=== PATIENT | male | born 1940 | race Caucasian/White ===

== ENCOUNTER → 2017-05-13 | Outpatient (CLI) | payer MEDICARE ==
[2017-05-13 16:47] LABS: ALT 34 U/L (21-72); AST 21 U/L (17-59); Alkaline Phosphatase 79 U/L (38-126); Anion Gap 13 mmol/L; Blood Urea Nitrogen 11 mg/dL (9-20); Carbon Dioxide 27 mmol/L (22-30); Chloride 102 mmol/L (98-107); Cholesterol 201 mg/dL (<200); Glucose 98 mg/dL (74-99); HDL Cholesterol 81 mg/dL (40-60); Non-African American GFR(MDRD) >60 (>60 ml/min/1.73 sqM); Sodium 142 mmol/L (137-145); Total Bilirubin 0.9 mg/dL (0.2-1.3); Total Protein 7.1 g/dL (6.3-8.2)
== END | disposition home or self-care (01) ==
LOC: LABWHC1 16:03
PROVIDERS: ATTEND Internal Medicine Interventional Cardiology
DX: E78.2 Mixed hyperlipidemia (principal)
CPT/HCPCS: 36415; 80053; 80061

== ENCOUNTER → 2018-05-14 | Outpatient (CLI) | payer MEDICARE ==
[2018-05-14 13:53] LABS: ALT 28 U/L (21-72); AST 23 U/L (17-59); Cholesterol 168 mg/dL (<200); HDL Cholesterol 78 mg/dL (40-60); LDL Cholesterol,Calculated 77 mg/dL (0-99); Triglycerides 64 mg/dL (<150)
== END | disposition home or self-care (01) ==
LOC: LABWHC1 13:24
PROVIDERS: ATTEND Internal Medicine Interventional Cardiology
DX: E78.2 Mixed hyperlipidemia (principal)
CPT/HCPCS: 36415; 80061; 84450; 84460

== ENCOUNTER → 2018-12-07 | Outpatient (CLI) | payer MEDICARE ==
[2018-12-07 18:44] LABS: Albumin 4.4 g/dL (3.80-4.90); Albumin/Globulin Ratio 1.83 (1.60-3.17); Anion Gap 6.3 mmol/L (4.00-12.00); Calcium 9.4 mg/dL (8.7-10.3); Carbon Dioxide 26.7 mmol/L (21.6-31.8); Globulin 2.4 g/dL (1.6-3.3); LDL Cholesterol,Calculated 91.4 mg/dL (0.0-131.0); Potassium 4.3 mmol/L (3.5-5.5); Total Bilirubin 0.9 mg/dL (0.3-1.2); Total Protein 6.8 g/dL (6.2-8.2); VLDL Calculation 21.6 mg/dL (5.00-40.00)
== END | disposition home or self-care (01) ==
LOC: LABWHC1 13:12
PROVIDERS: ATTEND Internal Medicine Interventional Cardiology
DX: E78.2 Mixed hyperlipidemia (principal)
CPT/HCPCS: 36415; 80053; 80061

== ENCOUNTER → 2019-06-16 | Outpatient (CLI) | payer MEDICARE ==
[2019-06-16 21:46] LABS: Chol/HDL Ratio 2.62; LDL Cholesterol,Calculated 98.6 mg/dL (0.0-131.0); VLDL Calculation 19.4 mg/dL (5.00-40.00)
== END | disposition home or self-care (01) ==
LOC: LABWHC1 14:09
PROVIDERS: ATTEND Nurse Practitioner Adult Health
DX: E78.2 Mixed hyperlipidemia (principal)
CPT/HCPCS: 36415; 80061; 84450; 84460

== ENCOUNTER → 2019-08-17 | Outpatient (CLI) | payer MEDICARE ==
[2019-08-17 19:21] LABS: Chol/HDL Ratio 2.81; LDL Cholesterol,Calculated 96.8 mg/dL (0.0-131.0); VLDL Calculation 17.2 mg/dL (5.00-40.00)
== END | disposition home or self-care (01) ==
LOC: LABWHC1 12:08
PROVIDERS: ATTEND Nurse Practitioner Adult Health
DX: E78.2 Mixed hyperlipidemia (principal)
CPT/HCPCS: 36415; 80061; 84450; 84460

== ENCOUNTER → 2020-06-26 | Outpatient (CLI) | payer MEDICARE ==
[2020-06-26 21:10] LABS: African American GFR (CKD) 98.5 (60.0-200.0); Albumin 4.1 g/dL (3.80-4.90); Albumin/Globulin Ratio 1.86 (1.60-3.17); Anion Gap 9.2 mmol/L (4.00-12.00); Calcium 9.3 mg/dL (8.7-10.3); Carbon Dioxide 25.8 mmol/L (21.6-31.8); Chol/HDL Ratio 2.53; Globulin 2.2 g/dL (1.6-3.3); LDL Cholesterol,Calculated 96.6 mg/dL (0.0-131.0); Potassium 4.4 mmol/L (3.5-5.5); Total Bilirubin 0.9 mg/dL (0.3-1.2); Total Protein 6.3 g/dL (6.2-8.2); VLDL Calculation 15.4 mg/dL (5.00-40.00)
== END | disposition home or self-care (01) ==
LOC: LABWHC1 13:08
PROVIDERS: ATTEND Internal Medicine Interventional Cardiology
DX: E78.2 Mixed hyperlipidemia (principal)
CPT/HCPCS: 36415; 80053; 80061

== ENCOUNTER → 2020-12-06 | Outpatient (CLI) | payer MEDICARE ==
[2020-12-07 02:27] LABS: African American GFR (CKD) 60.1 (60.0-200.0); Albumin 4.1 g/dL (3.80-4.90); Albumin/Globulin Ratio 2.05 (1.60-3.17); Anion Gap 11.5 mmol/L (4.00-12.00); BUN/Creat Ratio 13.85 Ratio (12.00-20.00); Calcium 9.6 mg/dL (8.7-10.3); Carbon Dioxide 24.5 mmol/L (21.6-31.8); Non-African American GFR(CKD) 51.9 (60.0-200.0); Potassium 4.3 mmol/L (3.5-5.5); Total Bilirubin 1.4 mg/dL (0.3-1.2); Total Protein 6.1 g/dL (6.2-8.2)
== END | disposition home or self-care (01) ==
LOC: LABWHC1 11:04
PROVIDERS: ATTEND Nurse Practitioner Adult Health
DX: I25.5 Ischemic cardiomyopathy (principal); R60.0 Localized edema
CPT/HCPCS: 36415; 80053; 83880

== ENCOUNTER 2020-12-07 11:59 | Inpatient (IN) | payer MEDICARE ==
[2020-12-07] MEDS ORDERED: FUROSEMIDE 10 MG/ML 4 ML VIAL IV STA (13:46)
--- NOTE | 2020-12-07 13:51 | ED ---
General Adult HPI - General Chief complaint: Shortness of Breath Stated complaint: SOB Time Seen by Provider: 12/07/20 12:10 Source: patient, RN notes reviewed, old records reviewed Mode of arrival: ambulatory Limitations: no limitations - History of Present Illness Initial comments: This is a 80-year-old male who presents emergency Department complaining of difficulty breathing. Patient states been ongoing for about a month. Patient states had a 15 pound weight gain in one month. Patient denies any chest pain or palpitations. Patient denies any cough fever chills per patient denies abdominal pain patient denies nausea vomiting diarrhea per patient denies headache patient denies lightheadedness dizziness or syncopal episode. Patient states he edema to his legs is now gone up into his thighs and is getting quite significant. [facility] and they sent him over here to be evaluated. - Related Data Home Medications Medication Instructions Recorded Confirmed Aspirin EC [Ecotrin Low Dose] 81 mg PO DAILY@0400 12/07/20 12/07/20 Atenolol [Tenormin] 50 mg PO DAILY@0400 12/07/20 12/07/20 Atorvastatin [Lipitor] 80 mg PO DAILY@0400 12/07/20 12/07/20 Ezetimibe [Zetia] 10 mg PO DAILY@0400 12/07/20 12/07/20 Furosemide [Lasix] 40 mg PO DAILY 12/07/20 12/07/20 Nitroglycerin Sl Tabs [Nitrostat] 0.4 mg SUBLINGUAL Q5M PRN 12/07/20 12/07/20 lisinopriL [Zestril] 5 mg PO DAILY@0400 12/07/20 12/07/20 Allergies Allergy/AdvReac Type Severity Reaction Status Date / Time No Known Allergies Allergy Verified 12/07/20 14:11 Review of Systems ROS Statement: Those systems with pertinent positive or pertinent negative responses have been documented in the HPI. ROS Other: All systems not noted in ROS Statement are negative. Past Medical History Past Medical History: Heart Failure, Myocardial Infarction ([place]) History of Any Multi-Drug Resistant Organisms: None Reported Past Surgical History: Heart Catheterization Additional Past Surgical History / Comment(s): liver lac repair, SPLENECTOMY. Past Psychological History: No Psychological Hx Reported Smoking Status: Never smoker Past Alcohol Use History: Occasional Past Drug Use History: None Reported General Exam - General Exam Comments Initial Comments: GENERAL: Patient is well-developed and well-nourished. Patient is nontoxic and well- hydrated and is in mild distress. ENT: Neck is soft and supple. No significant lymphadenopathy is noted. Oropharynx is clear. Moist mucous membranes. Neck has full range of motion without eliciting any pain. EYES: The sclera were anicteric and conjunctiva were pink and moist. Extraocular mo vements were intact and pupils were equal round and reactive to light. Eyelids were unremarkable. PULMONARY: Unlabored respirations. Good breath sounds bilaterally. Patient has decreased breath sounds on the right. CARDIOVASCULAR: There is a regular rate and rhythm without any murmurs gallops or rubs. ABDOMEN: Soft and nontender with normal bowel sounds. SKIN: Skin is clear with no lesions or rashes and otherwise unremarkable. NEUROLOGIC: Patient is alert and oriented x3. Cranial nerves II through XII are grossly intact. Motor and sensory are also intact. Normal speech, volume and content. Symmetrical smile. MUSCULOSKELETAL: Normal extremities with adequate strength and full range of motion. 2+ edema bilaterally in the legs. LYMPHATICS: No significant lymphadenopathy is note PSYCHIATRIC: Normal psychiatric evaluation. Limitations: no limitations Course Vital Signs 12/07/20 12:13 Temperature 97.7 F Pulse Rate 59 L Respiratory 18 Rate Blood Pressure 106/66 O2 Sat by Pulse 96 Oximetry Medical Decision Making - Medical Decision Making EKG shows sinus bradycardia with multiple PVCs at 56 bpm KS interval 290 QRS 134 QT interval [address] segment elevation no ST segment elevation or depression X-ray shows large pleural effusion on the right side. [facility] admitted to the neck on the patient today and he suggested infection was 15% down from 45 which is his baseline. [facility] agreed to admit the patient admitted the patient I wrote admitting orders and I consult cardiology. - Lab Data Result diagrams: 12/07/20 13:49 12/07/20 13:49 Lab Results 12/07/20 12/07/20 12/07/20 Range/Units 13:49 13:49 13:49 WBC 5.5 (3.8-10.6) k/uL RBC 4.08 L (4.30-5.90) m/uL Hgb 13.1 (13.0-17.5) gm/dL Hct 39.1 (39.0-53.0) % MCV 95.8 (80.0-100.0) fL MCH 32.1 (25.0-35.0) pg MCHC 33.4 (31.0-37.0) g/dL RDW 14.5 (11.5-15.5) % Plt Count 144 L (150-450) k/uL MPV 8.5 Neutrophils % 62 % Lymphocytes % 24 % Monocytes % 9 % Eosinophils % 2 % Basophils % 1 % Neutrophils # 3.4 (1.3-7.7) k/uL Lymphocytes # 1.4 (1.0-4.8) k/uL Monocytes # 0.5 (0-1.0) k/uL Eosinophils # 0.1 (0-0.7) k/uL Basophils # 0.0 (0-0.2) k/uL PT 13.6 H (9.0-12.0) sec INR 1.3 H (<1.2) APTT 24.3 (22.0-30.0) sec Sodium 139 (137-145) mmol/L Potassium 4.3 (3.5-5.1) mmol/L Chloride 105 (98-107) mmol/L Carbon Dioxide 27 (22-30) mmol/L Anion Gap 7 mmol/L BUN 21 H (9-20) mg/dL Creatinine 1.22 (0.66-1.25) mg/dL Est GFR (CKD-EPI)AfAm 65 (>60 ml/min/1.73 sqM) Est GFR (CKD-EPI)NonAf 56 (>60 ml/min/1.73 sqM) Glucose 105 H (74-99) mg/dL Plasma Lactic Acid Shane (0.7-2.0) mmol/L Calcium 9.5 (8.4-10.2) mg/dL Total Bilirubin 1.3 (0.2-1.3) mg/dL AST 33 (17-59) U/L ALT 31 (4-49) U/L Alkaline Phosphatase 99 (38-126) U/L Total Protein 6.2 L (6.3-8.2) g/dL Albumin 3.6 (3.5-5.0) g/dL 12/07/20 Range/Units 13:49 WBC (3.8-10.6) k/uL RBC (4.30-5.90) m/uL Hgb (13.0-17.5) gm/dL Hct (39.0-53.0) % MCV (80.0-100.0) fL MCH (25.0-35.0) pg MCHC (31.0-37.0) g/dL RDW (11.5-15.5) % Plt Count (150-450) k/uL MPV Neutrophils % % Lymphocytes % % Monocytes % % Eosinophils % % Basophils % % Neutrophils # (1.3-7.7) k/uL Lymphocytes # (1.0-4.8) k/uL Monocytes # (0-1.0) k/uL Eosinophils # (0-0.7) k/uL Basophils # (0-0.2) k/uL PT (9.0-12.0) sec INR (<1.2) APTT (22.0-30.0) sec Sodium (137-145) mmol/L Potassium (3.5-5.1) mmol/L Chloride (98-107) mmol/L Carbon Dioxide (22-30) mmol/L Anion Gap mmol/L BUN (9-20) mg/dL Creatinine (0.66-1.25) mg/dL Est GFR (CKD-EPI)AfAm (>60 ml/min/1.73 sqM) Est GFR (CKD-EPI)NonAf (>60 ml/min/1.73 sqM) Glucose (74-99) mg/dL Plasma Lactic Acid Shane 1.1 (0.7-2.0) mmol/L Calcium (8.4-10.2) mg/dL Total Bilirubin (0.2-1.3) mg/dL AST (17-59) U/L ALT (4-49) U/L Alkaline Phosphatase (38-126) U/L Total Protein (6.3-8.2) g/dL Albumin (3.5-5.0) g/dL Disposition Clinical Impression: Pleural effusion, Dyspnea, Pedal edema, Cardiac LV ejection fraction <20% Disposition: ADMITTED IP TO THIS [facility] Referrals: None,Stated [Primary Care Provider] - 1-2 days Time of Disposition: 14:29
[2020-12-07 14:00] LABS: Basophils % (A) 1 %; Eosinophils # (A) 0.1 k/uL (0-0.7); Eosinophils % (A) 2 %; HCT 39.1 % (39.0-53.0); HGB 13.1 gm/dL (13.0-17.5); Lymphocytes # (A) 1.4 k/uL (1.0-4.8); Lymphocytes % (A) 24 %; MCH 32.1 pg (25.0-35.0); MCHC 33.4 g/dL (31.0-37.0); MCV 95.8 fL (80.0-100.0); Mean Platelet Volume 8.5; Monocytes # (A) 0.5 k/uL (0-1.0); Monocytes % (A) 9 %; Neutrophils # (A) 3.4 k/uL (1.3-7.7); Neutrophils % (A) 62 %; Platelet Count 144 k/uL (150-450); RBC 4.08 m/uL (4.30-5.90); RDW 14.5 % (11.5-15.5); WBC 5.5 k/uL (3.8-10.6)
[2020-12-07 14:12] LABS: Albumin 3.6 g/dL (3.5-5.0); Calcium 9.5 mg/dL (8.4-10.2); Potassium 4.3 mmol/L (3.5-5.1); Total Bilirubin 1.3 mg/dL (0.2-1.3); Total Protein 6.2 g/dL (6.3-8.2)
[2020-12-07 14:13] LABS: INR 1.3 (<1.2); Partial Thromboplastin Time 24.3 sec (22.0-30.0); Prothrombin Time 13.6 sec (9.0-12.0)
--- NOTE | 2020-12-07 14:28 | XR ---
EXAMINATION TYPE: XR chest 2V DATE OF EXAM: 12/07/2020 COMPARISON: None INDICATION: Difficulty breathing TECHNIQUE: Frontal and lateral views of the chest are obtained. FINDINGS: The heart size is normal. The pulmonary vasculature is normal. There is a moderate right pleural effusion. IMPRESSION: 1. Moderate right pleural effusion
[2020-12-07] MEDS ORDERED: NITROGLYCERIN SL TABS 0.4 MG TAB SUBLINGUAL PRN (14:30)
[2020-12-07] MEDS: NITROGLYCERIN OINT 1 INCH/GM PACKET TOPICAL SCH (18:08)
[2020-12-07] MEDS ORDERED: FUROSEMIDE 10 MG/ML 2 ML VIAL IV SCH (21:00)
--- NOTE | 2020-12-07 22:14 | P.HPIM ---
History of Present Illness This is a pleasant 80 years old male with past medical history of heart failure. He is [facility] today from [facility] office for bilateral leg swelling and the pleural effusion. Also he has dyspnea especially with exertion. Patient states she had dyspnea with less than 3 weeks. Also noticed increase in his weight by 15 pounds 175 up to 190 pounds in the last 3 weeks, his dyspnea started getting worse over the last 2 weeks. But no chest pain no coughing or phlegm. He had little heart burn and this middle of his chest especially on walking which feels better now He denies chest pain. No change in urine or bowel habits. No fever. No nausea vomiting. He denies smoking, alcohol or illicit drugs He went to see his rn or lpn Dr. Cary, and his nurse practitioner evaluated him, he got a shot of Lasix and send him home but he did not take his prescription of oral Lasix and came back next day to see Dr. Cary per his recommendation, echocardiogram showed ejection fraction less than 20%, so he was sent to the hospital for fluid overload Vitas looks stable Labs including CBC, INR, BMP and liver enzymes are unremarkable, troponin is less than 0.012. [place] 55586. EKG showing sinus bradycardia at [address]-T changes and a few PVC. QTC is 434. Chest x-ray: Direct right pleural effusion In the emergency room he was started on Lasix 20 mg twice daily. Review of Systems CONSTITUTIONAL: No fever, no malaise, no fatigue. HEENT: No recent visual problems or hearing problems. Denied any sore throat. CARDIOVASCULAR: no palpitations, no syncope. PULMONARY: no cough, no hemoptysis. GASTROINTESTINAL: No diarrhea, no nausea, no vomiting, no abdominal pain. Normoactive bowel sounds. NEUROLOGICAL: No headaches, no weakness, no numbness. HEMATOLOGICAL: Denies any bleeding or petechiae. GENITOURINARY: Denies any burning micturition, frequency, or urgency. MUSCULOSKELETAL/RHEUMATOLOGICAL: Denies any joint pain, swelling, or any muscle pain. ENDOCRINE: Denies any polyuria or polydipsia. Past Medical History Past Medical History: Heart Failure, Myocardial Infarction ([place]) History of Any Multi-Drug Resistant Organisms: None Reported Past Surgical History: Heart Catheterization Additional Past Surgical History / Comment(s): liver lac repair, SPLENECTOMY. Past Psychological History: No Psychological Hx Reported Smoking Status: Never smoker Past Alcohol Use History: Occasional Past Drug Use History: None Reported - Past Family History Mother Family Medical History: No Reported History Father Family Medical History: Coronary Artery Disease (CAD) Medications and Allergies Home Medications Medication Instructions Recorded Confirmed Type Aspirin EC [Ecotrin Low Dose] 81 mg PO DAILY@0400 12/07/20 12/07/20 History Atenolol [Tenormin] 50 mg PO DAILY@0400 12/07/20 12/07/20 History Atorvastatin [Lipitor] 80 mg PO DAILY@0400 12/07/20 12/07/20 History Ezetimibe [Zetia] 10 mg PO DAILY@0400 12/07/20 12/07/20 History Furosemide [Lasix] 40 mg PO DAILY 12/07/20 12/07/20 History Nitroglycerin Sl Tabs [Nitrostat] 0.4 mg SUBLINGUAL Q5M PRN 12/07/20 12/07/20 History lisinopriL [Zestril] 5 mg PO DAILY@0 12/07/20 12/07/20 History Allergies Allergy/AdvReac Type Severity Reaction Status Date / Time No Known Allergies Allergy Verified 12/07/20 14:11 Physical Exam Vitals: Vital Signs Temp Pulse Resp BP Pulse Ox 12/07/20 12:13 97.7 F 59 L 18 106/66 96 Intake and Output 12/07/20 12/07/20 12/07/20 06:59 14:59 22:59 Other: Weight 86.183 kg GENERAL: The patient is alert and oriented x3, not in any acute distress. Well developed, well nourished. HEENT: Pupils are round and equally reacting to light. EOMI. No scleral icterus. No conjunctival pallor. Normocephalic, atraumatic. No pharyngeal erythema. No thyromegaly. CARDIOVASCULAR: S1 and S2 present. No murmurs, rubs, or gallops. -PULMONARY: Chest is clear to auscultation, no wheezing or crackles. Basal crepitation. Decreased breath sounds on the right basal site ABDOMEN: Soft, nontender, nondistended, normoactive bowel sounds. No palpable organomegaly. MUSCULOSKELETAL: No joint swelling or deformity. -EXTREMITIES: No cyanosis, clubbing,2+ bilateral pitting leg edema. NEUROLOGICAL: Gross neurological examination did not reveal any focal deficits. SKIN: No rashes. No petechiae Results CBC & Chem 7: 12/07/20 13:49 12/07/20 13:49 Labs: Abnormal Lab Results - Last 24 Hours (Table) 12/07/20 12/07/20 12/07/20 Range/Units 13:49 13:49 13:49 RBC 4.08 L (4.30-5.90) m/uL Plt Count 144 L (150-450) k/uL PT 13.6 H (9.0-12.0) sec INR 1.3 H (<1.2) BUN 21 H (9-20) mg/dL Glucose 105 H (74-99) mg/dL Total Protein 6.2 L (6.3-8.2) g/dL Assessment and Plan Assessment: Acute on chronic systolic CHF exacerbation,ejection fraction less than 20% per documentation of ED notes moderate right pleural effusion Hypertension Hyperlipidemia Plan: This is a pleasant 80 years old male who presents with fluid overload and acute CHF, check troponin. Cardiology consult. Continue with Lasix while monitoring electrolytes, weight and creatinine Labs and medication were reviewed.. Continue same treatment. Continue with symptomatic treatment. Resume home medication. Monitor lytes and vitals. DVT and GI prophylaxis. Further recommendations depends on the clinical course of the patient DVT prophylaxis: Subcutaneous heparin GI Prophylaxis: Pepcid PT/OT: Pending Prognosis is guarded
[2020-12-07] MEDS: FAMOTIDINE 20 MG/2 ML VIAL IV SCH (22:35)
[2020-12-07] MEDS: HEPARIN SODIUM,PORCINE 5,000 UNIT/ML 1 ML VIAL SQ SCH (22:35)
[2020-12-08] MEDS: NITROGLYCERIN OINT 1 INCH/GM PACKET TOPICAL SCH ×2 (00:12→05:56)
[2020-12-08] MEDS: ASPIRIN 81 MG PO SCH (03:32)
[2020-12-08] MEDS: atenoloL 50 MG TAB PO SCH (03:32)
[2020-12-08] MEDS: lisinopriL 5 MG TAB PO SCH (03:32)
[2020-12-08] MEDS: ATORVASTATIN 80 MG TAB PO SCH (03:32)
[2020-12-08] MEDS: EZETIMIBE 10 MG TAB PO SCH (03:33)
[2020-12-08 03:56] LABS: Cholesterol 99 mg/dL (<200); HDL Cholesterol 56 mg/dL (40-60); LDL Cholesterol,Calculated 32 mg/dL (0-99); Triglycerides 55 mg/dL (<150)
[2020-12-08] MEDS ORDERED: ASPIRIN 325 MG TAB PO SCH (09:00)
[2020-12-08] MEDS ORDERED: FUROSEMIDE 10 MG/ML 4 ML VIAL IV SCH (09:00)
[2020-12-08] MEDS: HEPARIN SODIUM,PORCINE 5,000 UNIT/ML 1 ML VIAL SQ SCH ×2 (09:12→21:58)
[2020-12-08] MEDS: FAMOTIDINE 20 MG/2 ML VIAL IV SCH (09:12)
--- NOTE | 2020-12-08 13:53 | P.CRDCN ---
History of Present Illness Consult date: 12/08/20 History of present illness: HISTORY OF PRESENT ILLNESS: This is a 80-year-old male with a past medical history significant for congestive heart failure and hypertension. Patient also reports a history of myocardial infarction in 2006. He states they tried [address] a stent but were unable to and he was treated with medications. Patient follows in the office with Dr. Cary. We have been asked to see the patient in consultation for congestive heart failure. Patient examined at the bedside. Patient was sent from his cardiology office secondary to congestive heart failure. Patient reports increased shortness of breath. Patient reports 15-20 pound weight gain over the last 3 weeks. He reports increased edema of his lower extremities. He received a dose of IV Lasix in the office 2 days ago with little improvement. Patient had an echocardiogram performed at the office revealing ejection fraction 15%, moderate pleural effusion, and small pericardial effusion. Patient's previous ejection fraction was 40-45%. EKG reveals sinus bradycardia with PVCs Chest xray moderate right pleural effusion Laboratory data: WBC 5.5. Hemoglobin 13.1. Platelet count 144. Sodium 139. Potassium 4.3. BUN 21. Creatinine 1.22. Troponin negative 3. BNP 12,800. Current home cardiac medications include lisinopril 5 mg daily, Lasix 40 mg daily, aspirin 81 mg daily, Zetia 10 mg daily, Lipitor 80 mg daily, and atenolol 50 mg daily REVIEW OF SYSTEMS: At the time of my exam: CONSTITUTIONAL: Denies fever or chills. HEENT: Denies blurred vision, vision changes, or eye pain. Denies hemoptysis CARDIOVASCULAR: Denies chest pain. Reports orthopnea. Denies PND. Denies palpitations RESPIRATORY: Reports mild shortness of breath. GASTROINTESTINAL: Denies abdominal pain. Denies nausea or vomiting. HEMATOLOGIC: Denies bleeding disorders. GENITOURINARY: Denies any blood in urine. SKIN: Denies pruitis. Denies rash. PHYSICAL EXAM: VITAL SIGNS: Reviewed. GENERAL: Well-developed in no acute distress. HEENT: Head is normocephalic. Pupils are equal, round. Sclerae anicteric. Mucous membranes of the mouth are moist. Neck supple. No JVD or thyromegaly LUNGS: Respirations even and unlabored. Lungs diminished with bibasilar rales HEART: Regular rate and rhythm. S1 and S2 heard. ABDOMEN: Soft. Nondistended. Nontender. EXTREMITIES: Normal range of motion. No clubbing or cyanosis. Peripheral pulses intact. 3+ bilateral lower extremity edema NEUROLOGIC: Awake and alert. Oriented x 3. ASSESSMENT: Shortness of breath Acute exacerbation of systolic heart failure, ejection fraction 15%, previously 40-45% Right-sided moderate pleural effusion History of myocardial infarction per patient, 2006 Hypertension Hyperlipidemia PLAN: Obtain limited echo Increase Lasix to 40 mg every 8 hours Stop Nitropaste Resume additional home cardiac medications Monitor kidney function Accurate I&O Daily weights Further recommendations pending patient's course Nurse practitioner note has been reviewed by physician. Signing provider agrees with the documented findings, assessment, and plan of care. Past Medical History Past Medical History: Heart Failure, Myocardial Infarction ([place]) Last Myocardial Infarction Date:: 2006 History of Any Multi-Drug Resistant Organisms: None Reported Past Surgical History: Heart Catheterization Additional Past Surgical History / Comment(s): liver lac repair, SPLENECTOMY. Past Anesthesia/Blood Transfusion Reactions: No Reported Reaction Past Psychological History: No Psychological Hx Reported Smoking Status: Never smoker Past Alcohol Use History: Occasional Past Drug Use History: None Reported - Past Family History Mother Family Medical History: No Reported History Father Family Medical History: Coronary Artery Disease (CAD) Medications and Allergies Home Medications Medication Instructions Recorded Confirmed Type Aspirin EC [Ecotrin Low Dose] 81 mg PO DAILY@0 12/07/20 12/07/20 History Atenolol [Tenormin] 50 mg PO DAILY@0 12/07/20 12/07/20 History Atorvastatin [Lipitor] 80 mg PO DAILY@0 12/07/20 12/07/20 History Ezetimibe [Zetia] 10 mg PO DAILY@0400 12/07/20 12/07/20 History Furosemide [Lasix] 40 mg PO DAILY 12/07/20 12/07/20 History Nitroglycerin Sl Tabs [Nitrostat] 0.4 mg SUBLINGUAL Q5M PRN 12/07/20 12/07/20 History lisinopriL [Zestril] 5 mg PO DAILY@0400 12/07/20 12/07/20 History Allergies Allergy/AdvReac Type Severity Reaction Status Date / Time No Known Allergies Allergy Verified 12/07/20 14:11 Physical Exam Vitals: Vital Signs Temp Pulse Pulse Resp BP BP Pulse Ox 12/08/20 11:48 98.0 F 64 16 100/56 99 12/08/20 09:10 98.1 F 73 18 99/55 94 L 12/08/20 08:00 18 12/08/20 03:25 98.1 F 65 18 97/65 98 12/08/20 02:00 18 12/07/20 23:35 98.2 F 60 18 92/55 12/07/20 21:00 16 12/07/20 20:45 98 F 72 16 127/67 96 12/07/20 19:33 100 12/07/20 18:05 84 18 136/70 98 12/07/20 15:20 62 18 120/70 100 12/07/20 12:13 97.7 F 59 L 18 106/66 96 Intake and Output 12/07/20 12/08/20 12/08/20 22:59 06:59 14:59 Intake Total 250 240 Output Total 850 275 Balance 250 -850 -35 Intake: Oral 250 240 Output: Urine 850 275 Other: Voiding Method Toilet Urinal Weight 86.183 kg 87.6 kg Results 12/07/20 13:49 12/07/20 13:49 Cardiac Enzymes 12/07/20 12/07/20 12/07/20 Range/Units 13:49 13:49 17:05 AST 33 (17-59) U/L Troponin I <0.012 0.014 (0.000-0.034) ng/mL 12/07/20 Range/Units 19:49 AST (17-59) U/L Troponin I 0.022 (0.000-0.034) ng/mL Coagulation 12/07/20 Range/Units 13:49 PT 13.6 H (9.0-12.0) sec APTT 24.3 (22.0-30.0) sec Lipids 12/07/20 Range/Units 13:49 Triglycerides 55 (<150) mg/dL Cholesterol 99 (<200) mg/dL HDL Cholesterol 56 (40-60) mg/dL CBC 12/07/20 Range/Units 13:49 WBC 5.5 (3.8-10.6) k/uL RBC 4.08 L (4.30-5.90) m/uL Hgb 13.1 (13.0-17.5) gm/dL Hct 39.1 (39.0-53.0) % Plt Count 144 L (150-450) k/uL Comprehensive Metabolic Panel 12/07/20 Range/Units 13:49 Sodium 139 (137-145) mmol/L Potassium 4.3 (3.5-5.1) mmol/L Chloride 105 (98-107) mmol/L Carbon Dioxide 27 (22-30) mmol/L BUN 21 H (9-20) mg/dL Creatinine 1.22 (0.66-1.25) mg/dL Glucose 105 H (74-99) mg/dL Calcium 9.5 (8.4-10.2) mg/dL AST 33 (17-59) U/L ALT 31 (4-49) U/L Alkaline Phosphatase 99 (38-126) U/L Total Protein 6.2 L (6.3-8.2) g/dL Albumin 3.6 (3.5-5.0) g/dL Current Medications Generic Name Dose Route Start Last Admin Trade Name Freq PRN Reason Stop Dose Admin Aspirin 81 mg 12/08/20 04:00 12/08/20 03:32 Aspirin 81 Mg PO 81 mg DAILY@0400 RANDALL Administration Atenolol 50 mg 12/08/20 04:00 12/08/20 03:32 Atenolol 50 Mg Tab PO 50 mg DAILY@0400 RANDALL Administration Atorvastatin Calcium 80 mg 12/08/20 04:00 12/08/20 03:32 Atorvastatin 80 Mg Tab PO 80 mg DAILY@0400 RANDALL Administration Ezetimibe 10 mg 12/08/20 04:00 12/08/20 03:33 Ezetimibe 10 Mg Tab PO 10 mg DAILY@0400 RANDALL Administration Famotidine 10 mg 12/08/20 21:00 Famotidine 20 Mg Tab PO Q12HR RANDALL Furosemide 40 mg 12/08/20 09:00 12/08/20 09:14 Furosemide 10 Mg/Ml 4 Ml Vial IV 40 mg Q12HR RANDALL Administration Heparin Sodium (Porcine) 5,000 unit 12/07/20 21:00 12/08/20 09:12 Heparin Sodium,Porcine 5,000 Unit/Ml 1 Ml Vial SQ 5,000 unit Q12HR R[facility]ALL Administration Lisinopril 5 mg 12/08/20 04:00 12/08/20 03:32 Lisinopril 5 Mg Tab PO 5 mg DAILY@0400 RANDALL Administration Nitroglycerin 0.4 mg 12/07/20 14:30 Nitroglycerin Sl Tabs 0.4 Mg Tab SUBLINGUAL Q5M PRN Chest Pain Intake and Output 12/07/20 12/08/20 12/08/20 22:59 06:59 14:59 Intake Total 250 240 Output Total 850 275 Balance 250 -850 -35 Intake: Oral 250 240 Output: Urine 850 275 Other: Voiding Method Toilet Urinal Weight 86.183 kg 87.6 kg 12/07/20 13:49 12/07/20 13:49
[2020-12-08] MEDS: FUROSEMIDE 10 MG/ML 4 ML VIAL IV SCH (16:01)
[2020-12-08 16:53] LABS: Glucose,Whole Blood 109 mg/dL (75-99)
--- NOTE | 2020-12-08 17:28 | P.PN ---
Subjective Progress Note Date: 12/08/20 Principal diagnosis: Acute exacerbation systolic CHF Dyspnea/right-sided pleural effusion 80 years old male with past medical history of heart failure. [facility] is [facility] from [facility] office for bilateral leg swelling and the pleural effusion. Also he has dyspnea especially with exertion. Patient states she had dyspnea with less than 3 weeks. Also noticed increase in his weight by 15 pounds 175 up to 190 pounds in the last 3 weeks, his dyspnea started getting worse over the last 2 weeks. But no chest pain no coughing or phlegm. He had little heart burn and this middle of his chest especially on walking which feels better now He denies chest pain. No change in urine or bowel habits. No fever. No nausea vomiting. He denies smoking, alcohol or illicit drugs He went to see his sommelier Dr. Cary, and his nurse practitioner evaluated him, he got a shot of Lasix and send him home but he did not take his prescription of oral Lasix and came back next day to see Dr. Cary per his recommendation, echocardiogram showed ejection fraction less than 20%, so he was sent to the hospital for fluid overload Vitas looks stable Labs including CBC, INR, BMP and liver enzymes are unremarkable, troponin is less than 0.012. [place] 44398. EKG showing sinus bradycardia at [address]-T changes and a few PVC. QTC is 434. Chest x-ray: Direct right pleural effusion In the emergency room he was started on Lasix 20 mg twice daily. Objective - Vital Signs Vital signs: Vital Signs Temp 98.1 F 12/08/20 09:10 Pulse 73 12/08/20 09:10 Resp 18 12/08/20 09:10 BP 99/55 12/08/20 09:10 Pulse Ox 94 L 12/08/20 09:10 Intake & Output 12/07/20 12/08/20 12/08/20 18:59 06:59 18:59 Intake Total 250 240 Output Total 850 275 Balance -600 -35 Weight 86.183 kg 87.6 kg Intake: Oral 250 240 Output: Urine 850 275 Other: Voiding Method Toilet Urinal - Exam GENERAL: The patient is alert and oriented x3, not in any acute distress. Well developed, well nourished. HEENT: Pupils are round and equally reacting to light. EOMI. No scleral icterus. No conjunctival pallor. Normocephalic, atraumatic. No pharyngeal erythema. No thyromegaly. CARDIOVASCULAR: S1 and S2 present. No murmurs, rubs, or gallops. -PULMONARY: Chest is clear to auscultation, no wheezing or crackles. Basal crepitation. Decreased breath sounds on the right basal site ABDOMEN: Soft, nontender, nondistended, normoactive bowel sounds. No palpable organomegaly. MUSCULOSKELETAL: No joint swelling or deformity. -EXTREMITIES: No cyanosis, clubbing,2+ bilateral pitting leg edema. NEUROLOGICAL: Gross neurological examination did not reveal any focal deficits. SKIN: No rashes. No petechiae - Labs CBC & Chem 7: 12/07/20 13:49 12/07/20 13:49 Labs: Abnormal Lab Results - Last 24 Hours (Table) 12/07/20 12/07/20 12/07/20 Range/Units 13:49 13:49 13:49 RBC 4.08 L (4.30-5.90) m/uL Plt Count 144 L (150-450) k/uL PT 13.6 H (9.0-12.0) sec INR 1.3 H (<1.2) BUN 21 H (9-20) mg/dL Glucose 105 H (74-99) mg/dL Total Protein 6.2 L (6.3-8.2) g/dL Assessment and Plan Assessment: Acute on chronic systolic CHF exacerbation,ejection fraction less than 20% per documentation of ED notes moderate right pleural effusion Hypertension Hyperlipidemia Plan: This is a pleasant 80 years old male who presents with fluid overload and acute CHF, check troponin. Cardiology consult. Continue with Lasix while monitoring electrolytes, weight and creatinine Labs and medication were reviewed.. Continue same treatment. Continue with symptomatic treatment. Resume home medication. Monitor lytes and vitals. DVT and GI prophylaxis. Further recommendations depends on the clinical course of the patient DVT prophylaxis: Subcutaneous heparin GI Prophylaxis: Pepcid PT/OT: Pending Prognosis is guarded
--- NOTE | 2020-12-08 17:34 | ECHOF ---
Referral Reason:LV function MEASUREMENTS -------- HEIGHT: 182.9 cm WEIGHT: 87.5 kg BP: 100/56 RVIDd: 3.7 cm (< 3.3) RAP: 5.00 mmHg RVSP: 43.33 mmHg FINDINGS -------- Limited Study Overall left ventricular systolic function is severely impaired with, an EF between 20 - 25 %. The right ventricle is mildly enlarged. Interatrial and interventricular septum intact. There is mild aortic valve sclerosis. Mild mitral regurgitation is present. Mild tricuspid regurgitation present. There is mild pulmonary hypertension. Trace/mild (physiologic) pulmonic regurgitation. The inferior vena cava is mildly dilated. There is no pericardial effusion. Moderate Pleural Effusion. CONCLUSIONS -------- 1. Limited Study 2. Overall left ventricular systolic function is severely impaired with, an EF between 20 - 25 %. 3. The right ventricle is mildly enlarged. 4. There is mild aortic valve sclerosis. 5. Mild mitral regurgitation is present. 6. Mild tricuspid regurgitation present. 7. There is mild pulmonary hypertension. 8. Trace/mild (physiologic) pulmonic regurgitation. 9. The inferior vena cava is mildly dilated. 10. There is no pericardial effusion. 11. Moderate Pleural Effusion. VEHICLE DELIVERY WORKER: Alexus Magana RDCS
[2020-12-08 20:10] LABS: Glucose,Whole Blood 109 mg/dL (75-99)
[2020-12-08] MEDS: FAMOTIDINE 20 MG TAB PO SCH (21:58)
[2020-12-09] MEDS: lisinopriL 5 MG TAB PO SCH (04:28)
[2020-12-09] MEDS: ATORVASTATIN 80 MG TAB PO SCH (04:28)
[2020-12-09] MEDS: atenoloL 50 MG TAB PO SCH (04:28)
[2020-12-09] MEDS: ASPIRIN 81 MG PO SCH (04:28)
[2020-12-09] MEDS: EZETIMIBE 10 MG TAB PO SCH (05:35)
[2020-12-09 06:28] LABS: Glucose,Whole Blood 107 mg/dL (75-99)
[2020-12-09] MEDS: FAMOTIDINE 20 MG TAB PO SCH ×2 (09:24→21:41)
[2020-12-09] MEDS: HEPARIN SODIUM,PORCINE 5,000 UNIT/ML 1 ML VIAL SQ SCH ×2 (09:24→21:41)
[2020-12-09 10:01] LABS: Calcium 8.8 mg/dL (8.4-10.2); Magnesium 1.5 mg/dL (1.6-2.3); Potassium 3.4 mmol/L (3.5-5.1)
[2020-12-09] MEDS ORDERED: POTASSIUM CHLORIDE ER 20 MEQ TAB.ER PO STA (10:19)
[2020-12-09] MEDS: FUROSEMIDE 10 MG/ML 4 ML VIAL IV SCH ×4 (11:15→23:17)
[2020-12-09] MEDS: MAGNESIUM SULFATE-D5W PMX 1 GM in DEXTROSE/WATER 1 100ML.BAG IVPB SCH ×3 (13:21→18:34)
[2020-12-09] MEDS: SODIUM CHLORIDE 0.9% 1,000 ML IV SCH (13:22)
--- NOTE | 2020-12-09 14:27 | P.PN ---
Subjective Progress Note Date: 12/09/20 HISTORY OF PRESENT ILLNESS: 12/08/2020 This is a 80-year-old male with a past medical history significant for congestive heart failure and hypertension. Patient also reports a history of myocardial infarction in 2006. He states they tried [address] a stent but were unable to and he was treated with medications. Patient follows in the office with Dr. Cary. We have been asked to see the patient in consultation for congestive heart failure. Patient examined at the bedside. Patient was sent from his cardiology office secondary to congestive heart failure. Patient rep orts increased shortness of breath. Patient reports 15-20 pound weight gain over the last 3 weeks. He reports increased edema of his lower extremities. He received a dose of IV Lasix in the office 2 days ago with little improvement. Patient had an echocardiogram performed at the office revealing ejection fraction 15%, moderate pleural effusion, and small pericardial effusion. Patient's previous ejection fraction was 40-45%. EKG reveals sinus bradycardia with PVCs Chest xray moderate right pleural effusion Laboratory data: WBC 5.5. Hemoglobin 13.1. Platelet count 144. Sodium 139. Potassium 4.3. BUN 21. Creatinine 1.22. Troponin negative 3. BNP 12,800. Current home cardiac medications include lisinopril 5 mg daily, Lasix 40 mg daily, aspirin 81 mg daily, Zetia 10 mg daily, Lipitor 80 mg daily, and atenolol 50 mg daily 12/09/2020 Patient examined this morning at the bedside. Patient denies chest pain. He reports his shortness of breath has improved. He continues to have lower extremity edema although it is improved from yesterday. Patients blood pressure was running in the 80s this morning. He received lisinopril and atenolol at 4 AM. Echocardiogram completed revealed ejection fraction 20-25%, mild mitral regurgitation, mild tricuspid regurgitation, mild pulmonary hypertension, moderate pleural effusion. PHYSICAL EXAM: VITAL SIGNS: Reviewed. GENERAL: Well-developed in no acute distress. HEENT: Head is normocephalic. Pupils are equal, round. Sclerae anicteric. Mucous membranes of the mouth are moist. Neck supple. No JVD or thyromegaly LUNGS: Respirations even and unlabored. Lungs diminished with bibasilar rales HEART: Regular rate and rhythm. S1 and S2 heard. ABDOMEN: Soft. Nondistended. Nontender. EXTREMITIES: Normal range of motion. No clubbing or cyanosis. Peripheral pulses intact. 3+ bilateral lower extremity edema NEUROLOGIC: Awake and alert. Oriented x 3. ASSESSMENT: Shortness of breath Acute exacerbation of systolic heart failure, ejection fraction 20-25%, previously 40-45% Right-sided moderate pleural effusion History of myocardial infarction per patient, 2006 Hypertension Hyperlipidemia Hypotension Hypokalemia Hypomagnesemia PLAN: Discontinue atenolol due to hypotension Decrease lisinopril with parameters to hold for SBP less than 100 Lasix unable to be given this morning due to hypotension Begin 0.9NS at 50cc/hr Consult placed for IR for right sided thoracentesis. However, per nursing IR not staffed on weekends. Will consult pulmonary to evaluate patient for right sided thoracentesis. Monitor kidney function Accurate I&O Daily weights Replace potassium Replace magnesium Further recommendations pending patient's course Nurse practitioner note has been reviewed by physician. Signing provider agrees with the documented findings, assessment, and plan of care. Objective - Vital Signs Vital signs: Vital Signs Temp 98.2 F 12/09/20 13:20 Pulse 58 L 12/09/20 13:20 Resp 18 12/09/20 13:20 BP 85/48 12/09/20 13:20 Pulse Ox 95 12/09/20 13:20 Intake & Output 12/08/20 12/09/20 12/09/20 18:59 06:59 18:59 Intake Total 358 240 480 Output Total 1750 1000 Balance -1392 -760 480 Intake: Oral 358 240 480 Output: Urine 1750 1000 Other: Voiding Method Toilet Toilet Toilet Urinal Urinal Urinal # Voids 1 # Bowel Movements 1 - Labs CBC & Chem 7: 12/07/20 13:49 12/09/20 08:39 Labs: Abnormal Lab Results - Last 24 Hours (Table) 12/08/20 12/08/20 12/09/20 Range/Units 16:52 20:06 06:09 Potassium (3.5-5.1) mmol/L Carbon Dioxide (22-30) mmol/L BUN (9-20) mg/dL Glucose (74-99) mg/dL POC Glucose (mg/dL) 109 H 109 H 107 H (75-99) mg/dL Magnesium (1.6-2.3) mg/dL 12/09/20 Range/Units 08:39 Potassium 3.4 L (3.5-5.1) mmol/L Carbon Dioxide 34 H (22-30) mmol/L BUN 23 H (9-20) mg/dL Glucose 133 H (74-99) mg/dL POC Glucose (mg/dL) (75-99) mg/dL Magnesium 1.5 L (1.6-2.3) mg/dL
--- NOTE | 2020-12-09 16:13 | P.PN ---
Subjective Progress Note Date: 12/09/20 Principal diagnosis: Acute exacerbation systolic CHF Dyspnea/right-sided pleural effusion 80 years old male with past medical history of heart failure. He is sent today from [facility] office for bilateral leg swelling and the pleural effusion. Also he has dyspnea especially with exertion. Patient states she had dyspnea with less than 3 weeks. Also noticed increase in his weight by 15 pounds 175 up to 190 pounds in the last 3 weeks, his dyspnea started getting worse over the last 2 weeks. But no chest pain no coughing or phlegm. He had little heart burn and this middle of his chest especially on walking which feels better now He denies chest pain. No change in urine or bowel habits. No fever. No nausea vomiting. He denies smoking, alcohol or illicit drugs He went to see his flag decorator Dr. Cary, and his nurse practitioner evaluated him, he got a shot of Lasix and send him home but he did not take his prescription of oral Lasix and came back next day to see Dr. Cary per his recommendation, echocardiogram showed ejection fraction less than 20%, so he was sent to the hospital for fluid overload Vitas looks stable Labs including CBC, INR, BMP and liver enzymes are unremarkable, troponin is less than 0.012. [place] 393[address]. EKG showing sinus bradycardia at [address]-T changes and a few PVC. QTC is 434. Chest x-ray: Direct right pleural effusion In the emergency room he was started on Lasix 20 mg twice daily. 12/09/2020 Patient is seen and evaluated in room at bedside; denies any complaint of chest pain; patient does report improvement in breathing; reports improvement in lower extremity edema Vital signs are reviewed which reveal softer blood pressure; patient did receive antihypertensive medications in form of lisinopril and atenolol this morning Echocardiogram is completed revealing an ejection fraction of 20-25%, mild mitral regurgitation, mild tricuspid regurgitation, mild pulmonary hypertension and moderate pleural effusion Cardiology recommending to discontinue atenolol at this time due to hypotension but plans to decrease lisinopril; patient has been started on slow IV fluid hydration with normal saline at a rate of 50 mL an hour Pulmonary service is consulted for possible right thoracentesis Objective - Vital Signs Vital signs: Vital Signs Temp 97.8 F 12/09/20 04:18 Pulse 68 03/20/21 04:18 Resp 18 12/09/20 04:18 BP 102/52 12/09/20 04:18 Pulse Ox 95 12/09/20 04:18 Intake & Output 12/08/20 12/09/20 12/09/20 18:59 06:59 18:59 Intake Total 358 240 480 Output Total 1750 1000 Balance -1392 -760 480 Intake: Oral 358 240 480 Output: Urine 1750 1000 Other: Voiding Method Toilet Toilet Urinal Urinal # Voids 1 # Bowel Movements 1 - Exam GENERAL: The patient is alert and oriented x3, not in any acute distress. Well developed, well nourished. HEENT: Pupils are round and equally reacting to light. EOMI. No scleral icterus. No conjunctival pallor. Normocephalic, atraumatic. No pharyngeal erythema. No thyromegaly. CARDIOVASCULAR: S1 and S2 present. No murmurs, rubs, or gallops. -PULMONARY: Chest is clear to auscultation, no wheezing or crackles. Basal crepitation. Decreased breath sounds on the right basal site ABDOMEN: Soft, nontender, nondistended, normoactive bowel sounds. No palpable organomegaly. MUSCULOSKELETAL: No joint swelling or deformity. -EXTREMITIES: No cyanosis, clubbing,2+ bilateral pitting leg edema. NEUROLOGICAL: Gross neurological examination did not reveal any focal deficits. SKIN: No rashes. No petechiae - Labs CBC & Chem 7: 12/07/20 13:49 12/09/20 08:39 Labs: Abnormal Lab Results - Last 24 Hours (Table) 12/08/20 12/08/20 12/09/20 Range/Units 16:52 20:06 06:09 Potassium (3.5-5.1) mmol/L Carbon Dioxide (22-30) mmol/L BUN (9-20) mg/dL Glucose (74-99) mg/dL POC Glucose (mg/dL) 109 H 109 H 107 H (75-99) mg/dL Magnesium (1.6-2.3) mg/dL 12/09/20 Range/Units 08:39 Potassium 3.4 L (3.5-5.1) mmol/L Carbon Dioxide 34 H (22-30) mmol/L BUN 23 H (9-20) mg/dL Glucose 133 H (74-99) mg/dL POC Glucose (mg/dL) (75-99) mg/dL Magnesium 1.5 L (1.6-2.3) mg/dL Assessment and Plan Assessment: Acute on chronic systolic CHF exacerbation,ejection fraction less than 20% per documentation of ED notes moderate right pleural effusion Hypertension Hyperlipidemia Plan: This is a pleasant 80 years old male who presents with fluid overload and acute CHF, check troponin. Cardiology consult. Continue with Lasix while monitoring electrolytes, weight and creatinine Labs and medication were reviewed.. Continue same treatment. Continue with symptomatic treatment. Resume home medication. Monitor lytes and vitals. DVT and GI prophylaxis. Further recommendations depends on the clinical course of the patient DVT prophylaxis: Subcutaneous heparin GI Prophylaxis: Pepcid PT/OT: Pending Prognosis is guarded
--- NOTE | 2020-12-09 17:37 | US ---
EXAMINATION TYPE: US chest DATE OF EXAM: 12/09/2020 COMPARISON: NONE CLINICAL HISTORY: Right sided effusion. Right pleural effusion TECHNIQUE: Targeted ultrasound of the posterior lower right hemithorax EXAM MEASUREMENTS: Right Pleural Effusion pocket size: 16 cm Right skin surface to fluid distance: 2.2 cm lung tissue visualized 3.3 cm in pocket. Right side marked for possible thoracentesis outside the dept. Pulmonologists are able to review the images in the patient?s EMR. IMPRESSIONS: Large right pleural effusion is demonstrated.
[2020-12-10 02:32] LABS: Magnesium 2.2 mg/dL (1.6-2.3); Potassium 3.8 mmol/L (3.5-5.1)
[2020-12-10] MEDS ORDERED: POTASSIUM CHLORIDE ER 20 MEQ TAB.ER PO STA ×2 (03:51→11:29)
[2020-12-10] MEDS: EZETIMIBE 10 MG TAB PO SCH (04:09)
[2020-12-10] MEDS: ATORVASTATIN 80 MG TAB PO SCH (04:09)
[2020-12-10 08:12] LABS: Calcium 8.5 mg/dL (8.4-10.2); Magnesium 2.1 mg/dL (1.6-2.3); Potassium 3.5 mmol/L (3.5-5.1)
[2020-12-10] MEDS: HEPARIN SODIUM,PORCINE 5,000 UNIT/ML 1 ML VIAL SQ SCH ×2 (09:52→20:07)
[2020-12-10] MEDS: FAMOTIDINE 20 MG TAB PO SCH ×2 (09:52→20:07)
[2020-12-10] MEDS: FUROSEMIDE 10 MG/ML 4 ML VIAL IV SCH ×2 (09:53→18:51)
[2020-12-10] MEDS ORDERED: AMIODARONE 360 MG in DEXTROSE 5% IN WATER 200 ML IV ONE ×2 (11:28)
[2020-12-10] MEDS ORDERED: DEXTROSE 5% IN WATER 100 ML with AMIODARONE 150 MG IV ONE (11:28)
--- NOTE | 2020-12-10 12:48 | P.PN ---
Subjective Progress Note Date: 12/10/20 HISTORY OF PRESENT ILLNESS: 12/08/2020 This is a 80-year-old male with a past medical history significant for congestive heart failure and hypertension. Patient also reports a history of myocardial infarction in 2006. He states they tried [address] a stent but were unable to and he was treated with medications. Patient follows in the office with Dr. Cary. We have been asked to see the patient in consultation for congestive heart failure. Patient examined at the bedside. Patient was sent from his cardiology office secondary to congestive heart failure. Patient rep orts increased shortness of breath. Patient reports 15-20 pound weight gain over the last 3 weeks. He reports increased edema of his lower extremities. He received a dose of IV Lasix in the office 2 days ago with little improvement. Patient had an echocardiogram performed at the office revealing ejection fraction 15%, moderate pleural effusion, and small pericardial effusion. Patient's previous ejection fraction was 40-45%. EKG reveals sinus bradycardia with PVCs Chest xray moderate right pleural effusion Laboratory data: WBC 5.5. Hemoglobin 13.1. Platelet count 144. Sodium 139. Potassium 4.3. BUN 21. Creatinine 1.22. Troponin negative 3. BNP 12,800. Current home cardiac medications include lisinopril 5 mg daily, Lasix 40 mg daily, aspirin 81 mg daily, Zetia 10 mg daily, Lipitor 80 mg daily, and atenolol 50 mg daily 12/09/2020 Patient examined this morning at the bedside. Patient denies chest pain. He reports his shortness of breath has improved. He continues to have lower extremity edema although it is improved from yesterday. Patients blood pressure was running in the 80s this morning. He received lisinopril and atenolol at 4 AM. Echocardiogram completed revealed ejection fraction 20-25%, mild mitral regurgitation, mild tricuspid regurgitation, mild pulmonary hypertension, moderate pleural effusion. 12/10/2020 Patient examined this morning at the bedside. He denies chest pain or pressure. He reports improvement in his shortness of breath. Patient's blood pressure this morning is 97/58. His lisinopril was held as morning as there are parameters to hold for systolic blood pressure less than 100. Patient had a 17 beat run of V. tach overnight. PHYSICAL EXAM: VITAL SIGNS: Reviewed. GENERAL: Well-developed in no acute distress. HEENT: Head is normocephalic. Pupils are equal, round. Sclerae anicteric. Mucous membranes of the mouth are moist. Neck supple. No JVD or thyromegaly LUNGS: Respirations even and unlabored. Lungs diminished with bibasilar rales HEART: Regular rate and rhythm. S1 and S2 heard. ABDOMEN: Soft. Nondistended. Nontender. EXTREMITIES: Normal range of motion. No clubbing or cyanosis. Peripheral pulses intact. 3+ bilateral lower extremity edema NEUROLOGIC: Awake and alert. Oriented x 3. ASSESSMENT: Shortness of breath Acute exacerbation of systolic heart failure, ejection fraction 20-25%, previously 40-45% Right-sided large pleural effusion History of myocardial infarction per patient, 2006 Hypertension Hyperlipidemia Hypotension Hypokalemia Hypomagnesemia Nonsustained ventricular tachycardia PLAN: Resume beta brianna. We'll start carvedilol 1.563 mg twice a day Continue current dose of lisinopril. Hold for systolic blood pressure less than 100 Begin amiodarone bolus and infusion Replace potassium. 40 meq 1 Continue IV Lasix Monitor kidney function Accurate I&O Daily weights Pulmonary following. Plans for thoracentesis today. Patient will require lifevest versus ICD implantation due to cardiomyopathy Further recommendations pending patient's course Nurse practitioner note has been reviewed by physician. Signing provider agrees with the documented findings, assessment, and plan of care. Objective - Vital Signs Vital signs: Vital Signs Temp 97.1 F L 12/10/20 11:34 Pulse 73 12/10/20 11:34 Resp 16 12/10/20 11:34 BP 103/61 12/10/20 11:34 Pulse Ox 98 12/10/20 11:34 Intake & Output 12/09/20 12/10/20 12/10/20 18:59 06:59 18:59 Intake Total 1200 Output Total 1775 1450 400 Balance -458 -9138 -400 Weight 84.1 kg Intake: Oral 1200 Output: Urine 1775 1450 400 Other: Voiding Method Toilet Toilet Toilet Urinal Urinal Urinal - Labs CBC & Chem 7: 12/07/20 13:49 12/10/20 06:52 Labs: Abnormal Lab Results - Last 24 Hours (Table) 12/10/20 Range/Units 06:52 Carbon Dioxide 36 H (22-30) mmol/L BUN 22 H (9-20) mg/dL Glucose 108 H (74-99) mg/dL
--- NOTE | 2020-12-10 12:55 | XR ---
EXAMINATION TYPE: XR chest 1V portable DATE OF EXAM: 12/10/2020 COMPARISON: 12/07/2020 INDICATION: Post right thoracentesis TECHNIQUE: Single frontal view of the chest is obtained. FINDINGS: The heart size is mildly prominent. The pulmonary vasculature is normal. Minimal residual right pleural effusion is present. No pneumothorax is evident. IMPRESSION: 1. Minimal residual right pleural effusion. 2. No pneumothorax postthoracentesis 3. Mild cardiomegaly
[2020-12-10 13:22] LABS: Appearance,BF Clear; Color,BF Yellow; Nucleated Cells, Body Fluid 204 /uL; RBC, Body Fluid 4 /uL
[2020-12-10 13:24] LABS: Mononuclear WBC,Body Fluid 100 %; Total Cells Counted,Body Fluid 100
--- NOTE | 2020-12-10 14:20 | P.CNPUL ---
History of Present Illness Consult date: 12/10/20 Requesting physician: Mejia Beasley Reason for consult: dyspnea, pleural effusion, abnormal CXR/CT Chief complaint: Shortness of breath History of present illness: This is a very pleasant 80-year-old gentleman who has a history of coronary artery disease, hypertension, hyperlipidemia, congestive heart failure. He presented to the emergency room on 12/07/2020 after developing increasing short ness of breath and increased swelling of the lower extremities with a 15 pound weight gain. His x-ray revealed a moderate right-sided pleural effusion. Echocardiogram revealed severe rectal impaired left ventricular systolic function with ejection fraction of 20-25%. Ultrasound of the right chest revealed a 16 cm pocket. He is seen today in consultation on the selective care unit. He is currently sitting up in the bedside. Awake and alert in no acute distress. He states his shortness of breath has been progressing over the past 1-2 months. Continues to maintain O2 saturations in the 90s on room air. He's been afebrile. Hemodynamically stable. Sodium 137. Potassium 3.5. Creatinine 1.17. Dr. Lagunas did go ahead and perform a right-sided thoracentesis today. 2 L of turbulent yellow fluid was removed. Fluid analysis and cytology pending. Follow-up chest x-ray reviewed reveals near complete resolution of the effusion. No pneumothorax. Review of Systems REVIEW OF SYSTEMS: CONSTITUTIONAL: Positive for a 15 pound weight gain. EYES: Denies change in vision. EARS, NOSE, MOUTH, THROAT: Denies headaches, denies sore throat. CARDIOVASCULAR: Denies chest pain, palpitations or syncopal episodes. RESPIRATORY: Positive for shortness of breath, cough, congestion no hemoptysis. GASTROINTESTINAL: Denies change in appetite, denies abdominal pain GENITOURINARY: Denies hematuria, denies infections. MUSKULOSKELETAL: Denies pain, denies swelling. INTEGUMENTARY: Increasing lower extremity edema NEUROLOGICAL: Denies recent memory loss, no recent seizure activity. PSYCHIATRIC: Denies anxiety, denies depression. HEMATOLOGIC/LYMPHATIC: Denies anemia, denies enlarged lymph nodes. Past Medical History Past Medical History: Heart Failure, Myocardial Infarction ([place]) Last Myocardial Infarction Date:: 2006 History of Any Multi-Drug Resistant Organisms: None Reported Past Surgical History: Heart Catheterization Additional Past Surgical History / Comment(s): liver lac repair, SPLENECTOMY. Past Anesthesia/Blood Transfusion Reactions: No Reported Reaction Past Psychological History: No Psychological Hx Reported Smoking Status: Never smoker Past Alcohol Use History: Occasional Past Drug Use History: None Reported - Past Family History Mother Family Medical History: No Reported History Father Family Medical History: Coronary Artery Disease (CAD) Medications and Allergies Home Medications Medication Instructions Recorded Confirmed Type Aspirin EC [Ecotrin Low Dose] 81 mg PO DAILY@0400 12/07/20 12/07/20 History Atenolol [Tenormin] 50 mg PO DAILY@0400 12/07/20 12/07/20 History Atorvastatin [Lipitor] 80 mg PO DAILY@0400 12/07/20 12/07/20 History Ezetimibe [Zetia] 10 mg PO DAILY@0 12/07/20 12/07/20 History Furosemide [Lasix] 40 mg PO DAILY 12/07/20 12/07/20 History Nitroglycerin Sl Tabs [Nitrostat] 0.4 mg SUBLINGUAL Q5M PRN 12/07/20 12/07/20 History lisinopriL [Zestril] 5 mg PO DAILY@0400 12/07/20 12/07/20 History Allergies Allergy/AdvReac Type Severity Reaction Status Date / Time No Known Allergies Allergy Verified 12/07/20 14:11 Physical Exam Vitals: Vital Signs Temp Pulse Resp BP Pulse Ox 12/10/20 11:34 97.1 F L 73 16 103/61 98 12/10/20 09:45 97.2 F L 71 18 97/58 97 12/10/20 04:05 97.9 F 69 17 104/56 95 12/09/20 23:10 97.9 F 63 16 93/61 95 12/09/20 19:28 98.1 F 60 16 93/55 95 12/09/20 17:10 98.6 F 52 L 16 105/63 98 Intake and Output 12/09/20 12/10/20 12/10/20 22:59 06:59 14:59 Intake Total 480 Output Total 625 825 400 Balance -451 -492 -400 Intake: Oral 480 Output: Urine 625 825 400 Other: Voiding Method Toilet Toilet Toilet Urinal Urinal Urinal Weight 84.1 kg GENERAL EXAM: Alert, very pleasant 80-year-old gentleman, on room air, comfortable in no apparent distress. HEAD: Normocephalic. EYES: Normal reaction of pupils, equal size. NOSE: Clear with pink turbinates. THROAT: No erythema or exudates. NECK: No masses, no JVD. CHEST: No chest wall deformity. LUNGS: Equal air entry with crackles in the right base, dullness, diminished. CVS: S1 and S2 normal with no audible murmur, regular rhythm. ABDOMEN: No hepatosplenomegaly, normal bowel sounds, no guarding or rigidity. SPINE: No scoliosis or deformity SKIN: No rashes CENTRAL NERVOUS SYSTEM: No focal deficits, tone is normal in all 4 extremities. EXTREMITIES: There is no peripheral edema. No clubbing, no cyanosis. Peripheral pulses are intact. Results - Laboratory Findings CBC and BMP: 12/07/20 13:49 12/10/20 06:52 PT/INR, D-dimer PT 13.6 sec (9.0-12.0) H 12/07/20 13:49 INR 1.3 (<1.2) H 12/07/20 13:49 Abnormal lab findings: Abnormal Labs 12/07/20 12/07/20 12/07/20 13:49 13:49 13:49 RBC 4.08 L Plt Count 144 L PT 13.6 H INR 1.3 H Potassium Carbon Dioxide BUN 21 H Glucose 105 H POC Glucose (mg/dL) Magnesium Total Protein 6.2 L 12/08/20 12/08/20 12/09/20 16:52 20:06 06:09 RBC Plt Count PT INR Potassium Carbon Dioxide BUN Glucose POC Glucose (mg/dL) 109 H 109 H 107 H Magnesium Total Protein 12/09/20 12/10/20 08:39 06:52 RBC Plt Count PT INR Potassium 3.4 L Carbon Dioxide 34 H 36 H BUN 23 H 22 H Glucose 133 H 108 H POC Glucose (mg/dL) Magnesium 1.5 L Total Protein - Diagnostic Findings Chest x-ray: image reviewed Assessment and Plan Assessment: 1 Acute exacerbation of systolic congestive heart failure 2 Large right-sided pleural effusion secondary to above, status post thoracentesis on 12/10/2020 2 L removed 3 Severe ischemic cardiomyopathy with ejection fraction 20-25% 4 History of coronary disease 5 Hypertension 6 Hyperlipidemia 7 History of splenectomy 8 History of liver laceration with repair Plan: The patient was seen and evaluated by Dr. Lagunas Chest x-ray, echocardiogram, ultrasound and labs reviewed He did perform a thoracentesis today with 2 L of turbid yellow fluid removed Follow up chest x-ray revealed near complete resolution, no pneumothorax Fluid analysis and cytology pending Continue diuretics We will continue to follow and make further recommendations based on his clinical status I, the cosigning physician, performed a history & physical examination of the patient. Lungs sounds with crackles in the right posterior base, dullness, diminished Maintaining good O2 saturations in the 90s on room air. I discussed the assessment and plan of care with my nurse practitioner, Kathryn Guillermo. I attest to the above consultation as dictated by her. Time with Patient: Greater than 30
--- NOTE | 2020-12-10 15:20 | P.PN ---
Subjective Progress Note Date: 12/10/20 Principal diagnosis: Acute exacerbation systolic CHF Dyspnea/right-sided pleural effusion 80 years old male with past medical history of heart failure. [facility] is [facility] for bilateral leg swelling and the pleural effusion. Also he has dyspnea especially with exertion. Patient states she had dyspnea with less than 3 weeks. Also noticed increase in his weight by 15 pounds 175 up to 190 pounds in the last 3 weeks, his dyspnea started getting worse over the last 2 weeks. But no chest pain no coughing or phlegm. He had little heart burn and this middle of his chest especially on walking which feels better now He denies chest pain. No change in urine or bowel habits. No fever. No nausea vomiting. He denies smoking, alcohol or illicit drugs He went to see his lean consultant Dr. Cary, and his nurse practitioner evaluated him, he got a shot of Lasix and send him home but he did not take his prescription of oral Lasix and came back next day to see Dr. Cary per his recommendation, echocardiogram showed ejection fraction less than 20%, so he was sent to the hospital for fluid overload Vitas looks stable Labs including CBC, INR, BMP and liver enzymes are unremarkable, troponin is less than 0.012. [place] 80[address]. EKG showing sinus bradycardia at [address]-T changes and a few PVC. QTC is 434. Chest x-ray: Direct right pleural effusion In the emergency room he was started on Lasix 20 mg twice daily. 12/09/2020 Patient is seen and evaluated in room at bedside; denies any complaint of chest pain; patient does report improvement in breathing; reports improvement in lower extremity edema Vital signs are reviewed which reveal softer blood pressure; patient did receive antihypertensive medications in form of lisinopril and atenolol this morning Echocardiogram is completed revealing an ejection fraction of 20-25%, mild mitral regurgitation, mild tricuspid regurgitation, mild pulmonary hypertension and moderate pleural effusion Cardiology recommending to discontinue atenolol at this time due to hypotension but plans to decrease lisinopril; patient has been started on slow IV fluid hydration with normal saline at a rate of 50 mL an hour Pulmonary service is consulted for possible right thoracentesis 12/10/2020 Patient is seen and evaluated sitting comfortably in bed; patient is status post thoracocentesis Large right-sided pleural effusion with patient status post thoracentesis, with removal of 2 L of turbulent yellow fluid which is sent for cytology; post thoracentesis chest x-rays reviewed which reveals near complete resolution of effusion with no pneumothorax; patient remains on diuretic therapy Vital signs are reviewed and remained stable; patient was hypotensive earlier in the day with cardiology decreasing atenolol and patient is started on slow IV fluid hydration with normal saline at rate of 50 mL an hour; patient is restarted on Coreg at 1.563 mg twice a day; cardiology recommending to continue with current dose of lisinopril Echocardiogram reveals an EF of 20-25% which was previously 40-45%; patient is started on IV amiodarone bolus and infusion; patient will require LifeVest versus ICD implantation due to severe cardiomyopathy Objective - Vital Signs Vital signs: Vital Signs Temp 97.2 F L 12/10/20 09:45 Pulse 71 12/10/20 09:45 Resp 18 12/10/20 09:45 BP 97/58 12/10/20 09:45 Pulse Ox 97 12/10/20 09:45 Intake & Output 12/09/20 12/10/20 12/10/20 18:59 06:59 18:59 Intake Total 1200 Output Total 1775 1450 400 Balance -575 -1450 -400 Weight 84.1 kg Intake: Oral 1200 Output: Urine 1775 1450 400 Other: Voiding Method Toilet Toilet Toilet Urinal Urinal Urinal - Exam GENERAL: The patient is alert and oriented x3, not in any acute distress. Well developed, well nourished. HEENT: Pupils are round and equally reacting to light. EOMI. No scleral icterus. No conjunctival pallor. Normocephalic, atraumatic. No pharyngeal erythema. No th yromegaly. CARDIOVASCULAR: S1 and S2 present. No murmurs, rubs, or gallops. -PULMONARY: Chest is clear to auscultation, no wheezing or crackles. Basal crepitation. Decreased breath sounds on the right basal site ABDOMEN: Soft, nontender, nondistended, normoactive bowel sounds. No palpable organomegaly. MUSCULOSKELETAL: No joint swelling or deformity. -EXTREMITIES: No cyanosis, clubbing,2+ bilateral pitting leg edema. NEUROLOGICAL: Gross neurological examination did not reveal any focal deficits. SKIN: No rashes. No petechiae - Labs CBC & Chem 7: 12/07/20 13:49 12/10/20 06:52 Labs: Abnormal Lab Results - Last 24 Hours (Table) 12/10/20 Range/Units 06:52 Carbon Dioxide 36 H (22-30) mmol/L BUN 22 H (9-20) mg/dL Glucose 108 H (74-99) mg/dL Assessment and Plan Assessment: Acute on chronic systolic CHF exacerbation,ejection fraction less than 20% per documentation of ED notes moderate right pleural effusion Hypertension Hyperlipidemia Plan: This is a pleasant 80 years old male who presents with fluid overload and acute CHF, check troponin. Cardiology consult. Continue with Lasix while monitoring electrolytes, weight and creatinine Labs and medication were reviewed.. Continue same treatment. Continue with symptomatic treatment. Resume home medication. Monitor lytes and vitals. DVT and GI prophylaxis. Further recommendations depends on the clinical course of the patient DVT prophylaxis: Subcutaneous heparin GI Prophylaxis: Pepcid PT/OT: Pending Prognosis is guarded
[2020-12-10 16:40] LABS: Glucose, BF Source Pleural Fluid; Glucose, Body Fluid 126 mg/dL; LDH, Body Fluid Source Pleural Fluid; Total Protein, Body Fluid 2300 mg/dL
[2020-12-10] MEDS: AMIODARONE 450 MG in DEXTROSE 5% IN WATER 250 ML IV SCH ×2 (18:51)
--- NOTE | 2020-12-10 19:39 | PCN ---
PROCEDURE NOTE PROCEDURE: Right thoracentesis. PREOPERATIVE DIAGNOSIS: Right pleural effusion. POSTOP DIAGNOSIS: Right pleural effusion. OPERATORS: Dr. Lagunas and Dr. Guillermo. PROCEDURE IN DETAIL: There was informed consent and universal timeout. The posterior right chest was marked by ultrasound. Indication Pleural effusion. A time-out was completed verifying correct patient, procedure, site, positioning , and implant (s) or special equipment if applicable. Ultrasound guidance was used and appropriate fluid pocket was identified and marked. Patient was positioned, prepped and draped in usual sterile fashion. Lidocaine was used to anesthetize the area. A Thoracentesis catheter was introduced into the pleural space and fluid was removed. Blood loss was none. A chest x-ray was ordered to evaluate for pneumothorax. Total Fluid Removed: Roughly 2 liters of yellow fluid was removed from the right pleural space. Color of Fluid: Yellow. Fluid was sent for appropriate laboratory tests including cytology, microbiology and chemistry. Patient tolerated the procedure well and there were no complications. He did cough a bit toward the end. A chest x-ray was ordered to rule out pneumothorax. No additional recommendations. MMODL / IJN: [id number] /
[2020-12-10] MEDS: SODIUM CHLORIDE 0.9% 1,000 ML IV SCH (19:58)
[2020-12-11] MEDS: FUROSEMIDE 10 MG/ML 4 ML VIAL IV SCH ×2 (00:10→22:37)
[2020-12-11] MEDS: EZETIMIBE 10 MG TAB PO SCH (04:05)
[2020-12-11] MEDS: ATORVASTATIN 80 MG TAB PO SCH (04:05)
[2020-12-11] MEDS: SODIUM CHLORIDE 0.9% 1,000 ML IV SCH (04:06)
[2020-12-11 07:53] LABS: Calcium 8.6 mg/dL (8.4-10.2); Magnesium 1.8 mg/dL (1.6-2.3); Potassium 3.6 mmol/L (3.5-5.1)
--- NOTE | 2020-12-11 10:52 | P.PN ---
Subjective Progress Note Date: 12/11/20 This is a very pleasant 80-year-old gentleman who has a history of coronary artery disease, hypertension, hyperlipidemia, congestive heart failure. He presented to the emergency room on 12/07/2020 after developing increasing shortness of breath and increased swelling of the lower extremities with a 15 p ound weight gain. His x-ray revealed a moderate right-sided pleural effusion. Echocardiogram revealed severe rectal impaired left ventricular systolic function with ejection fraction of 20-25%. Ultrasound of the right chest revealed a 16 cm pocket. He is seen today in consultation on the selective care unit. He is currently sitting up in the bedside. Awake and alert in no acute distress. He states his shortness of breath has been progressing over the past 1-2 months. Continues to maintain O2 saturations in the 90s on room air. He's been afebrile. Hemodynamically stable. Sodium 137. Potassium 3.5. Creatinine 1.17. Dr. Lagunas did go ahead and perform a right-sided thoracentesis today. 2 L of turbulent yellow fluid was removed. Fluid analysis and cytology pending. Follow-up chest x-ray reviewed reveals near complete resolution of the effusion. No pneumothorax. On 12/11/2020 the patient is being seen in follow-up regarding decompensated heart failure. The patient also had a large right-sided pleural effusion secondary to above and the patient underwent thoracentesis on 12/10/2020 with a total of 2 L of fluid was removed. The patient noted severe ischemic cardiomyop athy with an ejection fraction of 20-25%. Other comorbid conditions include COPD, hypertension, hyperlipidemia and the patient is postsplenectomy. The patient's pleural fluid analysis is consistent with transudate. There is also consistent with CHF. Meanwhile, the patient remains on Lasix 40 mg every 8 hours. The renal function is stable. The patient is producing adequate amount of urine output. The patient has been at least 4 L negative over the past 24 hours and he remains to be a negative fluid balance. Weight is down by at least 3-4 kg. the patient is having episodes of nonsustained VT and current rhythm is sinus Objective - Vital Signs Vital signs: Vital Signs Temp 97 F L 12/11/20 08:20 Pulse 65 12/11/20 09:45 Resp 16 12/11/20 09:45 BP 93/51 12/11/20 09:45 Pulse Ox 98 12/11/20 09:45 Intake & Output 12/10/20 12/11/20 12/11/20 18:59 06:59 18:59 Intake Total 1680 480 Output Total 900 2150 325 Balance 780 -2150 155 Weight 81.8 kg Intake: Oral 1680 480 Output: Urine 900 2150 325 Other: Voiding Method Toilet Toilet Toilet Urinal Urinal Urinal # Voids 1 - Exam GENERAL EXAM: Alert, very pleasant 80-year-old gentleman, on room air, comfortable in no apparent distress. HEAD: Normocephalic. EYES: Normal reaction of pupils, equal size. NOSE: Clear with pink turbinates. THROAT: No erythema or exudates. NECK: No masses, no JVD. CHEST: No chest wall deformity. LUNGS: Equal air entry with crackles in the right base, dullness, diminished. CVS: S1 and S2 normal with no audible murmur, regular rhythm. ABDOMEN: No hepatosplenomegaly, normal bowel sounds, no guarding or rigidity. SPINE: No scoliosis or deformity SKIN: No rashes CENTRAL NERVOUS SYSTEM: No focal deficits, tone is normal in all 4 extremities. EXTREMITIES: There is no peripheral edema. No clubbing, no cyanosis. Peripheral pulses are intact. - Labs CBC & Chem 7: 12/07/20 13:49 12/11/20 07:12 Labs: Abnormal Lab Results - Last 24 Hours (Table) 12/11/20 Range/Units 07:12 Carbon Dioxide 33 H (22-30) mmol/L Glucose 119 H (74-99) mg/dL Microbiology - Last 24 Hours (Table) 12/10/20 12:00 Gram Stain - Preliminary Pleural Fluid Body Fluid Culture - Preliminary 12/10/20 12:00 Fungal Culture - Preliminary Pleural Fluid 12/10/20 12:00 Acid Fast Bacilli Culture - Preliminary Pleural Fluid Assessment and Plan Plan: 1 Acute exacerbation of systolic congestive heart failure, and the patient is currently doing well post thoracentesis and the patient is also being diuresis with IV Lasix and the patient remains in negative fluid balance losing weight as the patient producing adequate amount of urine output 2 Large right-sided pleural effusion secondary to above, status post thoracentesis on 12/10/2020 2 L removed without any complication the pleural f luid is a transudate, and the patient remains on Lasix 3 Severe ischemic cardiomyopathy with ejection fraction 20-25% 4 History of coronary disease 5 Hypertension 6 Hyperlipidemia 7 History of splenectomy 8 History of liver laceration with repair 9 nonsustained VT Plan: The patient will be having a cardiac catheterization tomorrow Continue diuretics, Lasix dose is being tapered as the patient is running a lower borderline blood pressure pleural fluid is a transudate consistent with CHF We will continue to follow and make further recommendations based on his clinical status
[2020-12-11] MEDS: AMIODARONE 450 MG in DEXTROSE 5% IN WATER 250 ML IV SCH ×2 (11:39)
[2020-12-11] MEDS: AMIODARONE 200 MG TAB PO SCH ×2 (11:39→21:06)
[2020-12-11] MEDS: FAMOTIDINE 20 MG TAB PO SCH ×2 (11:39→21:06)
[2020-12-11] MEDS: HEPARIN SODIUM,PORCINE 5,000 UNIT/ML 1 ML VIAL SQ SCH ×2 (11:39→21:07)
[2020-12-11] MEDS: FUROSEMIDE 40 MG TAB PO SCH ×2 (11:39→16:42)
[2020-12-11] MEDS ORDERED: ALPRAZolam 0.5 MG TAB PO PRN (12:54)
[2020-12-11] MEDS ORDERED: ALPRAZolam 0.25 MG TAB PO PRN (12:54)
--- NOTE | 2020-12-11 13:09 | P.PN ---
Subjective Patient seen and examined sitting up in the recliner in no acute distress. He states overall he feels like his breathing is improving. He continues to have lower extremity edema that he states is better since he came into the hospital as well. He denies any symptoms of chest discomfort. He states his orthopnea has improved since admission. Blood pressure 97/61 heart rate 72 afebrile maintaining oxygen saturation on room air. Laboratory data reviewed, sodium 138, potassium 3.6, creatinine 1.08 and magnesium 1.8. Currently maintained on amiodarone infusion, atorvastatin 80 mg daily, coreg 1.563 mg BID, zetia 10 mg daily, lasix 40 mg IV TID and lisinopril 2.5 mg daily. However, lisinopril and coreg have been held due to hypotension. He has had no further VT since yesterday afternoon. GENERAL: Well-appearing, well-nourished and in no acute distress. NECK: Supple without JVD or thyromegaly. LUNGS: Breath sounds clear to auscultation bilaterally. Respiration equal and unlabored. No wheezes, rales or rhonchi. Diminished bilaterally. HEART: Regular rate and rhythm without murmurs, rubs or gallops. S1 and S2 heard. EXTREMITIES: Normal range of motion, bilateral lower extremity 1+ pitting edema. No clubbing or cyanosis. Peripheral pulses intact. ASSESSMENT Acute systolic heart failure Pleural effusion Non-sustained ventricular tachycardia Hypokalemia Hypomagnesemia Coronary artery disease s/p LA 2006 with medical management recommended Hypertension history with hypotension since admission Dyslipidemia PLAN Transition to oral amiodarone and lasix. Recommend cardiac catheterization tomorrow to assess for worsening disease. Discussed with him the need for LifeVest placement vs ICD implantation. Follow renal function and electrolytes in the morning. Further recommendations to follow based on clinical course. Nurse Practitioner note has been reviewed, I agree with a documented findings and plan of care. Patient was seen and examined. Objective - Vital Signs Vital signs: Vital Signs Temp 97 F L 12/11/20 08:20 Pulse 72 12/11/20 11:19 Resp 16 12/11/20 11:19 BP 97/61 12/11/20 11:19 Pulse Ox 95 12/11/20 11:19 Intake & Output 12/10/20 12/11/20 12/11/20 18:59 06:59 18:59 Intake Total 1680 730 Output Total 900 2150 325 Balance 780 -2150 405 Weight 81.8 kg Intake: Intake, IV Titration 250 Amount Amiodarone 450 mg In 250 Dextrose 5% in Water 250 ml @ 0.5 MG/MIN 16.667 mls/hr IV .Q15H [facility] Rx#: [id number] Oral 1680 480 Output: Urine 900 2150 325 Other: Voiding Method Toilet Toilet Toilet Urinal Urinal Urinal # Voids 1 - Labs CBC & Chem 7: 12/07/20 13:49 12/11/20 07:12 Labs: Abnormal Lab Results - Last 24 Hours (Table) 12/11/20 Range/Units 07:12 Carbon Dioxide 33 H (22-30) mmol/L Glucose 119 H (74-99) mg/dL Microbiology - Last 24 Hours (Table) 12/10/20 12:00 Gram Stain - Preliminary Pleural Fluid Body Fluid Culture - Preliminary 12/10/20 12:00 Fungal Culture - Preliminary Pleural Fluid 12/10/20 12:00 Acid Fast Bacilli Culture - Preliminary Pleural Fluid
[2020-12-11] MEDS: POTASSIUM CHLORIDE ER 20 MEQ TAB.ER PO SCH (16:42)
[2020-12-11] MEDS ORDERED: AMIODARONE 200 MG TAB PO SCH (21:00)
--- NOTE | 2020-12-11 23:08 | P.PN ---
Subjective Progress Note Date: 12/11/20 Principal diagnosis: Acute exacerbation systolic CHF Dyspnea/right-sided pleural effusion 80 years old male with past medical history of heart failure. [facility] is [facility] for bilateral leg swelling and the pleural effusion. Also he has dyspnea especially with exertion. Patient states she had dyspnea with less than 3 weeks. Also noticed increase in his weight by 15 pounds 175 up to 190 pounds in the last 3 weeks, his dyspnea started getting worse over the last 2 weeks. But no chest pain no coughing or phlegm. He had little heart burn and this middle of his chest especially on walking which feels better now He denies chest pain. No change in urine or bowel habits. No fever. No nausea vomiting. He denies smoking, alcohol or illicit drugs He went to see his bull fiddle player Dr. Cary, and his nurse practitioner evaluated him, he got a shot of Lasix and send him home but he did not take his prescription of oral Lasix and came back next day to see Dr. Cary per his recommendation, echocardiogram showed ejection fraction less than 20%, so he was sent to the hospital for fluid overload Vitas looks stable Labs including CBC, INR, BMP and liver enzymes are unremarkable, troponin is less than 0.012. ProBNP [place] elevated 87719. EKG showing sinus bradycardia at [address]-T changes and a few PVC. QTC is 434. Chest x-ray: Direct right pleural effusion In the emergency room he was started on Lasix 20 mg twice daily. 12/09/2020 Patient is seen and evaluated in room at bedside; denies any complaint of chest pain; patient does report improvement in breathing; reports improvement in lower extremity edema Vital signs are reviewed which reveal softer blood pressure; patient did receive antihypertensive medications in form of lisinopril and atenolol this morning Echocardiogram is completed revealing an ejection fraction of 20-25%, mild mitral regurgitation, mild tricuspid regurgitation, mild pulmonary hypertension and moderate pleural effusion Cardiology recommending to discontinue atenolol at this time due to hypotension but plans to decrease lisinopril; patient has been started on slow IV fluid hydration with normal saline at a rate of 50 mL an hour Pulmonary service is consulted for possible right thoracentesis 12/10/2020 Patient is seen and evaluated sitting comfortably in bed; patient is status post thoracocentesis Large right-sided pleural effusion with patient status post thoracentesis, with removal of 2 L of turbulent yellow fluid which is sent for cytology; post thoracentesis chest x-rays reviewed which reveals near complete resolution of effusion with no pneumothorax; patient remains on diuretic therapy Vital signs are reviewed and remained stable; patient was hypotensive earlier in the day with cardiology decreasing atenolol and patient is started on slow IV fluid hydration with normal saline at rate of 50 mL an hour; patient is restarted on Coreg at 1.563 mg twice a day; cardiology recommending to continue with current dose of lisinopril Echocardiogram reveals an EF of 20-25% which was previously 40-45%; patient is started on IV amiodarone bolus and infusion; patient will require LifeVest versus ICD implantation due to severe cardiomyopathy 12/11/2020 patient is currently sitting in the chair comfortably. Breathing status is improving but patient is still having bilateral lower extremity edema. Currently being continued on Lasix 40 mg IV 3 times daily and also on amiodarone infusion. Patient did have nonsustained ventricular tachycardia. Patient continues to be hypotensive with a blood pressure 97/61 and heart rate 72 today. Patient denied any complaints of fever or chills. No cough or sputum production. Cardiology is planning for cardiac catheterization today. Laboratory showed potassium 3.6 BUN 20 and creatinine 1.08 patient is status post right thoracentesis. Cardiology and pulmonary is on board. Current medications reviewed. Objective - Vital Signs Vital signs: Vital Signs Temp 97 F L 12/11/20 08:20 Pulse 72 12/11/20 11:19 Resp 16 12/11/20 11:19 BP 97/61 12/11/20 11:19 Pulse Ox 95 12/11/20 11:19 Intake & Output 12/10/20 12/11/20 12/11/20 18:59 06:59 18:59 Intake Total 1680 970 Output Total 900 2150 325 Balance 780 -2150 645 Weight 81.8 kg Intake: Intake, IV Titration 250 Amount Amiodarone 450 mg In 250 Dextrose 5% in Water 250 ml @ 0.5 MG/MIN 16.667 mls/hr IV .Q15H [facility] Rx#: [id number] Oral 1680 720 Output: Urine 900 2150 325 Other: Voiding Method Toilet Toilet Toilet Urinal Urinal Urinal # Voids 1 - Exam - Exam GENERAL: The patient is alert and oriented x3, not in any acute distress. Well developed, well nourished. HEENT: Pupils are round and equally reacting to light. EOMI. No scleral icterus. No conjunctival pallor. Normocephalic, atraumatic. No pharyngeal erythema. No thyromegaly. CARDIOVASCULAR: S1 and S2 present. No murmurs, rubs, or gallops. -PULMONARY: Chest is clear to auscultation, no wheezing or crackles. Basal crepitation. Decreased breath sounds on the right basal site ABDOMEN: Soft, nontender, nondistended, normoactive bowel sounds. No palpable organomegaly. MUSCULOSKELETAL: No joint swelling or deformity. -EXTREMITIES: No cyanosis, clubbing,2+ bilateral pitting leg edema. NEUROLOGICAL: Gross neurological examination did not reveal any focal deficits. SKIN: No rashes. No petechiae - Labs CBC & Chem 7: 12/07/20 13:49 12/11/20 07:12 Labs: Abnormal Lab Results - Last 24 Hours (Table) 12/11/20 Range/Units 07:12 Carbon Dioxide 33 H (22-30) mmol/L Glucose 119 H (74-99) mg/dL Microbiology - Last 24 Hours (Table) 12/10/20 12:00 Gram Stain - Preliminary Pleural Fluid Body Fluid Culture - Preliminary 12/10/20 12:00 Fungal Culture - Preliminary Pleural Fluid 12/10/20 12:00 Acid Fast Bacilli Culture - Preliminary Pleural Fluid Assessment and Plan Assessment: Acute systolic CHF exacerbation,ejection fraction 20%-25% moderate right pleural effusion s/p thoracentesis Hypertension Hyperlipidemia Nonsustained ventricular tachycardia. Hypokalemia and hypomagnesemia history of hypertension. Currently patient is hypotensive hyperlipidemia DVT prophylaxis patient is on heparin drip. Plan: Patient will be continued on the amiodarone drip and IV Lasix. Continued on heparin drip and cardiology is planning for catheterization tomorrow. Follow-up renal function. Cardiology is on board and further recommendations based on the clinical course. Prognosis guarded at this time. Time with Patient: Greater than 30
[2020-12-11] MEDS ORDERED: SODIUM CHLORIDE 0.9% 1,000 ML in EMPTY BAG 1 BAG IV ONE (23:59)
[2020-12-12] MEDS: SODIUM CHLORIDE 0.9% 1,000 ML IV SCH (04:31)
[2020-12-12] MEDS: EZETIMIBE 10 MG TAB PO SCH (04:31)
[2020-12-12] MEDS: ATORVASTATIN 80 MG TAB PO SCH (04:31)
[2020-12-12] MEDS ORDERED: ASPIRIN 325 MG TAB PO ONE (06:00)
[2020-12-12] MEDS ORDERED: HEPARIN SODIUM,PORCINE 2,500 UNIT in SODIUM CHLORIDE 0.9% 250 ML IRRIGATION PRN (07:00)
[2020-12-12] MEDS ORDERED: HEPARIN SODIUM,PORCINE 10,000 UNIT in SODIUM CHLORIDE 0.9% 1,000 ML IRRIGATION PRN (07:00)
[2020-12-12 08:09] LABS: Calcium 8.6 mg/dL (8.4-10.2); Potassium 3.7 mmol/L (3.5-5.1)
[2020-12-12] MEDS: HEPARIN SODIUM,PORCINE 5,000 UNIT/ML 1 ML VIAL SQ SCH ×2 (09:17→20:08)
[2020-12-12] MEDS: FAMOTIDINE 20 MG TAB PO SCH ×2 (09:40→20:08)
[2020-12-12] MEDS: POTASSIUM CHLORIDE ER 20 MEQ TAB.ER PO SCH (09:40)
[2020-12-12] MEDS: AMIODARONE 200 MG TAB PO SCH ×2 (09:41→20:08)
[2020-12-12] MEDS: FUROSEMIDE 40 MG TAB PO SCH ×2 (09:41→17:22)
--- NOTE | 2020-12-12 11:12 | P.PN ---
Subjective Progress Note Date: 12/12/20 This is a very pleasant 80-year-old gentleman who has a history of coronary artery disease, hypertension, hyperlipidemia, congestive heart failure. He presented to the emergency room on 12/07/2020 after developing increasing shortness of breath and increased swelling of the lower extremities with a 15 p ound weight gain. His x-ray revealed a moderate right-sided pleural effusion. Echocardiogram revealed severe rectal impaired left ventricular systolic function with ejection fraction of 20-25%. Ultrasound of the right chest revealed a 16 cm pocket. He is seen today in consultation on the selective care unit. He is currently sitting up in the bedside. Awake and alert in no acute distress. He states his shortness of breath has been progressing over the past 1-2 months. Continues to maintain O2 saturations in the 90s on room air. He's been afebrile. Hemodynamically stable. Sodium 137. Potassium 3.5. Creatinine 1.17. Dr. Lagunas did go ahead and perform a right-sided thoracentesis today. 2 L of turbulent yellow fluid was removed. Fluid analysis and cytology pending. Follow-up chest x-ray reviewed reveals near complete resolution of the effusion. No pneumothorax. On 12/11/2020 the patient is being seen in follow-up regarding decompensated heart failure. The patient also had a large right-sided pleural effusion secondary to above and the patient underwent thoracentesis on 12/10/2020 with a total of 2 L of fluid was removed. The patient noted severe ischemic cardiomyop athy with an ejection fraction of 20-25%. Other comorbid conditions include COPD, hypertension, hyperlipidemia and the patient is postsplenectomy. The patient's pleural fluid analysis is consistent with transudate. There is also consistent with CHF. Meanwhile, the patient remains on Lasix 40 mg every 8 hours. The renal function is stable. The patient is producing adequate amount of urine output. The patient has been at least 4 L negative over the past 24 hours and he remains to be a negative fluid balance. Weight is down by at least 3-4 kg. the patient is having episodes of nonsustained VT and current rhythm is sinus On 12/12/2020, the patient is being seen for a follow-up. As mentioned earlier the patient has severe ischemic cardiomyopathy with an ejection fraction of 20- 25% and the patient was diuresed and the pleural fluid was removed which do not to be transudate. Pulse ox 98% on room air oxygen. The patient is a negative fluid balance. Currently he is on Lasix orally 40 mg by mouth twice a day. . Patient is going to undergo a cardiac catheterization today.. He continues to have some swelling in lower extremities bilaterally. No cardiac arrhythmias. He was having some non-sustained VT, currently in sinus rhythm. Objective - Vital Signs Vital signs: Vital Signs Temp 97.0 F L 12/12/20 08:00 Pulse 75 12/12/20 08:00 Resp 18 12/12/20 08:00 BP 95/55 12/12/20 08:00 Pulse Ox 98 12/12/20 08:00 Intake & Output 12/11/20 12/12/20 12/12/20 18:59 06:59 18:59 Intake Total 1150 Output Total 325 1130 Balance 825 -1130 Weight 81 kg Intake: Intake, IV Titration 250 Amount Amiodarone 450 mg In 250 Dextrose 5% in Water 250 ml @ 0.5 MG/MIN 16.667 mls/hr IV .Q15H [facility] Rx#: [id number] Oral 900 Output: Urine 325 1130 Other: Voiding Method Toilet Toilet Urinal Urinal # Voids 2 1 - Exam GENERAL EXAM: Alert, very pleasant 80-year-old gentleman, on room air, comfortable in no apparent distress. HEAD: Normocephalic. EYES: Normal reaction of pupils, equal size. NOSE: Clear with pink turbinates. THROAT: No erythema or exudates. NECK: No masses, no JVD. CHEST: No chest wall deformity. LUNGS: Equal air entry with crackles in the right base, dullness, diminished. CVS: S1 and S2 normal with no audible murmur, regular rhythm. ABDOMEN: No hepatosplenomegaly, normal bowel sounds, no guarding or rigidity. SPINE: No scoliosis or deformity SKIN: No rashes CENTRAL NERVOUS SYSTEM: No focal deficits, tone is normal in all 4 extremities. EXTREMITIES: There is no peripheral edema. No clubbing, no cyanosis. Peripheral pulses are intact. - Labs CBC & Chem 7: 12/07/20 13:49 12/12/20 07:09 Labs: Abnormal Lab Results - Last 24 Hours (Table) 12/12/20 Range/Units 07:09 Carbon Dioxide 32 H (22-30) mmol/L Glucose 113 H (74-99) mg/dL Microbiology - Last 24 Hours (Table) 12/10/20 12:00 Acid Fast Bacilli Smear - Final Pleural Fluid Acid Fast Bacilli Culture - Preliminary 12/10/20 12:00 Gram Stain - Preliminary Pleural Fluid Body Fluid Culture - Preliminary Assessment and Plan Plan: 1 Acute exacerbation of systolic congestive heart failure, and the patient is currently doing well post thoracentesis and the patient is also being diuresis with IV Lasix and the patient remains in negative fluid balance losing weight as the patient producing adequate amount of urine output, the patient was switched to oral Lasix. The patient is undergoing a cardiac catheterization today by Dr. Cary. 2 Large right-sided pleural effusion secondary to above, status post thoracen tesis on 12/10/2020 2 L removed without any complication the pleural fluid is a transudate, and the patient remains on Lasix 3 Severe ischemic cardiomyopathy with ejection fraction 20-25% 4 History of coronary disease 5 Hypertension 6 Hyperlipidemia 7 History of splenectomy 8 History of liver laceration with repair 9 nonsustained VT Plan: The patient having a cardiac catheterization today Continue diuretics, Lasix has been switched to oral. Continue Coreg pleural fluid is a transudate consistent with CHF We will continue to follow and make further recommendations based on his clin ical status
[2020-12-12] MEDS ORDERED: HEPARIN SODIUM 1,000 UN/ML (10ML VL) ONE (11:23)
[2020-12-12] MEDS ORDERED: fentaNYL (PF) 50 MCG/ML 2 ML AMP ONE (11:23)
[2020-12-12] MEDS ORDERED: VERAPAMIL 2.5 MG/ML 2 ML AMP ONE (11:23)
[2020-12-12] MEDS ORDERED: LIDOCAINE 1% INJ 10MG/ML (20 ML MDV) ONE (11:23)
[2020-12-12] MEDS ORDERED: IV FLUID CONTINUATION 1,000 ML IV ONE (11:37)
[2020-12-12 11:40] VITALS: BMI 24.2
[2020-12-12] MEDS ORDERED: fentaNYL (PF) 50 MCG/ML 2 ML AMP IV ONE (12:22)
[2020-12-12] MEDS ORDERED: LIDOCAINE 1% INJ 10MG/ML (20 ML MDV) SQ ONE (12:23)
--- NOTE | 2020-12-12 12:26 | P.PN ---
Subjective Patient seen and examined sitting up in the recliner in no acute distress. He states overall he feels like his breathing is improving. He continues to have lower extremity edema that he states is better since he came into the hospital as well. He denies any symptoms of chest discomfort. He states his orthopnea has improved since admission. Blood pressure 97/61 heart rate 72 afebrile maintaining oxygen saturation on room air. Laboratory data reviewed, sodium 138, potassium 3.6, creatinine 1.08 and magnesium 1.8. Currently maintained on amiodarone infusion, atorvastatin 80 mg daily, coreg 1.563 mg BID, zetia 10 mg daily, lasix 40 mg IV TID and lisinopril 2.5 mg daily. However, lisinopril and coreg have been held due to hypotension. He has had no further VT since yesterday afternoon. 12/12/2020 Patient seen and examined up ambulating in the halls with physical therapy. Overall his breathing has stabilized since admission. He denies symptoms of chest discomfort. His lower extremity edema has improved. Blood pressure 95/55 heart rate 75 afebrile maintaining oxygen saturation on room air. Laboratory data reviewed, sodium 138, potassium 3.7, creatinine 1.05. He has had no further episodes of ventricular tachycardia since being started on amiodarone. GENERAL: Well-appearing, well-nourished and in no acute distress. NECK: Supple without JVD or thyromegaly. LUNGS: Breath sounds clear to auscultation bilaterally. Respiration equal and unlabored. No wheezes, rales or rhonchi. Diminished bilaterally. HEART: Regular rate and rhythm without murmurs, rubs or gallops. S1 and S2 heard. EXTREMITIES: Normal range of motion, bilateral lower extremity 1+ pitting edema. No clubbing or cyanosis. Peripheral pulses intact. ASSESSMENT Acute systolic heart failure Pleural effusion Non-sustained ventricular tachycardia Hypokalemia Hypomagnesemia Coronary artery disease s/p [place] 2006 with medical management recommended Hypertension history with hypotension since admission Dyslipidemia PLAN He is scheduled to undergo cardiac catheterization today. Further recommendations to follow based on cardiac catheterization findings. Patient will require LifeVest or ICD implantation prior to discharge. Nurse Practitioner note has been reviewed, I agree with a documented findings and plan of care. Patient was seen and examined. Objective - Vital Signs Vital signs: Vital Signs Temp 97.0 F L 12/12/20 08:00 Pulse 75 12/12/20 08:00 Resp 18 12/12/20 08:00 BP 95/55 12/12/20 08:00 Pulse Ox 98 12/12/20 08:00 Intake & Output 12/11/20 12/12/20 12/12/20 18:59 06:59 18:59 Intake Total 1150 Output Total 325 1130 Balance 825 -1130 Weight 81 kg 81 kg Intake: Intake, IV Titration 250 Amount Amiodarone 450 mg In 250 Dextrose 5% in Water 250 ml @ 0.5 MG/MIN 16.667 mls/hr IV .Q15H [facility] Rx#: [id number] Oral 900 Output: Urine 325 1130 Other: Voiding Method Toilet Toilet Urinal Urinal # Voids 2 1 - Labs CBC & Chem 7: 12/07/20 13:49 12/12/20 07:09 Labs: Abnormal Lab Results - Last 24 Hours (Table) 12/12/20 Range/Units 07:09 Carbon Dioxide 32 H (22-30) mmol/L Glucose 113 H (74-99) mg/dL Microbiology - Last 24 Hours (Table) 12/10/20 12:00 Acid Fast Bacilli Smear - Final Pleural Fluid Acid Fast Bacilli Culture - Preliminary
[2020-12-12] MEDS ORDERED: VERAPAMIL SYRINGE (5 MG/10 ML) INTRAARTER ONE (12:27)
[2020-12-12] MEDS ORDERED: HEPARIN SODIUM 1,000 UN/ML (10ML VL) IV ONE (12:44)
[2020-12-12 12:47] LABS: O2 Sat Blood Gas 95.3 %
[2020-12-12 12:49] LABS: O2 Sat Blood Gas 63.6 %
[2020-12-12] MEDS ORDERED: IOPAMIDOL-370 125ML BTL INJ ONE (12:52)
[2020-12-12 12:53] LABS: O2 Sat Blood Gas 65.9 %
[2020-12-12] MEDS ORDERED: RX INFO: IV CONTRAST WAS GIVEN 1 EACH MISC MISCELLANE PRN (13:06)
[2020-12-12] MEDS ORDERED: SODIUM CHLORIDE 0.9% 1,000 ML IV SCH (13:15)
--- NOTE | 2020-12-12 14:07 | CC ---
CARDIAC CATHETERIZATION REPORT Mr. Hines is a 80-year-old male with known history of coronary artery disease who presented with symptoms of worsening dyspnea and congestive heart failure with evidence of severe cardiomyopathy and runs of nonsustained ventricular tachycardia. In view of that, recommendation was made regarding cardiac catheterization. The procedure as well as the risks and the complications were discussed with the patient who is in full understanding and agreement. PROCEDURE: Patient was brought to the label machine operator in a fasting semi-sedated state after receiving fentanyl and Benadryl and achieving moderate conscious sedated state. Using Xylocaine anesthesia and Seldinger technique, a 6-Cypriot sheath was introduced in the right radial artery. Subsequently, the intravenous sheath in the right basilic vein was exchanged to a 6-Cypriot sheath. Right heart catheterization was performed using [place]- Robin catheter. Multiple samples were obtained. Cardiac output by thermodilution was calculated. Following that, a selective right and left coronary angiography was performed using 5-Cypriot 3.5 bend right and left Emanuel catheter. Multiple views of the coronary artery including hemiaxial views were obtained. Following that 5-Cypriot tight pigtail catheter introduced into the left ventricle and a 30-degree SILVERMAN view of the left ventricle was obtained. Following that, catheter and sheath were removed. Hemostasis was obtained with deployment of a TR band and compression of the right brachial area. There was no immediate complication. Patient was returned to his room in stable condition. Of note, the patient received a total of 4500 units of intravenous heparin as well as intra-arterial verapamil. There was no immediate complication. FINDINGS: HEMODYNAMICS: Cardiac output by thermodilution 5.2 L/minute and by [place] 5.7 L/minute. Pulmonary artery systolic pressure of 45 with a diastolic of 14 and a mean of 24 mmHg. Pulmonary capillary wedge pressure A-wave of 16, V-wave 28 with a mean of 14 mmHg. Right ventricle systolic pressure of 45 with an end-diastolic of 8. Right atrium A-wave of 8, V-wave of 8 with a mean of 5 mmHg. Left ventricular end-diastolic pressure is 16- 20 mmHg. There was no gradient across the aortic valve. Right atrial saturation 64%. Pulmonary artery saturation 66%, arterial saturation 95%. FLUOROSCOPY: There was significant calcification involving all the coronary arteries. LEFT MAIN: This is a large-sized vessel, bifurcating into left circumflex, left anterior descending artery. Left main coronary artery has no evidence of high-grade stenosis. LEFT ANTERIOR DESCENDING ARTERY: This is a large-size vessel reaching to the apex with a wraparound apex segment giving rise to 2 diagonal branches of moderate caliber. The left anterior descending artery is diffusely calcified, has intimal disease with area stenosis up to 50% in the proximal and mid segment without any evidence of high-grade stenosis. There is diffuse intimal disease in the diagonal branch. LEFT CIRCUMFLEX: This is a large nondominant vessel giving rise to 2 obtuse marginal branches. The second one is large in caliber. The left circumflex has intimal disease of 30% to 40% without any evidence of high-grade stenosis. RIGHT CORONARY ARTERY: This vessel is totally occluded proximally with no antegrade flow. COLLATERALS: There is good collaterals from the left coronary system toward the right PDA and PLV. LEFT VENTRICULOGRAM: Left ventriculogram is performed in 30-degree SILVERMAN view revealed an inferior wall akinesis with anterior apical hypokinesis. The estimated ejection fraction was 20% to 25%. There was 1+ mitral regurgitation. CONCLUSION: 1. Calcified coronary arteries. 2. Chronically occluded right coronary artery with moderate disease in the LAD and the left circumflex. 3. Collaterals from the left coronary system toward the RCA. 4. Mild pulmonary hypertension. RECOMMENDATION: In view of finding anatomy, I recommend to maximize his medical therapy and evaluate him for the possible need to undergo an ICD implantation down the road. Those findings and recommendation were discussed with the patient and his family and they are in full understanding and agreement. Duration of sedation is 35 minutes. MMODL / IJN: [id number] /
[2020-12-12] MEDS: carvediloL 3.125 MG TAB PO SCH (16:33)
[2020-12-13] MEDS: SODIUM CHLORIDE 0.9% 1,000 ML IV SCH (04:54)
[2020-12-13] MEDS: EZETIMIBE 10 MG TAB PO SCH (04:57)
[2020-12-13] MEDS: ATORVASTATIN 80 MG TAB PO SCH (04:57)
[2020-12-13] MEDS: carvediloL 3.125 MG TAB PO SCH ×2 (06:49→17:38)
[2020-12-13] MEDS: AMIODARONE 200 MG TAB PO SCH ×2 (09:12→20:54)
[2020-12-13] MEDS: FUROSEMIDE 40 MG TAB PO SCH ×2 (09:12→17:38)
[2020-12-13] MEDS: FAMOTIDINE 20 MG TAB PO SCH ×2 (09:12→20:54)
[2020-12-13] MEDS: ASPIRIN 81 MG PO SCH (09:12)
[2020-12-13] MEDS: HEPARIN SODIUM,PORCINE 5,000 UNIT/ML 1 ML VIAL SQ SCH ×2 (09:13→20:54)
[2020-12-13] MEDS: POTASSIUM CHLORIDE ER 20 MEQ TAB.ER PO SCH (09:13)
[2020-12-13 10:12] LABS: Calcium 8.6 mg/dL (8.4-10.2)
--- NOTE | 2020-12-13 10:24 | P.PN ---
Subjective Progress Note Date: 12/13/20 This is a very pleasant 80-year-old gentleman who has a history of coronary artery disease, hypertension, hyperlipidemia, congestive heart failure. He presented to the emergency room on 12/07/2020 after developing increasing shortness of breath and increased swelling of the lower extremities with a 15 p ound weight gain. His x-ray revealed a moderate right-sided pleural effusion. Echocardiogram revealed severe rectal impaired left ventricular systolic function with ejection fraction of 20-25%. Ultrasound of the right chest revealed a 16 cm pocket. He is seen today in consultation on the selective care unit. He is currently sitting up in the bedside. Awake and alert in no acute distress. He states his shortness of breath has been progressing over the past 1-2 months. Continues to maintain O2 saturations in the 90s on room air. He's been afebrile. Hemodynamically stable. Sodium 137. Potassium 3.5. Creatinine 1.17. Dr. Lagunas did go ahead and perform a right-sided thoracentesis today. 2 L of turbulent yellow fluid was removed. Fluid analysis and cytology pending. Follow-up chest x-ray reviewed reveals near complete resolution of the effusion. No pneumothorax. On 12/11/2020 the patient is being seen in follow-up regarding decompensated heart failure. The patient also had a large right-sided pleural effusion secondary to above and the patient underwent thoracentesis on 12/10/2020 with a total of 2 L of fluid was removed. The patient noted severe ischemic cardiomyop athy with an ejection fraction of 20-25%. Other comorbid conditions include COPD, hypertension, hyperlipidemia and the patient is postsplenectomy. The patient's pleural fluid analysis is consistent with transudate. There is also consistent with CHF. Meanwhile, the patient remains on Lasix 40 mg every 8 hours. The renal function is stable. The patient is producing adequate amount of urine output. The patient has been at least 4 L negative over the past 24 hours and he remains to be a negative fluid balance. Weight is down by at least 3-4 kg. the patient is having episodes of nonsustained VT and current rhythm is sinus On 12/12/2020, the patient is being seen for a follow-up. As mentioned earlier the patient has severe ischemic cardiomyopathy with an ejection fraction of 20- 25% and the patient was diuresed and the pleural fluid was removed which do not to be transudate. Pulse ox 98% on room air oxygen. The patient is a negative fluid balance. Currently he is on Lasix orally 40 mg by mouth twice a day. . Patient is going to undergo a cardiac catheterization today.. He continues to have some swelling in lower extremities bilaterally. No cardiac arrhythmias. He was having some non-sustained VT, currently in sinus rhythm. 12/13/2020, the patient is being seen in follow-up. The patient has advanced cardiomyopathy. We were involved in this case because of pleural effusion which was drained and the turn down attendant to be transudate. Cardiac catheterization was done today. The patient's calcified coronary arteries. He has a chronically occluded RCA with moderate disease in the LAD and the circumflex. Colitis. The patient is seen from the right. There is mild degree of pulmonary hypertension. In view of the anatomy, recommendation was medical treatment and possible need to insert an AICD at a later stage. No active pulmonary issues. Overall poor status is stable. The fluid balance is -300 mL over the past 24 hours at 200 mL since morning. Blood pressure today is running lower and the patient is on 94% on room air oxygen. Objective - Vital Signs Vital signs: Vital Signs Temp 97.9 F 12/13/20 08:00 Pulse 78 12/13/20 08:00 Resp 18 12/13/20 08:00 BP 102/55 12/13/20 08:00 Pulse Ox 94 L 12/13/20 08:00 Intake & Output 12/12/20 12/13/20 12/13/20 18:59 06:59 18:59 Intake Total 100 800 240 Output Total 1100 Balance 100 -300 240 Weight 81 kg Intake: IV 100 20 Invasive Line 3 20 Oral 780 240 Output: Urine 1100 Other: Voiding Method Toilet Urinal - Exam GENERAL EXAM: Alert, very pleasant 80-year-old gentleman, on room air, comfortable in no apparent distress. HEAD: Normocephalic. EYES: Normal reaction of pupils, equal size. NOSE: Clear with pink turbinates. THROAT: No erythema or exudates. NECK: No masses, no JVD. CHEST: No chest wall deformity. LUNGS: Equal air entry with crackles in the right base, dullness, diminished. CVS: S1 and S2 normal with no audible murmur, regular rhythm. ABDOMEN: No hepatosplenomegaly, normal bowel sounds, no guarding or rigidity. SPINE: No scoliosis or deformity SKIN: No rashes CENTRAL NERVOUS SYSTEM: No focal deficits, tone is normal in all 4 extremities. EXTREMITIES: There is no peripheral edema. No clubbing, no cyanosis. Peripheral pulses are intact. - Labs CBC & Chem 7: 12/07/20 13:49 12/13/20 09:15 Labs: Abnormal Lab Results - Last 24 Hours (Table) 12/13/20 Range/Units 09:15 Carbon Dioxide 33 H (22-30) mmol/L Glucose 174 H (74-99) mg/dL Microbiology - Last 24 Hours (Table) 12/10/20 12:00 Gram Stain - Preliminary Pleural Fluid Body Fluid Culture - Preliminary Assessment and Plan Plan: 1 Acute exacerbation of systolic congestive heart failure, and the patient is currently doing well post thoracentesis and the patient is also being diuresis with IV Lasix and the patient remains in negative fluid balance losing weight as the patient producing adequate amount of urine output, the patient was switched to oral Lasix. The patient is undergoing a cardiac catheterization today by Dr. Cary. 2 Large right-sided pleural effusion secondary to above, status post thoracentesis on 12/10/2020 2 L removed without any complication the pleural fluid is a transudate, and the patient remains on Lasix 3 Severe ischemic cardiomyopathy with ejection fraction 20-25% 4 History of coronary disease and the patient underwent a cardiac catheter ization and the cath was noted. Recommendation was medical treatment of possible AICD. 5 Hypertension 6 Hyperlipidemia 7 History of splenectomy 8 History of liver laceration with repair 9 nonsustained VT, possible AICD at a later stage 10. Phlebitis involving the left upper extremity, secondary to an IV line Plan: The cath report was noted. Continue medical treatment. AICD at a later stage. She may need a LifeVest at the time of discharge Continue diuretics, Lasix has been switched to oral. Continue Coreg pleural fluid is a transudate consistent with CHF Pulmonary critical care services will sign off the case.
[2020-12-13] MEDS: SPIRONOLACTONE 25 MG TAB PO SCH (11:11)
--- NOTE | 2020-12-13 12:08 | P.PN ---
Subjective Patient seen and examined sitting up in the recliner in no acute distress. He states overall he feels like his breathing is improving. He continues to have lower extremity edema that he states is better since he came into the hospital as well. He denies any symptoms of chest discomfort. He states his orthopnea has improved since admission. Blood pressure 97/61 heart rate 72 afebrile maintaining oxygen saturation on room air. Laboratory data reviewed, sodium 138, potassium 3.6, creatinine 1.08 and magnesium 1.8. Currently maintained on amiodarone infusion, atorvastatin 80 mg daily, coreg 1.563 mg BID, zetia 10 mg daily, lasix 40 mg IV TID and lisinopril 2.5 mg daily. However, lisinopril and coreg have been held due to hypotension. He has had no further VT since yesterday afternoon. 12/13/2020 Patient seen and examined sitting up in bed. He denies chest pain, shortness of breath, dizziness or palpitations. Telemetry tracings reviewed, no VT noted. He underwent cardiac catheterization yesterday with Dr. Cary revealing calcified arteries, chronically occluded RCA with moderate disease in the LAD and left circumflex with collaterals from the left system towards RCA and mild pulmonary hypertension. He also had 1+ mitral regurgitation. Blood pressure 102/55 heart rate 78 afebrile maintaining oxygen saturation on room air. Laboratory data reviewed, sodium 138, potassium 4.0, creatinine 1.09. His blood pressure has remained borderline low and his Coreg has been held by nursing staff. GENERAL: Well-appearing, well-nourished and in no acute distress. NECK: Supple without JVD or thyromegaly. LUNGS: Breath sounds clear to auscultation bilaterally. Respiration equal and unlabored. No wheezes, rales or rhonchi. Diminished bilaterally. HEART: Regular rate and rhythm without murmurs, rubs or gallops. S1 and S2 heard. EXTREMITIES: Normal range of motion, bilateral lower extremity 1+ pitting edema. No clubbing or cyanosis. Peripheral pulses intact. ASSESSMENT Acute systolic heart failure secondary to myocardial injury Pleural effusion Non-sustained ventricular tachycardia Hypokalemia Hypomagnesemia Coronary artery disease s/p [place] 2006 with medical management recommended Hypertension history with hypotension since admission Dyslipidemia PLAN He will require implantation of AICD at some point however he was noted to have an area of thrombophlebitis on his left forearm due to IV insertion. Due to the risk of infection at this time we recommend LifeVest placement prior to discharge to prevent sudden cardiac . Discontinue lisinopril secondary to hypotension and nurses have been instructed to give the Coreg as ordered. Add aldactone to his daily regimen. Nurse Practitioner note has been reviewed, I agree with a documented findings and plan of care. Patient was seen and examined. Objective - Vital Signs Vital signs: Vital Signs Temp 97.9 F 12/13/20 08:00 Pulse 78 12/13/20 08:00 Resp 18 12/13/20 08:00 BP 102/55 12/13/20 08:00 Pulse Ox 94 L 12/13/20 08:00 Intake & Output 12/12/20 12/13/20 12/13/20 18:59 06:59 18:59 Intake Total 100 800 240 Output Total 1100 Balance 100 -300 240 Weight 81 kg Intake: IV 100 20 Invasive Line 3 20 Oral 780 240 Output: Urine 1100 Other: Voiding Method Toilet Urinal - Labs CBC & Chem 7: 12/07/20 13:49 12/13/20 09:15 Labs: Abnormal Lab Results - Last 24 Hours (Table) 12/13/20 Range/Units 09:15 Carbon Dioxide 33 H (22-30) mmol/L Glucose 174 H (74-99) mg/dL Microbiology - Last 24 Hours (Table) 12/10/20 12:00 Gram Stain - Preliminary Pleural Fluid Body Fluid Culture - Preliminary
--- NOTE | 2020-12-13 12:27 | P.PN ---
Progress Note - Text Patient was admitted with worsening cardio myopathy, systolic with acute exacerbation of chronic CHF despite medical treatment He has a history of cardio myopathy, ischemic reduced LV systolic function He presented with frequent prolonged runs of fast ventricular tachycardia associated with presyncope and dizziness He was treated for his heart failure symptoms and IV followed by oral amiodarone was begun for suppression of very frequent prolonged runs of nonsustained fast VT Twelve-lead ECG shows sinus rhythm, mildly prolonged IL interval, left bundle branch block pattern, QRS fractionation in lead 2 and in the precordial leads V2-V6 especially in V5 and V6 consistent with slowed myocardial conduction secondary to scar Repeat 2-D echo showed further reduction in his LV systolic function to 20 have been 25% Once the patient stabilized, he underwent cardiac catheterization and angiography Left radical ejection fraction 20 have been 25% Inferior wall akinesis and anterior apical hypokinesis Chronically occluded RCA Left-sided collaterals towards the RCA Moderate disease in the LAD and left circumflex LVEDP 16-20 mmHg Right heart cath revealed AV of 16, V-wave of 22 mean of 14 RVSP 45 mmHg CVP of 5 Impression 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%, on guideline recommended treatment with a centimeters, Lasix, aspirin, atorvastatin and beta blockers New worsening of left ventricular ejection fraction on medical treatment Chronically occluded RCA with moderate disease in the left anterior descending and left circumflex Further worsening of LV systolic function with acute exacerbation of chronic heart failure Very fast recurrent nonsustained ventricular tachycardia requiring a ntiarrhythmic suppressive therapy Maximization of heart failure medications on this admission Left bundle branch block pattern with a QRS width of 140 ms, mildly prolonged IL interval I would recommend implantation of a biventricular ICD given his heart failure symptoms, the frequency and duration of fast nonsustained ventricular tachycardia but requires suppressive amiodarone therapy However the patient has a left arm thrombophlebitis which is red and inflamed We will start IV antibiotics today I will prescribe a LifeVest temporarily Once his , phlebitis results then we will proceed with a biventricular ICD implant
--- NOTE | 2020-12-13 22:39 | P.PN ---
Subjective Progress Note Date: 12/12/20 Principal diagnosis: Acute exacerbation systolic CHF Dyspnea/right-sided pleural effusion 80 years old male with past medical history of heart failure. [facility] is [facility] for bilateral leg swelling and the pleural effusion. Also he has dyspnea especially with exertion. Patient states she had dyspnea with less than 3 weeks. Also noticed increase in his weight by 15 pounds 175 up to 190 pounds in the last 3 weeks, his dyspnea started getting worse over the last 2 weeks. But no chest pain no coughing or phlegm. He had little heart burn and this middle of his chest especially on walking which feels better now He denies chest pain. No change in urine or bowel habits. No fever. No nausea vomiting. He denies smoking, alcohol or illicit drugs He went to see his university relations director Dr. Cary, and his nurse practitioner evaluated him, he got a shot of Lasix and send him home but he did not take his prescription of oral Lasix and came back next day to see Dr. Cary per his recommendation, echocardiogram showed ejection fraction less than 20%, so he was sent to the hospital for fluid overload Vitas looks stable Labs including CBC, INR, BMP and liver enzymes are unremarkable, troponin is less than 0.012. ProBNP [place] elevated 84912. EKG showing sinus bradycardia at [address]-T changes and a few PVC. QTC is 434. Chest x-ray: Direct right pleural effusion In the emergency room he was started on Lasix 20 mg twice daily. 12/09/2020 Patient is seen and evaluated in room at bedside; denies any complaint of chest pain; patient does report improvement in breathing; reports improvement in lower extremity edema Vital signs are reviewed which reveal softer blood pressure; patient did receive antihypertensive medications in form of lisinopril and atenolol this morning Echocardiogram is completed revealing an ejection fraction of 20-25%, mild mitral regurgitation, mild tricuspid regurgitation, mild pulmonary hypertension and moderate pleural effusion Cardiology recommending to discontinue atenolol at this time due to hypotension but plans to decrease lisinopril; patient has been started on slow IV fluid hydration with normal saline at a rate of 50 mL an hour Pulmonary service is consulted for possible right thoracentesis 12/10/2020 Patient is seen and evaluated sitting comfortably in bed; patient is status post thoracocentesis Large right-sided pleural effusion with patient status post thoracentesis, with removal of 2 L of turbulent yellow fluid which is sent for cytology; post thoracentesis chest x-rays reviewed which reveals near complete resolution of effusion with no pneumothorax; patient remains on diuretic therapy Vital signs are reviewed and remained stable; patient was hypotensive earlier in the day with cardiology decreasing atenolol and patient is started on slow IV fluid hydration with normal saline at rate of 50 mL an hour; patient is restarted on Coreg at 1.563 mg twice a day; cardiology recommending to continue with current dose of lisinopril Echocardiogram reveals an EF of 20-25% which was previously 40-45%; patient is started on IV amiodarone bolus and infusion; patient will require LifeVest versus ICD implantation due to severe cardiomyopathy 12/11/2020 patient is currently sitting in the chair comfortably. Breathing status is improving but patient is still having bilateral lower extremity edema. Currently being continued on Lasix 40 mg IV 3 times daily and also on amiodarone infusion. Patient did have nonsustained ventricular tachycardia. Patient continues to be hypotensive with a blood pressure 97/61 and heart rate 72 today. Patient denied any complaints of fever or chills. No cough or sputum production. Cardiology is planning for cardiac catheterization today. Laboratory showed potassium 3.6 BUN 20 and creatinine 1.08 patient is status post right thoracentesis. Cardiology and pulmonary is on board. 12/12/2020 Patient is currently resting in the chair comfortably. No complaints of chest pain or worsening shortness of. Patient is still having bilateral lower extremity edema and also blood pressure is on the lower side. Patient is being continued Lasix changed to by mouth. Patient is scheduled for cardiac catheterization today. Laboratory showed sodium 138, potassium 3.7, bicarbonate 32 BUN 20 and creatinine 1.05 Patient is being continued amiodarone, aspirin, statins and Coreg as blood pressure is tolerated. Current medications reviewed. Objective - Vital Signs Vital signs: Vital Signs Temp 97.0 F L 12/12/20 08:00 Pulse 75 12/12/20 08:00 Resp 18 12/12/20 13:42 BP 114/70 12/12/20 13:21 Pulse Ox 97 12/12/20 13:21 Intake & Output 12/11/20 12/12/20 12/12/20 18:59 06:59 18:59 Intake Total 1150 100 Output Total 325 1130 Balance 825 -1130 100 Weight 81 kg 81 kg Intake: IV 100 Intake, IV Titration 250 Amount Amiodarone 450 mg In 250 Dextrose 5% in Water 250 ml @ 0.5 MG/MIN 16.667 mls/hr IV .Q15H [facility] Rx#: [id number] Oral 900 Output: Urine 325 1130 Other: Voiding Method Toilet Toilet Urinal Urinal # Voids 2 1 - Exam - Exam GENERAL: The patient is alert and oriented x3, not in any acute distress. Well developed, well nourished. HEENT: Pupils are round and equally reacting to light. EOMI. No scleral icterus. No conjunctival pallor. Normocephalic, atraumatic. No pharyngeal erythema. No thyromegaly. CARDIOVASCULAR: S1 and S2 present. No murmurs, rubs, or gallops. -PULMONARY: Chest is clear to auscultation, no wheezing or crackles. Basal crepitation. Decreased breath sounds on the right basal site ABDOMEN: Soft, nontender, nondistended, normoactive bowel sounds. No palpable organomegaly. MUSCULOSKELETAL: No joint swelling or deformity. -EXTREMITIES: No cyanosis, clubbing,2+ bilateral pitting leg edema. NEUROLOGICAL: Gross neurological examination did not reveal any focal deficits. SKIN: No rashes. No petechiae - Labs CBC & Chem 7: 12/07/20 13:49 12/13/20 09:15 Labs: Abnormal Lab Results - Last 24 Hours (Table) 12/12/20 Range/Units 07:09 Carbon Dioxide 32 H (22-30) mmol/L Glucose 113 H (74-99) mg/dL Microbiology - Last 24 Hours (Table) 12/10/20 12:00 Gram Stain - Preliminary Pleural Fluid Body Fluid Culture - Preliminary 12/10/20 12:00 Acid Fast Bacilli Smear - Final Pleural Fluid Acid Fast Bacilli Culture - Preliminary Assessment and Plan Assessment: Acute systolic CHF exacerbation,ejection fraction 20%-25% moderate right pleural effusion s/p thoracentesis Hypertension Hyperlipidemia Nonsustained ventricular tachycardia. Hypokalemia and hypomagnesemia history of hypertension. Currently patient is hypotensive hyperlipidemia DVT prophylaxis patient is on heparin drip. Plan: Patient was on the amiodarone drip and IV Lasix. ahnaged to by mouth. cardiology is planning for catheterization today. Follow-up renal function. Cardiology is on board and further recommendations based on the clinical course. Prognosis guarded at this time. Time with Patient: Greater than 30
--- NOTE | 2020-12-13 22:52 | P.PN ---
Subjective Progress Note Date: 12/13/20 Principal diagnosis: Acute exacerbation systolic CHF Dyspnea/right-sided pleural effusion 80 years old male with past medical history of heart failure. He is [facility] for bilateral leg swelling and the pleural effusion. Also he has dyspnea especially with exertion. Patient states she had dyspnea with less than 3 weeks. Also noticed increase in his weight by 15 pounds 175 up to 190 pounds in the last 3 weeks, his dyspnea started getting worse over the last 2 weeks. But no chest pain no coughing or phlegm. He had little heart burn and this middle of his chest especially on walking which feels better now He denies chest pain. No change in urine or bowel habits. No fever. No nausea vomiting. He denies smoking, alcohol or illicit drugs He went to see his hat band attacher Dr. Cary, and his nurse practitioner evaluated him, he got a shot of Lasix and send him home but he did not take his prescription of oral Lasix and came back next day to see Dr. Cary per his recommendation, echocardiogram showed ejection fraction less than 20%, so he was sent to the hospital for fluid overload Vitas looks stable Labs including CBC, INR, BMP and liver enzymes are unremarkable, troponin is less than 0.012. ProBNP is elevated 11079. EKG showing sinus bradycardia at [address]-T changes and a few PVC. QTC is 434. Chest x-ray: Direct right pleural effusion In the emergency room he was started on Lasix 20 mg twice daily. 12/09/2020 Patient is seen and evaluated in room at bedside; denies any complaint of chest pain; patient does report improvement in breathing; reports improvement in lower extremity edema Vital signs are reviewed which reveal softer blood pressure; patient did receive antihypertensive medications in form of lisinopril and atenolol this morning Echocardiogram is completed revealing an ejection fraction of 20-25%, mild mitral regurgitation, mild tricuspid regurgitation, mild pulmonary hypertension and moderate pleural effusion Cardiology recommending to discontinue atenolol at this time due to hypotension but plans to decrease lisinopril; patient has been started on slow IV fluid hydration with normal saline at a rate of 50 mL an hour Pulmonary service is consulted for possible right thoracentesis 12/10/2020 Patient is seen and evaluated sitting comfortably in bed; patient is status post thoracocentesis Large right-sided pleural effusion with patient status post thoracentesis, with removal of 2 L of turbulent yellow fluid which is sent for cytology; post thoracentesis chest x-rays reviewed which reveals near complete resolution of effusion with no pneumothorax; patient remains on diuretic therapy Vital signs are reviewed and remained stable; patient was hypotensive earlier in the day with cardiology decreasing atenolol and patient is started on slow IV fluid hydration with normal saline at rate of 50 mL an hour; patient is restarted on Coreg at 1.563 mg twice a day; cardiology recommending to continue with current dose of lisinopril Echocardiogram reveals an EF of 20-25% which was previously 40-45%; patient is started on IV amiodarone bolus and infusion; patient will require LifeVest versus ICD implantation due to severe cardiomyopathy 12/11/2020 patient is currently sitting in the chair comfortably. Breathing status is improving but patient is still having bilateral lower extremity edema. Currently being continued on Lasix 40 mg IV 3 times daily and also on amiodarone infusion. Patient did have nonsustained ventricular tachycardia. Patient continues to be hypotensive with a blood pressure 97/61 and heart rate 72 today. Patient denied any complaints of fever or chills. No cough or sputum production. Cardiology is planning for cardiac catheterization today. Laboratory showed potassium 3.6 BUN 20 and creatinine 1.08 patient is status post right thoracentesis. Cardiology and pulmonary is on board. 12/12/2020 Patient is currently resting in the chair comfortably. No complaints of chest pain or worsening shortness of. Patient is still having bilateral lower extremity edema and also blood pressure is on the lower side. Patient is being continued Lasix changed to by mouth. Patient is scheduled for cardiac catheterization today. Laboratory showed sodium 138, potassium 3.7, bicarbonate 32 BUN 20 and creatinine 1.05 Patient is being continued amiodarone, aspirin, statins and Coreg as blood pressure is tolerated. 12/13/2020 Patient is currently sitting reactive comfortably. No complaints of chest pain or shortness of breath. Leg swelling is improving. Patient is status post cardiac catheterization showed calcified arteries, chronically occluded RCA with moderate disease in the LAD and left circumflex with collaterals from the left system towards the RCA and mild pulmonary hypertension. Maximal medical therapy was recommended by cardiology. Laboratory data showed BUN 18 and creatinine 1.09 Patient was also found to have left forearm thrombophlebitis and was started on IV antibiotics. Patient will eventually need AICD placement but due to high risk for infection at this time LifeVest placement prior to discharge was recommended. Cardiology is on board. Current medications reviewed. Objective - Vital Signs Vital signs: Vital Signs Temp 97.9 F 12/13/20 08:00 Pulse 69 12/13/20 14:00 Resp 18 12/13/20 14:00 BP 106/53 12/13/20 12:00 Pulse Ox 95 12/13/20 12:00 Intake & Output 12/12/20 12/13/20 12/13/20 18:59 06:59 18:59 Intake Total 100 800 480 Output Total 1100 Balance 100 -300 480 Weight 81 kg 81.1 kg Intake: IV 100 20 Invasive Line 3 20 Oral 780 480 Output: Urine 1100 Other: Voiding Method Toilet Urinal - Exam - Exam GENERAL: The patient is alert and oriented x3, not in any acute distress. Well developed, well nourished. HEENT: Pupils are round and equally reacting to light. EOMI. No scleral icterus. No conjunctival pallor. Normocephalic, atraumatic. No pharyngeal erythema. No thyromegaly. CARDIOVASCULAR: S1 and S2 present. No murmurs, rubs, or gallops. -PULMONARY: Chest is clear to auscultation, no wheezing or crackles. Basal crepitation. Decreased breath sounds on the right basal site ABDOMEN: Soft, nontender, nondistended, normoactive bowel sounds. No palpable organomegaly. MUSCULOSKELETAL: No joint swelling or deformity. -EXTREMITIES: No cyanosis, clubbing,2+ bilateral pitting leg edema. NEUROLOGICAL: Gross neurological examination did not reveal any focal deficits. SKIN: No rashes. No petechiae - Labs CBC & Chem 7: 12/07/20 13:49 12/13/20 09:15 Labs: Abnormal Lab Results - Last 24 Hours (Table) 12/13/20 Range/Units 09:15 Carbon Dioxide 33 H (22-30) mmol/L Glucose 174 H (74-99) mg/dL Microbiology - Last 24 Hours (Table) 12/10/20 12:00 Gram Stain - Preliminary Pleural Fluid Body Fluid Culture - Preliminary Assessment and Plan Assessment: Acute systolic CHF exacerbation,ejection fraction 20%-25% Left forearm thrombophlebitis at the IV insertion site. moderate right pleural effusion s/p thoracentesis Hypertension Hyperlipidemia Nonsustained ventricular tachycardia. Hypokalemia and hypomagnesemia history of hypertension. Currently patient is hypotensive hyperlipidemia DVT prophylaxis patient is on heparin drip. Plan: Patient was on the amiodarone drip and IV Lasix. ahnaged to by mouth. cardiology is planning for catheterization today. Follow-up renal function. Cardiology is on board, Plan for AICD placement. further recommendations based on the clinical course. Prognosis guarded at this time. Time with Patient: Greater than 30
[2020-12-14] MEDS: EZETIMIBE 10 MG TAB PO SCH (05:21)
[2020-12-14] MEDS: SODIUM CHLORIDE 0.9% 1,000 ML IV SCH (05:21)
[2020-12-14] MEDS: ATORVASTATIN 80 MG TAB PO SCH (05:21)
[2020-12-14] MEDS ORDERED: SODIUM CHLORIDE 0.9% 1,000 ML IV SCH (06:00)
[2020-12-14] MEDS: carvediloL 3.125 MG TAB PO SCH ×2 (06:24→17:39)
[2020-12-14] MEDS: AMIODARONE 200 MG TAB PO SCH ×2 (08:45→20:58)
[2020-12-14] MEDS: FUROSEMIDE 40 MG TAB PO SCH ×2 (08:45→17:39)
[2020-12-14] MEDS: SPIRONOLACTONE 25 MG TAB PO SCH (08:45)
[2020-12-14] MEDS: FAMOTIDINE 20 MG TAB PO SCH ×2 (08:45→20:58)
[2020-12-14] MEDS: ASPIRIN 81 MG PO SCH (08:45)
[2020-12-14] MEDS: HEPARIN SODIUM,PORCINE 5,000 UNIT/ML 1 ML VIAL SQ SCH ×2 (08:46→20:59)
[2020-12-14 11:01] LABS: Calcium 8.9 mg/dL (8.4-10.2)
--- NOTE | 2020-12-14 14:37 | P.PN ---
Subjective Patient seen and examined sitting up in the recliner in no acute distress. He states overall he feels like his breathing is improving. He continues to have lower extremity edema that he states is better since he came into the hospital as well. He denies any symptoms of chest discomfort. He states his orthopnea has improved since admission. Blood pressure 97/61 heart rate 72 afebrile maintaining oxygen saturation on room air. Laboratory data reviewed, sodium 138, potassium 3.6, creatinine 1.08 and magnesium 1.8. Currently maintained on amiodarone infusion, atorvastatin 80 mg daily, coreg 1.563 mg BID, zetia 10 mg daily, lasix 40 mg IV TID and lisinopril 2.5 mg daily. However, lisinopril and coreg have been held due to hypotension. He has had no further VT since yesterday afternoon. 12/14/2020 Patient seen and examined sitting up in bed. His LifeVest has been placed. He has no symptoms of chest pain or shortness of breath. He verbalizes clear understanding of how to use the Life Vest. His left arm looks more edematous and red today. Blood pressure 101/56 heart rate 74 afebrile maintaining oxygen saturation on room air. Laboratory data reviewed, sodium 138, potassium 4.0, creatinine 1.03. GENERAL: Well-appearing, well-nourished and in no acute distress. NECK: Supple without JVD or thyromegaly. LUNGS: Breath sounds clear to auscultation bilaterally. Respiration equal and unlabored. No wheezes, rales or rhonchi. Diminished bilaterally. HEART: Regular rate and rhythm without murmurs, rubs or gallops. S1 and S2 heard. EXTREMITIES: Normal range of motion, bilateral lower extremity 1+ pitting edema. No clubbing or cyanosis. Peripheral pulses intact. ASSESSMENT Acute systolic heart failure secondary to myocardial injury Pleural effusion Non-sustained ventricular tachycardia Hypokalemia Hypomagnesemia Coronary artery disease s/p [place] 2006 with medical management recommended Hypertension history with hypotension since admission Dyslipidemia PLAN Asked infectious disease to evaluate his arm. We had initiated him on Kefzol however the infection appears to have worsened in the previous 24 hours. Check CBC for evidence of leuckocytosis. Overall, he is stable from a cardiac perspective on current medication regimen and can be discharged once ID gives antibiotic recommendations. Follow up in the office with Dr. Cary in 1-week. Nurse Practitioner note has been reviewed, I agree with a documented findings an d plan of care. Patient was seen and examined. Objective - Vital Signs Vital signs: Vital Signs Temp 99.1 F 12/14/20 13:39 Pulse 74 12/14/20 13:39 Resp 16 12/14/20 13:39 BP 101/56 12/14/20 13:39 Pulse Ox 96 12/14/20 13:39 Intake & Output 12/13/20 12/14/20 12/14/20 18:59 06:59 18:59 Intake Total 720 660 Output Total 500 Balance 720 160 Weight 79.5 kg Intake: Oral 720 660 Output: Urine 500 Other: Voiding Method Toilet Urinal - Labs CBC & Chem 7: 12/07/20 13:49 12/14/20 09:59 Labs: Abnormal Lab Results - Last 24 Hours (Table) 12/14/20 Range/Units 09:59 Carbon Dioxide 35 H (22-30) mmol/L Glucose 137 H (74-99) mg/dL Microbiology - Last 24 Hours (Table) 12/10/20 12:00 Gram Stain - Final Pleural Fluid Body Fluid Culture - Final
[2020-12-14 14:49] LABS: HCT 34.9 % (39.0-53.0); HGB 11.3 gm/dL (13.0-17.5); MCHC 32.4 g/dL (31.0-37.0); MCV 95.8 fL (80.0-100.0); Mean Platelet Volume 9.2; Platelet Count 155 k/uL (150-450); RBC 3.65 m/uL (4.30-5.90); WBC 4.7 k/uL (3.8-10.6)
[2020-12-15] MEDS ORDERED: ATORVASTATIN 80 MG TAB ONE (04:00)
[2020-12-15] MEDS ORDERED: EZETIMIBE 10 MG TAB ONE (04:00)
[2020-12-15] MEDS ORDERED: SODIUM CHLORIDE 0.9% 1,000 ML BAG ONE (04:00)
--- NOTE | 2020-12-15 05:36 | CONS ---
CONSULTATION DATE OF SERVICE: 12/14/2020 REASON FOR CONSULTATION: Left arm IV site phlebitis and cellulitis. HISTORY OF PRESENT ILLNESS: The patient is a 80-year-old male who presented to the hospital about a week ago on December 07, 2020, for evaluation of increasing shortness of breath, lower extremity edema. No significant chest pain. Patient had been diagnosed with acute congestive heart failure NC and runs of non-sustained ventricular tachycardia. The patient was being managed by the cardiology team. The patient apparently did have an IV placed in the left arm about 3 days ago and started having problems where the seemed to have infiltrated. That IV was discontinued and another next to it. The next morning when he woke up the left arm was swollen and red and tender. It has been described by the patient to be more of a dull aching, 3 to 4 out of 10, and no radiation. It was subsequently discontinued. The patient did not have a fever during this hospital stay. The patient was started on cefazolin yesterday. No blood culture has been done. Infectious Disease was consulted today for management of antibiotic therapy. The patient did mention that the left arm swelling and redness have improved. The patient does not currently have any open wound or any drainage. The patient denies having any chest pain. His breathing has much improved. Denies any cough or sputum production. No nausea, vomiting, abdominal pain or diarrhea. REVIEW OF SYSTEMS: Positive points have been mentioned in the HPI. Rest of the systems are negative. PAST MEDICAL HISTORY: History of NC and heart failure. PAST SURGICAL HISTORY: Heart catheterization SOCIAL HISTORY: The patient denies smoking. Occasionally drinks. No drug use. FAMILY HISTORY: No pertinent findings noticed. ALLERGIES: NO KNOWN DRUG ALLERGIES. MEDICATIONS: The patient is currently on Xanax, amiodarone, aspirin, Lipitor, Coreg, cefazolin 1 gram q.6, Pepcid, Lasix, heparin, Nitrostat, Aldactone. PHYSICAL EXAMINATION: Blood pressure 138/58 with a pulse of 69, temperature 97.6. He is 98% on room air. General description is an elderly male lying in bed in no distress. HEENT: Examination shows no pallor or scleral icterus. Oral mucous membrane is dry. NECK: Trachea is central. No thyromegaly. LUNGS: Unlabored breathing. Clear to auscultation. No wheeze or crackle. HEART: S1, S2. Regular rate and rhythm. ABDOMEN: Soft. No tenderness. No guarding or rigidity. EXTREMITIES: No edema of the feet. EXAMINATION OF LEFT LOWER EXTREMITY: It did have swelling and redness, slight cold feeling. No skin breakdown or drainage. Neurologically the patient is awake, alert, oriented x3. Mood and affect normal. LABS: Hemoglobin is 11.3, white count 4.7, BUN of 16, creatinine 1.03. Electrolytes have been normal. DIAGNOSTIC IMPRESSION AND PLAN: Patient with left arm IV site thrombophlebitis plus/minus mild cellulitis, likely from a Gram-positive skin felipa in this patient with no fever or elevated white count. Clinical suspicion low for underlying septic phlebitis. PLAN: 1. Blood culture should be obtained. Ideally it should have been obtained before starting with antibiotic therapy. 2. Will niranjan the area of the redness. 3. Will obtain Dopplers on the areas to make sure no evidence of any DVT or any fluid collection that may need to be drained. 4. Cefazolin dose should be adjusted to 2 grams q.8 hours. 5. Will follow clinical condition and investigations to further adjust medication if needed. Thank you for this consultation. Will follow this patient along with you. MMODL / IJN: [id number] /
[2020-12-15] MEDS: SODIUM CHLORIDE 0.9% 1,000 ML IV SCH (05:54)
[2020-12-15] MEDS: EZETIMIBE 10 MG TAB PO SCH (05:54)
[2020-12-15] MEDS: ATORVASTATIN 80 MG TAB PO SCH (05:54)
[2020-12-15] MEDS: carvediloL 3.125 MG TAB PO SCH ×2 (07:04→17:19)
--- NOTE | 2020-12-15 09:10 | US ---
EXAMINATION TYPE: US venous doppler duplex UE LT DATE OF EXAM: 12/15/2020 COMPARISON: NONE CLINICAL HISTORY: left upper arm IV site phlebitis, r/o DVT/abscess. Recent IV site in left forearm i s now swollen and red, no h/o dvt, not on thinners SIDE PERFORMED: Left Left Arm: Appears positive for superficial thrombus, internal echoes, dilated basilic vein at forearm that did not compress. No evidence for DVT IMPRESSION: 1. No diagnostic evidence of DVT. 2. Exam positive for superficial venous thrombosis
[2020-12-15] MEDS: ASPIRIN 81 MG PO SCH (09:13)
[2020-12-15] MEDS: FUROSEMIDE 40 MG TAB PO SCH ×2 (09:13→17:19)
[2020-12-15] MEDS: HEPARIN SODIUM,PORCINE 5,000 UNIT/ML 1 ML VIAL SQ SCH (09:13)
[2020-12-15] MEDS: FAMOTIDINE 20 MG TAB PO SCH (09:13)
[2020-12-15] MEDS: AMIODARONE 200 MG TAB PO SCH (09:13)
[2020-12-15] MEDS: SPIRONOLACTONE 25 MG TAB PO SCH (09:13)
[2020-12-15] MEDS ORDERED: polyethylene glycoL 3350 17 GM POWD.PACK PO SCH (12:00)
--- NOTE | 2020-12-15 13:01 | P.PN ---
Subjective Patient seen and examined sitting up in the recliner in no acute distress. He states overall he feels like his breathing is improving. He continues to have lower extremity edema that he states is better since he came into the hospital as well. He denies any symptoms of chest discomfort. He states his orthopnea has improved since admission. Blood pressure 97/61 heart rate 72 afebrile maintaining oxygen saturation on room air. Laboratory data reviewed, sodium 138, potassium 3.6, creatinine 1.08 and magnesium 1.8. Currently maintained on amiodarone infusion, atorvastatin 80 mg daily, coreg 1.563 mg BID, zetia 10 mg daily, lasix 40 mg IV TID and lisinopril 2.5 mg daily. However, lisinopril and coreg have been held due to hypotension. He has had no further VT since yesterday afternoon. 12/15/2020 Patient seen and examined sitting up in the recliner in no acute distress. He denies chest pain, dizziness, palpitations or shortness of breath. He is concerned he hasn't had a bowel movement in over 1-week. Life Vest in place. No further VT noted on telemetry. Dr. Brumfield made antibiotic recommendations. Blood pressure 101/57 heart rate 64 afebrile and maintaining oxygen saturation on room air. GENERAL: Well-appearing, well-nourished and in no acute distress. NECK: Supple without JVD or thyromegaly. LUNGS: Breath sounds clear to auscultation bilaterally. Respiration equal and unlabored. No wheezes, rales or rhonchi. Diminished bilaterally. HEART: Regular rate and rhythm without murmurs, rubs or gallops. S1 and S2 heard. EXTREMITIES: Normal range of motion, bilateral lower extremity 1+ pitting edema. No clubbing or cyanosis. Peripheral pulses intact. ASSESSMENT Acute systolic heart failure secondary to myocardial injury Thrombophlebitis Pleural effusion Non-sustained ventricular tachycardia Hypokalemia Hypomagnesemia Coronary artery disease s/p OR 2006 with medical management recommended Hypertension history with hypotension since admission Dyslipidemia PLAN Give miralax for constipation. Stable for discharge from a cardiac perspective. Continue antibiotics as recommended per Dr. Brumfield. Follow up in the office with Dr. Cary. Nurse Practitioner note has been reviewed, I agree with a documented findings a nd plan of care. Patient was seen and examined. Objective - Vital Signs Vital signs: Vital Signs Temp 96.9 F L 12/15/20 12:10 Pulse 64 12/15/20 12:10 Resp 16 12/15/20 12:25 BP 101/57 12/15/20 12:10 Pulse Ox 99 12/15/20 12:10 Intake & Output 12/14/20 12/15/20 12/15/20 18:59 06:59 18:59 Intake Total 1140 240 Output Total 500 375 Balance 640 -135 Weight 81.7 kg Intake: Oral 1140 240 Output: Urine 500 375 Other: Voiding Method Toilet Urinal - Labs CBC & Chem 7: 12/14/20 09:59 12/14/20 09:59 Labs: Abnormal Lab Results - Last 24 Hours (Table) 12/14/20 Range/Units 09:59 RBC 3.65 L (4.30-5.90) m/uL Hgb 11.3 L (13.0-17.5) gm/dL Hct 34.9 L (39.0-53.0) % Microbiology - Last 24 Hours (Table) 12/10/20 12:00 Gram Stain - Final Pleural Fluid Body Fluid Culture - Final
--- NOTE | 2020-12-15 15:28 | PN ---
PROGRESS NOTE DATE OF SERVICE: 12/15/2020 REASON FOR FOLLOWUP: Left arm thrombophlebitis from IV site. INTERVAL HISTORY: The patient is currently afebrile. The patient is breathing comfortably. Denies having any chest pain. No shortness of breath or cough. No abdominal pain. Overall left upper extremity swelling and redness has improved. PHYSICAL EXAMINATION: Blood pressure 101/57 with a pulse of 64, temperature 96.9. He is 99% on room air. General description is an elderly male up in the chair in no distress. RESPIRATORY SYSTEM: Unlabored breathing, clear to auscultation anteriorly. HEART: S1, S2. Regular rate and rhythm. ABDOMEN: Soft, no tenderness. Left upper extremity swelling has slightly decreased. LABS: White count normal at 4.7. CRP 9.4. Blood culture obtained currently pending. The patient's left upper extremity Doppler shows some superficial , no evidence of DVT. DIAGNOSTIC IMPRESSION AND PLAN: Patient left upper extremity thrombophlebitis from the IV, has been discontinued. Patient with no fever or elevated white count. Clinical suspicion is for underlying septic phlebitis. On cefazolin and overall improvement. Finish therapy with oral Keflex. Continue supportive care. MMODL / IJN: [id number] /
[2020-12-15 15:56] VITALS: BP 122/62; RESP 18; TEMP 97.9
[2020-12-15 16:30] VITALS: PULSE 70
[2020-12-16] MEDS ORDERED: AMIODARONE 200 MG TAB PO SCH (09:00)
--- NOTE | 2020-12-25 09:11 | CDI ---
Documentation Clarification Form Date: 12/25/2020 08:57:36 AM From: Fausto Ball Phone: Admit Date: 12/07/2020 03:13:00 PM Patient Name: Omar Hines Visit Number: [id number] Discharge Date: 12/15/2020 07:28:00 PM ATTENTION: The Clinical Documentation Specialists (CDI) and [facility] Coding Staff appreciate your assistance in clarifying documentation. Please respond to the clarification below the line at the bottom and electronically sign. The CDI & [facility] Coding staff will review the response and follow-up if needed. Please note: Queries are made part of the Legal Health Record. If you have any questions, please contact the author of this message via ITS. Dr. Ba E Gale Possible septic phlebitis is documented PN 12/15 which may lack sufficient clinical evidence/support in the medical record. Additional clarification is requested. Progress note 12/15 indicates LUE thrombophlebitis from the IV. History/Risk Factors: Clinical Indicators: Treatment: Please clarify if the thrombophlebitis was a complication of the IV [ ] Yes, [ ] No, [insert diagnosis] is ruled out [ ] Other (please specify diagnosis) [X ] Unable to determine MTDD
== END 2020-12-15 19:28 | disposition home health service (06) | DRG 287 ==
LOC: EC 11:59 → 3SCARD 15:13
PROVIDERS: ADMIT Internal Medicine; ATTEND Internal Medicine
PROC: 0W993ZZ Drainage of Right Pleural Cavity, Percutaneous Approach (ICD-10-PCS; 2020-12-10)
PROC: B2111ZZ Fluoroscopy of Multiple Coronary Arteries using Low Osmolar Contrast (ICD-10-PCS; 2020-12-12)
PROC: B2151ZZ Fluoroscopy of Left Heart using Low Osmolar Contrast (ICD-10-PCS; 2020-12-12)
PROC: 02HP32Z Insertion of Monitoring Device into Pulmonary Trunk, Percutaneous Approach (ICD-10-PCS; principal; 2020-12-12 12:00)
PROC: 0W9B3ZZ Drainage of Left Pleural Cavity, Percutaneous Approach (ICD-10-PCS; 2020-12-13)
DX: I11.0 Hypertensive heart disease with heart failure (principal); L03.90 Cellulitis, unspecified; I47.2 Ventricular tachycardia; J90 Pleural effusion, not elsewhere classified; Z79.82 Long term (current) use of aspirin; I50.23 Acute on chronic systolic (congestive) heart failure; R00.1 Bradycardia, unspecified; Z82.49 Family history of ischemic heart disease and other diseases of the circulatory system; Z20.822 Contact with and (suspected) exposure to COVID-19; E78.5 Hyperlipidemia, unspecified; I25.2 Old myocardial infarction; Z90.81 Acquired absence of spleen; I80.8 Phlebitis and thrombophlebitis of other sites; I27.20 Pulmonary hypertension, unspecified; I95.9 Hypotension, unspecified; I25.5 Ischemic cardiomyopathy; E83.42 Hypomagnesemia; E87.6 Hypokalemia; I25.10 Atherosclerotic heart disease of native coronary artery without angina pectoris; J44.9 Chronic obstructive pulmonary disease, unspecified; I08.1 Rheumatic disorders of both mitral and tricuspid valves
CPT/HCPCS: 36415; 71045; 71046; 76604; 80048; 80053; 80061; 82810; 82945; 83605; 83615; 83735; 83880; 84132; 84157; 84443; 84484; 85018; 85025; 85027; 85610; 85730; 86140; 87040; 87070; 87102; 87116; 87205; 87206; 87252; 87496; 87498; 87502; 87529; 87634; 87635; 87798; 88108; 88305; 89050; 93005; 93308; 93460; 94760; 96374; 99285

== ENCOUNTER 2020-12-25 01:02 | Observation (INO) | payer MEDICARE ==
[2020-12-25] MEDS ORDERED: NALOXONE 0.4 MG/ML 1 ML VIAL IV PRN (01:33)
--- NOTE | 2020-12-25 01:33 | ED ---
Syncope HPI - General Stated Complaint: Fall Time Seen by Provider: 12/25/20 01:07 Source: patient, EMS Mode of arrival: EMS - History of Present Illness Initial Comments: 80-year-old male history of CHF, dyslipidemia, hypertension, congestive heart failure with current external defibrillator presenting to the emergency department today for chief complaint of syncopal episode. Patient states that he was in the back room going to the oven to pull him out when he bent over, and then just her numbers waking up on the floor he believes he passed out. Patient states he did feel some slight vibration which she thought was from the defibrillator. However he denies any shocklike pain in the chest. Patient denies any chest pain at all he denies any chest pressure. Patient denies jaw pain diaphoresis nausea or epigastric pain. Patient states he has had some increased swelling the past 2 days as well as shortness of breath with ambulating he states he feels like his lungs are filled with fluid and he did take about 45 steps before feeling significantly short of breath. Patient states he has been compliant with his Lasix. Secondary to syncopal episode he had his call EMS he states he is unsure how long he had loss consciousness for. Patient denies any headache nausea vomiting neck pain back pain extremity pain. Patient was initially brought to [facility] he had a full workup. Patient's CT brain C-spine negative. Chest x-ray revealed a right trace pleural effusion however there is more obvious bilateral pleural effusions are recognized on the computed tomography scan of the cervical spine. Patient's white blood cell count 6.81 hemoglobin 11 platelets 223 electrolytes are within normal limits. Troponin 0.013 CPK 134. Patient's creatinine is 1.2. Patient states he currently feels well he is not short of breath he denies a chest pain he denies additional vibrations or any shocks. Patient denies any nausea vomiting indigestion. He appears well upon arrival - Related Data Home Medications Medication Instructions Recorded Confirmed Aspirin EC [Ecotrin Low Dose] 81 mg PO DAILY@39912/07/20 12/25/20 Atorvastatin [Lipitor] 80 mg PO DAILY@39912/07/20 12/25/20 Ezetimibe [Zetia] 10 mg PO DAILY@39912/07/20 12/25/20 Nitroglycerin Sl Tabs [Nitrostat] 0.4 mg SUBLINGUAL Q5M PRN 12/07/20 12/25/20 Previous Rx's Medication Instructions Recorded Amiodarone [Cordarone] 200 mg PO DAILY #30 tab 12/15/20 Cephalexin [Keflex] 500 mg PO Q8HR 5 Days #15 cap 12/15/20 Docusate [Colace] 100 mg PO BID PRN #30 capsule 12/15/20 Furosemide [Lasix] 40 mg PO BID@0900,1600 #60 tab 12/15/20 Spironolactone [Aldactone] 25 mg PO DAILY #30 tab 12/15/20 carvediloL [Coreg] 3.125 mg PO BID-W/MEALS #60 tab 12/15/20 Allergies Allergy/AdvReac Type Severity Reaction Status Date / Time Penicillins AdvReac Unknown Verified 12/25/20 07:01 Review of Systems ROS Statement: Those systems with pertinent positive or pertinent negative responses have been documented in the HPI. ROS Other: All systems not noted in ROS Statement are negative. Past Medical History Past Medical History: Heart Failure, Myocardial Infarction ([place]) Additional Past Medical History / Comment(s): external defib put on 12/15 Last Myocardial Infarction Date:: 2006 History of Any Multi-Drug Resistant Organisms: None Reported Past Surgical History: Heart Catheterization Additional Past Surgical History / Comment(s): liver lac repair, SPLENECTOMY. Past Anesthesia/Blood Transfusion Reactions: No Reported Reaction Past Psychological History: No Psychological Hx Reported Smoking Status: Never smoker Past Alcohol Use History: Occasional Past Drug Use History: None Reported - Past Family History Mother Family Medical History: No Reported History Father Family Medical History: Coronary Artery Disease (CAD) General Exam - General Exam Comments Initial Comments: General: The patient is awake and alert, in no distress, and does not appear acutely ill. Eye: + 3mm pupils are equal, round and reactive to light, extra-ocular movements are intact. No nystagmus. There is normal conjunctiva bilaterally. No signs of icterus. Ears, nose, mouth and throat: There are moist mucous membranes and no oral lesions. Neck: The neck is supple, there is no tenderness or JVD. Cardiovascular: There is a regular rate and rhythm. No rub or gallop is appreciated. Respiratory: Respirations are non-labored, breath sounds are equal. No wheezes, stridor, or rhonchi. Faint base rales Gastrointestinal: Soft, non-distended, non-tender abdomen without masses or organomegaly noted. There is no rebound or guarding present. No CVA tenderness. Musculoskeletal: Normal ROM, no tenderness. Strength 5/5. Sensation intact. Radial and Dp pulses equal bilaterally 2+. Neurological: A&O x 3. CN II-XII intact, There are no obvious motor or sensory deficits. Coordination appears grossly intact. Speech is normal. Skin: Skin is warm and dry and no rashes or lesions are noted. Bilateral lower extremity pitting edema Psychiatric: Cooperative, appropriate mood & affect, normal judgment. 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 ] Respiratory 18 18 18 Rate Blood Pressure 115/83 97/64 97/57 Blood Pressure [Left Arm Sitting] Blood Pressure [Left Arm Standing] Blood Pressure [Left Arm Supine] O2 Sat by Pulse 97 97 97 Oximetry 12/25/20 12/25/20 12/25/20 10:45 11:34 14:10 Temperature Pulse Rate 76 Pulse Rate [ 85 Icebox Worker ] Respiratory 18 18 18 Rate Blood Pressure 100/60 Blood Pressure 97/58 [Left Arm Sitting] Blood Pressure 109/91 [Left Arm Standing] Blood Pressure 90/60 [Left Arm Supine] O2 Sat by Pulse 98 95 Oximetry 12/25/20 18:34 Temperature 98.3 F Pulse Rate 71 Pulse Rate [ Icebox Worker ] Respiratory 18 Rate Blood Pressure 92/56 Blood Pressure [Left Arm Sitting] Blood Pressure [Left Arm Standing] Blood Pressure [Left Arm Supine] O2 Sat by Pulse 96 Oximetry EKG Findings - EKG Comments: EKG Findings:: Ventricular rate 80 bpm, [place] interval 246 ms. QRS duration 148 ms, QT/QTC 436/502 ms. This is sinus rhythm with a first-degree AV block as well as a noted left bundle branch block. No ST elevation or depression is appreciated. Medical Decision Making - Medical Decision Making 80-year-old male being transferred for suspected cardiogenic syncope. History of CHF. BNP significantly elevated. Troponin (-). Patient labs stable he is in no distress. patient admitted for cardiology consultation on lasix. Dr Rodríguez agreeable to care plan. - Lab Data Result diagrams: 12/25/20 09:56 12/25/20 09:56 Lab Results 12/25/20 12/25/20 12/25/20 Range/Units 01:49 01:49 01:49 Troponin I 0.013 (0.000-0.034) ng/mL NT-Pro-B Natriuret Pep 07297 pg/mL Coronavirus (PCR) Not Detected (Not Detectd) Disposition Clinical Impression: CHF (congestive heart failure), Syncope, Pleural effusion Disposition: ADMITTED IP TO THIS [facility] Condition: Stable Is patient prescribed a controlled substance at d/c from ED?: No Time of Disposition: : Decision to Admit Reason: Admit from EC Decision Date: 12/25/20 Decision Time: :31
[2020-12-25] MEDS: FUROSEMIDE 10 MG/ML 4 ML VIAL IV SCH ×3 (08:44→22:20)
--- NOTE | 2020-12-25 10:29 | P.CRDCN ---
History of Present Illness Consult date: 12/25/20 History of present illness: HISTORY OF PRESENT ILLNESS: This is a 80-year-old male with a past medical history significant for congestive heart failure, hypertension, hyperlipidemia, cardiomyopathy, and nonsustained ventricular tachycardia. Patient follows in the office with Dr. Cary. We have been asked to see the patient in consultation for syncope and congestive heart failure. Patient examined at the bedside in the emergency room. Patient states he was cooking dinner for [employer] yesterday and was feeling in his normal state of health. He does report he has been feeling a little short of breath for the past few days but nothing significant. He states he went to open oven door to get out a ham and when he felt the heat from 11 hip him he passed out. He denies feeling dizzy or lightheaded before this. He denies having chest pain or worsening shortness of breath prior to this. Patient denies biting his tongue. He denies loss of bowel or bladder control. He states his life vest was beeping when he woke up. He reports feeling mildly confused for a very short time afterwards. At the time of examination, the patient denies chest pain or pressure. He denies dizziness or lightheadedness. He denies shortness of breath. He reports lower extremity edema which he states is near his baseline. Patient was recently hospitalized last month for congestive heart failure. He was found to have worsening LV function. He underwent cardiac catheterization at that time (details below). Patient was going to have an ICD placed however he developed an infection of his left arm from an IV and was placed on antibiotics and his ICD implantation was postponed. EKG reveals sinus rhythm with first-degree AV block. Left bundle branch block. Chest x-ray completed at outside facility revealed right trace pleural effusion Laboratory data: Troponin 0.013. BNP 11,800. Current home cardiac medications include Coreg 3.125 mg twice a day, Aldactone 25 mg daily, Lasix 40 mg twice a day, Zetia 10 mg daily, Lipitor 80 mg daily, aspirin 81 mg daily, and amiodarone 20 mg daily Most recent echocardiogram obtained on 12/08/2020 revealed ejection fraction 20- 25%, mild mitral regurgitation, mild tricuspid regurgitation, and mild pulmonary hypertension. Cardiac catheterization history: 12/13/2020 revealing calcified coronary arteries. Chronically occluded right coronary artery with moderate disease in the LAD and left circumflex. Collaterals from the left coronary system towards RCA. Mild pulmonary hypertension. REVIEW OF SYSTEMS: At the time of my exam: CONSTITUTIONAL: Denies fever or chills. HEENT: Denies blurred vision, vision changes, or eye pain. Denies hemoptysis CARDIOVASCULAR: Denies chest pain. Denies orthopnea. Denies PND. Denies palpitations RESPIRATORY: Denies shortness of breath. GASTROINTESTINAL: Denies abdominal pain. Denies nausea or vomiting. HEMATOLOGIC: Denies bleeding disorders. GENITOURINARY: Denies any blood in urine. SKIN: Denies pruitis. Denies rash. PHYSICAL EXAM: VITAL SIGNS: Reviewed. GENERAL: Well-developed in no acute distress. HEENT: Head is normocephalic. Pupils are equal, round. Sclerae anicteric. Mucous membranes of the mouth are moist. Neck supple. No JVD or thyromegaly LUNGS: Respirations even and unlabored. Lungs diminished with bibasilar rales HEART: Regular rate and rhythm. S1 and S2 heard. ABDOMEN: Soft. Nondistended. Nontender. EXTREMITIES: Normal range of motion. No clubbing or cyanosis. Peripheral pulses intact. 2+ bilateral lower extremity edema NEUROLOGIC: Awake and alert. Oriented x 3. ASSESSMENT: Syncope Acute exacerbation of chronic systolic heart failure, ejection fraction 20-25% Ischemic cardiomyopathy, currently on life vest Coronary artery disease Hypertension Hyperlipidemia Recent left upper extremity infection, secondary to IV PLAN: No need to repeat echocardiogram as this was performed last month Spoke with Shelbi Dwyer, who reviewed patients device and states no record of defibrillation and no abnormal arrhythmias noted. Obtain orthostatic blood pressures Patient to undergo ICD placement in the next few weeks Continue IV Lasix Monitor kidney function Daily weights Accurate I&O Further recommendations pending patient's course Nurse practitioner note has been reviewed by physician. Signing provider agrees with the documented findings, assessment, and plan of care. Past Medical History Past Medical History: Heart Failure, Myocardial Infarction ([place]) Additional Past Medical History / Comment(s): external defib put on 12/15 Last Myocardial Infarction Date:: 2006 History of Any Multi-Drug Resistant Organisms: None Reported Past Surgical History: Heart Catheterization Additional Past Surgical History / Comment(s): liver lac repair, SPLENECTOMY. Past Anesthesia/Blood Transfusion Reactions: No Reported Reaction Past Psychological History: No Psychological Hx Reported Smoking Status: Never smoker Past Alcohol Use History: Occasional Past Drug Use History: None Reported - Past Family History Mother Family Medical History: No Reported History Father Family Medical History: Coronary Artery Disease (CAD) Medications and Allergies Home Medications Medication Instructions Recorded Confirmed Type Aspirin EC [Ecotrin Low Dose] 81 mg PO DAILY@0400 12/07/20 12/25/20 History Atorvastatin [Lipitor] 80 mg PO DAILY@0400 12/07/20 12/25/20 History Ezetimibe [Zetia] 10 mg PO DAILY@0400 12/07/20 12/25/20 History Nitroglycerin Sl Tabs [Nitrostat] 0.4 mg SUBLINGUAL Q5M PRN 12/07/20 12/25/20 History Amiodarone [Cordarone] 200 mg PO DAILY #30 tab 12/15/20 12/25/20 Rx Cephalexin [Keflex] 500 mg PO Q8HR 5 Days #15 cap 12/15/20 12/25/20 Rx Docusate [Colace] 100 mg PO BID PRN #30 capsule 12/15/20 12/25/20 Rx Furosemide [Lasix] 40 mg PO BID@0900,1600 #60 tab 12/15/20 12/25/20 Rx Spironolactone [Aldactone] 25 mg PO DAILY #30 tab 12/15/20 12/25/20 Rx carvediloL [Coreg] 3.125 mg PO BID-W/MEALS #60 tab 12/15/20 12/25/20 Rx Allergies Allergy/AdvReac Type Severity Reaction Status Date / Time Penicillins AdvReac Unknown Verified 12/25/20 07:01 Physical Exam Vitals: Vital Signs Temp Pulse Resp BP Pulse Ox 12/25/20 07:56 97.7 F 75 18 97/57 97 12/25/20 06:30 81 18 97/64 97 12/25/20 01:07 97.8 F 74 18 115/83 97 Intake and Output 12/24/20 12/25/20 12/25/20 22:59 06:59 14:59 Other: Weight 79.379 kg Results Cardiac Enzymes 12/25/20 Range/Units 01:49 Troponin I 0.013 (0.000-0.034) ng/mL Current Medications Generic Name Dose Route Start Last Admin Trade Name Freq PRN Reason Stop Dose Admin Amiodarone HCl 200 mg 12/25/20 10:00 Amiodarone 200 Mg Tab PO DAILY [facility] Aspirin 81 mg 12/26/20 04:00 Aspirin 81 Mg PO DAILY@0400 [facility] Atorvastatin Calcium 80 mg 12/26/20 04:00 Atorvastatin 80 Mg Tab PO DAILY@0400 [facility] Carvedilol 3.125 mg 12/25/20 17:30 Carvedilol 3.125 Mg Tab PO BID-W/MEALS [facility] Ezetimibe 10 mg 12/26/20 04:00 Ezetimibe 10 Mg Tab PO DAILY@0400 [facility] Furosemide 40 mg 12/25/20 08:00 12/25/20 08:44 Furosemide 10 Mg/Ml 4 Ml Vial IV 40 mg DAILY [facility] Administration Naloxone HCl 0.2 mg 12/25/20 01:33 Naloxone 0.4 Mg/Ml 1 Ml Vial IV Q2M PRN Opioid Reversal Spironolactone 25 mg 12/26/20 09:00 Spironolactone 25 Mg Tab PO DAILY [facility] Intake and Output 12/24/20 12/25/20 12/25/20 22:59 06:59 14:59 Other: Weight 79.379 kg
[2020-12-25] MEDS: AMIODARONE 200 MG TAB PO SCH (10:44)
[2020-12-25 11:25] LABS: African American GFR (CKD) 67 (>60 ml/min/1.73 sqM); Anion Gap 6 mmol/L; Blood Urea Nitrogen 26 mg/dL (9-20); Calcium 9.1 mg/dL (8.4-10.2); Carbon Dioxide 28 mmol/L (22-30); Chloride 102 mmol/L (98-107); Glucose 198 mg/dL (74-99); Magnesium 2.2 mg/dL (1.6-2.3); Non-African American GFR(CKD) 58 (>60 ml/min/1.73 sqM); Potassium 4.7 mmol/L (3.5-5.1); Sodium 136 mmol/L (137-145)
[2020-12-25 11:53] LABS: Basophils % (A) 1 %; Eosinophils % (A) 1 %; HCT 32.8 % (39.0-53.0); HGB 11.1 gm/dL (13.0-17.5); Lymphocytes # (A) 0.8 k/uL (1.0-4.8); Lymphocytes % (A) 15 %; MCHC 33.8 g/dL (31.0-37.0); MCV 94.6 fL (80.0-100.0); Mean Platelet Volume 8.1; Monocytes # (A) 0.3 k/uL (0-1.0); Monocytes % (A) 6 %; Neutrophils # (A) 4.3 k/uL (1.3-7.7); Neutrophils % (A) 78 %; Platelet Count 228 k/uL (150-450); RBC 3.46 m/uL (4.30-5.90); RDW 15.7 % (11.5-15.5); WBC 5.5 k/uL (3.8-10.6)
[2020-12-25] MEDS ORDERED: CEPHALEXIN 500 MG CAP PO SCH (16:00)
--- NOTE | 2020-12-25 16:36 | P.HPIM ---
History of Present Illness 71-year-old pleasant male came in after a syncopal episode what appears like a vasovagal event or from his description. Patient had ischemic cardiomyopathy with the severely decreased EF of 25%. Patient appears to be in bit of heart failure although she he denied any paroxysmal nocturnal dyspnea he may have orthopnea was comparing of shortness of breath does have bilateral pedal edema. Patient has a LifeVest that was a placed about 10 days ago and the patient ICD implantation was postponed because of his infection in the left arm as per the patient. It appears patient had (left upper extremity thrombophlebitis. Patient had a recent cardiac catheterization as well. Patient denied any chest pain at this time denied any fever chills dysuria. Patient is creatinine is 1.09 which is around his baseline. Review of Systems REVIEW OF SYSTEMS: CONSTITUTIONAL: No fever, no malaise, no fatigue. HEENT: No recent visual problems or hearing problems. Denied any sore throat. CARDIOVASCULAR: No orthopnea, PND, no palpitation. PULMONARY: no cough, no hemoptysis. GASTROINTESTINAL: No diarrhea, no nausea, no vomiting, no abdominal pain. NEUROLOGICAL: No headaches, no weakness, no numbness. HEMATOLOGICAL: Denies any bleeding or petechiae. GENITOURINARY: Denies any burning micturition, frequency, or urgency. MUSCULOSKELETAL/RHEUMATOLOGICAL: Denies any joint pain, swelling, or any muscle pain. ENDOCRINE: Denies any polyuria or polydipsia. The rest of the 14-point review of systems is negative. Past Medical History Past Medical History: Heart Failure, Myocardial Infarction (MD) Additional Past Medical History / Comment(s): external defib put on 12/15 Last Myocardial Infarction Date:: 2006 History of Any Multi-Drug Resistant Organisms: None Reported Past Surgical History: Heart Catheterization Additional Past Surgical History / Comment(s): liver lac repair, SPLENECTOMY. Past Anesthesia/Blood Transfusion Reactions: No Reported Reaction Past Psychological History: No Psychological Hx Reported Smoking Status: Never smoker Past Alcohol Use History: Occasional Past Drug Use History: None Reported - Past Family History Mother Family Medical History: No Reported History Father Family Medical History: Coronary Artery Disease (CAD) Medications and Allergies Home Medications Medication Instructions Recorded Confirmed Type Aspirin EC [Ecotrin Low Dose] 81 mg PO DAILY@0400 12/07/20 12/25/20 History Atorvastatin [Lipitor] 80 mg PO DAILY@0400 12/07/20 12/25/20 History Ezetimibe [Zetia] 10 mg PO DAILY@0400 12/07/20 12/25/20 History Nitroglycerin Sl Tabs [Nitrostat] 0.4 mg SUBLINGUAL Q5M PRN 12/07/20 12/25/20 History Amiodarone [Cordarone] 200 mg PO DAILY #30 tab 12/15/20 12/25/20 Rx Cephalexin [Keflex] 500 mg PO Q8HR 5 Days #15 cap 12/15/20 12/25/20 Rx Docusate [Colace] 100 mg PO BID PRN #30 capsule 12/15/20 12/25/20 Rx Furosemide [Lasix] 40 mg PO BID@0900,1600 #60 tab 12/15/20 12/25/20 Rx Spironolactone [Aldactone] 25 mg PO DAILY #30 tab 12/15/20 12/25/20 Rx carvediloL [Coreg] 3.125 mg PO BID-W/MEALS #60 tab 12/15/20 12/25/20 Rx Allergies Allergy/AdvReac Type Severity Reaction Status Date / Time Penicillins AdvReac Unknown Verified 12/25/20 07:01 Physical Exam Vitals: Vital Signs Temp Pulse Pulse Resp BP BP BP 12/25/20 14:10 85 18 97/58 109/91 12/25/20 11:34 18 12/25/20 10:45 76 18 100/60 12/25/20 07:56 97.7 F 75 18 97/57 12/25/20 06:30 81 18 97/64 12/25/20 01:07 97.8 F 74 18 115/83 BP Pulse Ox 12/25/20 14:10 90/60 95 12/25/20 11:34 12/25/20 10:45 98 12/25/20 07:56 97 12/25/20 06:30 97 12/25/20 01:07 97 Intake and Output 12/25/20 12/25/20 12/25/20 06:59 14:59 22:59 Other: Weight 79.379 kg PHYSICAL EXAMINATION: GENERAL: The patient is alert and oriented x3, not in any acute distress. Well developed, well nourished. HEENT: Pupils are round and equally reacting to light. EOMI. No scleral icterus. No conjunctival pallor. Normocephalic, atraumatic. No pharyngeal erythema. No thyromegaly. CARDIOVASCULAR: S1 and S2 present. No murmurs, rubs, or gallops. PULMONARY: Chest is clear to auscultation, no wheezing or crackles. ABDOMEN: Soft, nontender, nondistended, normoactive bowel sounds. No palpable organomegaly. MUSCULOSKELETAL: No joint swelling or deformity. EXTREMITIES: No cyanosis, clubbing, does have 1-2+ bilateral pitting pedal edema NEUROLOGICAL: Gross neurological examination did not reveal any focal deficits. SKIN: No rashes. Results CBC & Chem 7: 12/25/20 09:56 12/25/20 09:56 Labs: Abnormal Lab Results - Last 24 Hours (Table) 12/25/20 12/25/20 Range/Units 09:56 09:56 RBC 3.46 L (4.30-5.90) m/uL Hgb 11.1 L (13.0-17.5) gm/dL Hct 32.8 L (39.0-53.0) % RDW 15.7 H (11.5-15.5) % Lymphocytes # 0.8 L (1.0-4.8) k/uL Sodium 136 L (137-145) mmol/L BUN 26 H (9-20) mg/dL Glucose 198 H (74-99) mg/dL Assessment and Plan Plan: -Syncope: Possibly vasovagal event repeat echocardiogram is being obtained for ALLERGY evaluated the patient patient will be monitored overnight here today ajith cerda blood pressure is definitely low patient is presently on Coreg probably can be switched to Toprol-XL or metoprolol Congestive heart failure: Chronic systolic dysfunction with acute exacerbation patient was started on IV Lasix patient has ischemic cardiomyopathy patient will need an AICD -Coronary artery disease -Hypertension Hyperlipidemia -DVT prophylaxis with Lovenox
[2020-12-25] MEDS: carvediloL 3.125 MG TAB PO SCH (18:36)
[2020-12-26] MEDS ORDERED: ASPIRIN 81 MG PO SCH (04:00)
[2020-12-26] MEDS ORDERED: EZETIMIBE 10 MG TAB PO SCH (04:00)
[2020-12-26] MEDS ORDERED: ATORVASTATIN 80 MG TAB PO SCH (04:00)
[2020-12-26 08:12] VITALS: BP 124/68; PULSE 78; RESP 14; TEMP 98.2
[2020-12-26] MEDS: AMIODARONE 200 MG TAB PO SCH (08:26)
[2020-12-26] MEDS: carvediloL 3.125 MG TAB PO SCH (08:26)
[2020-12-26] MEDS: FUROSEMIDE 10 MG/ML 4 ML VIAL IV SCH (08:26)
[2020-12-26] MEDS ORDERED: ENOXAPARIN 40 MG/0.4 ML SYRINGE SQ SCH (09:00)
[2020-12-26] MEDS ORDERED: SPIRONOLACTONE 25 MG TAB PO SCH (09:00)
[2020-12-26 10:59] LABS: African American GFR (CKD) 66.3 (60.0-200.0); Anion Gap 6.6 mmol/L (4.00-12.00); BUN/Creat Ratio 21.67 Ratio (12.00-20.00); Calcium 9.2 mg/dL (8.7-10.3); Carbon Dioxide 30.4 mmol/L (21.6-31.8); Non-African American GFR(CKD) 57.2 (60.0-200.0); Potassium 4.4 mmol/L (3.5-5.5)
--- NOTE | 2020-12-26 15:10 | P.PN ---
Subjective Progress Note Date: 12/26/20 HISTORY OF PRESENT ILLNESS: This is a 80-year-old male with a past medical history significant for congestive heart failure, hypertension, hyperlipidemia, cardiomyopathy, and nonsustained ventricular tachycardia. Patient follows in the office with Dr. Cary. We have been asked to see the patient in consultation for syncope and congestive heart failure. Patient examined at the bedside in the emergency room. Patient states he was cooking dinner for [employer] yesterday and was feeling in his normal state of health. He does report he has been feeling a little short of breath for the past few days but nothing significant. He states he went to open oven door to get out a ham and when he felt the heat from 11 hip him he passed out. He denies feeling dizzy or lightheaded before this. He denies having chest pain or worsening shortness of breath prior to this. Patient denies biting his tongue. He denies loss of bowel or bladder control. He states his life vest was beeping when he woke up. He reports feeling mildly confused for a very short time afterwards. At the time of examination, the patient denies chest pain or pressure. He denies dizziness or lightheadedness. He denies shortness of breath. He reports lower extremity edema which he states is near his baseline. Patient was recently hospitalized last month for congestive heart failure. He was found to have worsening LV function. He underwent cardiac catheterization at that time (details below). Patient was going to have an ICD placed however he developed an infection of his left arm from an IV and was placed on antibiotics and his ICD implantation was postponed. EKG reveals sinus rhythm with first-degree AV block. Left bundle branch block. Chest x-ray completed at outside facility revealed right trace pleural effusion Laboratory data: Troponin 0.013. BNP 11,800. Current home cardiac medications include Coreg 3.125 mg twice a day, Aldactone 25 mg daily, Lasix 40 mg twice a day, Zetia 10 mg daily, Lipitor 80 mg daily, aspirin 81 mg daily, and amiodarone 20 mg daily Most recent echocardiogram obtained on 12/08/2020 revealed ejection fraction 20- 25%, mild mitral regurgitation, mild tricuspid regurgitation, and mild pulmonary hypertension. Cardiac catheterization history: 12/13/2020 revealing calcified coronary arteries. Chronically occluded right coronary artery with moderate disease in the LAD and left circumflex. Collaterals from the left coronary system towards RCA. Mild pulmonary hypertension. 12/26/2020 Patient examined this morning at the bedside. Patient denies chest pain or pressure. He denies shortness of breath. Patient remains on IV Lasix. Patient is hoping to be discharged home today. PHYSICAL EXAM: VITAL SIGNS: Reviewed. GENERAL: Well-developed in no acute distress. HEENT: Head is normocephalic. Pupils are equal, round. Sclerae anicteric. Mucous membranes of the mouth are moist. Neck supple. No JVD or thyromegaly LUNGS: Respirations even and unlabored. Lungs diminished with bibasilar rales HEART: Regular rate and rhythm. S1 and S2 heard. ABDOMEN: Soft. Nondistended. Nontender. EXTREMITIES: Normal range of motion. No clubbing or cyanosis. Peripheral pulses intact. 2+ bilateral lower extremity edema NEUROLOGIC: Awake and alert. Oriented x 3. ASSESSMENT: Syncope Acute exacerbation of chronic systolic heart failure, ejection fraction 20-25% Ischemic cardiomyopathy, currently on life vest Coronary artery disease Hypertension Hyperlipidemia Recent left upper extremity infection, secondary to IV PLAN: Patient to undergo ICD placement in the next few weeks Discontinue IV Lasix. Transition to oral Lasix 40 mg twice a day Monitor kidney function Daily weights Accurate I&O Patient is stable for discharge home today from a cardiac standpoint. He is follow up on an outpatient basis. We will sign off. Please reconsult if needed. Nurse practitioner note has been reviewed by physician. Signing provider agrees with the documented findings, assessment, and plan of care. Objective - Vital Signs Vital signs: Vital Signs Temp 98.2 F 12/26/20 08:11 Pulse 78 12/26/20 08:11 Resp 14 12/26/20 08:11 BP 124/68 12/26/20 08:11 Pulse Ox 96 12/26/20 08:11 Intake & Output 12/25/20 12/26/20 12/26/20 18:59 06:59 18:59 Weight 79.379 kg Other: Voiding Method Toilet Urinal # Voids 2 - Labs CBC & Chem 7: 12/25/20 09:56 12/26/20 05:35 Labs: Abnormal Lab Results - Last 24 Hours (Table) 12/26/20 Range/Units 05:35 Est GFR (CKD-EPI)NonAf 57.2 L (60.0-200.0) BUN/Creatinine Ratio 21.67 H (12.00-20.00) Ratio
[2020-12-26] MEDS ORDERED: FUROSEMIDE 40 MG TAB PO SCH (16:00)
--- NOTE | 2020-12-26 16:46 | P.DS ---
Providers Date of admission: 12/25/20 02:51 Expected date of discharge: 12/26/20 Attending physician: Radha Guerrier Primary care physician: Sabas Marroquin Hospital Course: Final diagnosis -Syncope: Possibly vasovagal event -Congestive heart failure: Chronic systolic dysfunction with acute exacerbation, ischemic cardiomyopathy patient will need an AICD -Coronary artery disease -Hypertension -Hyperlipidemia -DVT prophylaxis Discharge disposition Patient is being discharged in a stable condition with guarded prognosis to home. Patient will follow-up with Dr. Marroquin in the outpatient setting upon discharge. Patient is also to follow-up with cardiology in the next few weeks. Total time taken is greater than 35 minutes. Hospital course 71-year-old pleasant male came in after a syncopal episode what appears like a vasovagal event or from his description. Patient had ischemic cardiomyopathy with the severely decreased EF of 25%. Patient appears to be in bit of heart failure although she he denied any paroxysmal nocturnal dyspnea he may have orthopnea was comparing of shortness of breath does have bilateral pedal edema. Patient has a LifeVest that was a placed about 10 days ago and the patient ICD implantation was postponed because of his infection in the left arm as per the patient. It appears patient had (left upper extremity thrombophlebitis. Patient had a recent cardiac catheterization as well. Patient denied any chest pain at this time denied any fever chills dysuria. Patient is creatinine is 1.09 which is around his baseline. 12/26/2020 Patient is seen and evaluated this morning no acute overnight issues. Patient has been seen and evaluated by cardiology recommending outpatient follow-up continue with LifeVest at this time. Currently no reports of chest pain, worsening shortness of breath, or palpitations. Patient is afebrile. No reports of nausea or vomiting and patient is tolerating diet. Patient will be discharged home today. On exam vital signs are stable. Cardio S1, S2 are muffled. Respiratory system shows diminished breath sounds at the bases with no wheezing or rhonchi noted. Abdomen is soft and nontender. Nervous system shows focal deficits. Please refer to medication reconciliation sheet for a list of medications. Patient Condition at Discharge: Stable Plan - Discharge Summary New Discharge Prescriptions: Continue Nitroglycerin Sl Tabs [Nitrostat] 0.4 mg SUBLINGUAL Q5M PRN PRN Reason: Angina Aspirin EC [Ecotrin Low Dose] 81 mg PO DAILY@0400 Ezetimibe [Zetia] 10 mg PO DAILY@0400 Atorvastatin [Lipitor] 80 mg PO DAILY@0400 Spironolactone [Aldactone] 25 mg PO DAILY #30 tab Docusate [Colace] 100 mg PO BID PRN #30 capsule PRN Reason: Constipation Amiodarone [Cordarone] 200 mg PO DAILY #30 tab carvediloL [Coreg] 3.125 mg PO BID-W/MEALS #60 tab Furosemide [Lasix] 40 mg PO BID@0900,1600 #60 tab Discontinued Cephalexin [Keflex] 500 mg PO Q8HR 5 Days #15 cap Discharge Medication List Aspirin EC [Ecotrin Low Dose] 81 mg PO DAILY@39912/07/20 [History] Atorvastatin [Lipitor] 80 mg PO DAILY@39912/07/20 [History] Ezetimibe [Zetia] 10 mg PO DAILY@04012/07/20 [History] Nitroglycerin Sl Tabs [Nitrostat] 0.4 mg SUBLINGUAL Q5M PRN 12/07/20 [History] Amiodarone [Cordarone] 200 mg PO DAILY #30 tab 12/15/20 [Rx] Docusate [Colace] 100 mg PO BID PRN #30 capsule 12/15/20 [Rx] Furosemide [Lasix] 40 mg PO BID@0900,1600 #60 tab 12/15/20 [Rx] Spironolactone [Aldactone] 25 mg PO DAILY #30 tab 12/15/20 [Rx] carvediloL [Coreg] 3.125 mg PO BID-W/MEALS #60 tab 12/15/20 [Rx] Follow up Appointment(s)/Referral(s): Therese Cary MD [STAFF PHYSICIAN] - 2 Weeks Sabas Marroquin MD [Primary Care Provider] - 1-2 days Activity/Diet/Wound Care/Special Instructions: Activity Limited until follow-up follow up with primary care provider upon discharge Follow-up with cardiology outpatient continue current medications Discharge Disposition: HOME SELF-CARE
== END 2020-12-26 16:35 | disposition home or self-care (01) ==
LOC: EC 01:02 → 6NMEDSUR 02:51
PROVIDERS: ADMIT Hospitalist; ATTEND Hospitalist
DX: R55 Syncope and collapse (principal); I11.0 Hypertensive heart disease with heart failure; I50.23 Acute on chronic systolic (congestive) heart failure; I25.5 Ischemic cardiomyopathy; I25.10 Atherosclerotic heart disease of native coronary artery without angina pectoris; E78.5 Hyperlipidemia, unspecified; I44.0 Atrioventricular block, first degree; I44.7 Left bundle-branch block, unspecified; I25.2 Old myocardial infarction; Z79.82 Long term (current) use of aspirin; Z79.899 Other long term (current) drug therapy; Z90.81 Acquired absence of spleen; Z88.0 Allergy status to penicillin; Z82.49 Family history of ischemic heart disease and other diseases of the circulatory system; W18.39XA Other fall on same level, initial encounter; Y92.018 Other place in single-family (private) house as the place of occurrence of the external cause; Z20.822 Contact with and (suspected) exposure to COVID-19
CPT/HCPCS: 96372; 96376 ×2; 96374; 99285; 36415; 83880; 80048 ×2; 83735; 84484; 85025; 87635; G0378 ×2; J1940 ×2; J1650; 93005

== ENCOUNTER 2021-01-01 07:29 | Day surgery (SDC) | payer MEDICARE ==
[2020-12-29 08:59] VITALS: BMI 23.7
[~2021-01-01 07:29] MED LIST: SODIUM CHLORIDE 0.9% 1,000 ML IV SCH; VANCOMYCIN 1,500 MG in SODIUM CHLORIDE 0.9% 250 ML IVPB STA; VANCOMYCIN IV PER PHARMACY 1 EACH MISC MISCELLANE PRN
[2021-01-01] MEDS ORDERED: CLINDAMYCIN 600 MG in SODIUM CHLORIDE 0.9% 250 ML IRRIGATION PRN (07:30)
[2021-01-01] MEDS ORDERED: CLINDAMYCIN 900 MG in DEXTROSE 5% IN WATER 50 ML IVPB PRN ×2 (07:30)
[2021-01-01] MEDS ORDERED: SODIUM CHLORIDE 0.9% 500 ML 500 ML IV ONE (08:22)
[2021-01-01 08:25] VITALS: TEMP 97.7
[2021-01-01] MEDS ORDERED: VANCOMYCIN 1,000 MG VIAL IVPB ONE (08:31)
[2021-01-01] MEDS ORDERED: MIDAZOLAM 2 MG/2 ML VIAL ONE (13:37)
[2021-01-01] MEDS ORDERED: ePHEDrine SULFATE/0.9% NACL/PF 50 MG/5 ML SYRINGE IV ONE (13:37)
[2021-01-01] MEDS ORDERED: fentaNYL (PF) 50 MCG/ML 2 ML AMP ONE (13:37)
[2021-01-01] MEDS: IOPAMIDOL-250 50ML BTL IV ONE ×2 (13:59→14:46)
[2021-01-01] MEDS ORDERED: LIDOCAINE 1% INJ 10MG/ML (20 ML MDV) SQ ONE (14:23)
[2021-01-01] MEDS ORDERED: ACETAMINOPHEN TAB 325 MG TAB PO PRN (16:42)
[2021-01-01] MEDS ORDERED: HYDROcodone/APAP 5-325MG 1 EACH TAB PO PRN (16:42)
[2021-01-01 16:45] VITALS: RESP 6
[2021-01-01] MEDS ORDERED: carvediloL 3.125 MG TAB PO SCH (17:30)
--- NOTE | 2021-01-01 17:56 | CE ---
CARDIAC ELECTROPHYSIOLOGY REPORT Mr. Hines is a 80-year-old male patient with ischemic cardiomyopathy who has sustained fast VT/ventricular flutter and received a shock from his Life Vest. He has class 3 congestive heart failure, left bundle branch block, QRS width of 150 milliseconds, mildly prolonged IA interval and CAD, status post coronary stenting, severe ischemic cardiomyopathy, on guideline-directed medical treatment. He was brought in for a biventricular ICD implant. This has been delayed on account of thrombophlebitis and he received IV antibiotics. His IV site has now healed well. He received IV vancomycin prior to the procedure. The patient was brought to the EP lab in a fasting state. Written informed consent was obtained prior to the procedure. The left shoulder area was prepped and draped as per protocol. Lidocaine 1% was used for local anesthesia. A 4 cm incision was made parallel to the deltopectoral groove, about 1.5 cm medial to it. The incision was carried down to the level of the pectoralis muscle. A subfascial pocket was made. Hemostasis was assured. The left axillary vein was accessed at 3 separate points under fluoroscopy, and via appropriately-sized introducer sheaths, 3 leads were positioned. The atrial lead was a Medtronic model #5076, 52 cm in length, and serial number [id number]. The P waves were 2.3 mV, pacing impedance 1045 ohms, pacing threshold 1.1 volts at 0.5 milliseconds. Ten-volt test was negative. The ICD lead was a single-coil Medtronic model #6935M, 62 cm in length, and serial number #[id number] and that was screwed into the RV apex. R waves 7.1 mV, pacing impedance 885 ohms, pacing threshold 0.6 volts at 0.5 milliseconds. Ten-volt test was negative. The LV lead was positioned in the anterolateral vein and screwed in. This was a Medtronic model #4798, 88 cm in length, a screw-in lead, serial number [id number]. This was successfully placed and was screwed in this vein. Thresholds between electrode poles 3 and 4 were excellent, 0.6 volts at 0.5 milliseconds, pacing impedance 810 ohms. R waves 5.3 mV. No phrenic nerve stimulation. All 3 sheaths were removed. Leads were secured to the underlying pectoralis muscle and they were connected to the generator (eNov[employer] model #DTPB 2QQ, serial #[id number]). Leads and the generator were then placed in the subfascial pocket and the wound was closed in 3 layers and dressed per protocol. The device was secured to the underlying pectoralis muscle. The device was then programmed to DDD mode with biventricular pacing with zero LV offset. During atrial pacing, his IA were prolonged significantly, and adaptive biventricular/LV programming was not possible. His tachy therapies were programmed according to the MADIT-RIT programming with long detection intervals and antitachycardia pacing, cardioversion defibrillation. PLAN: Continue heart failure medications and DFT testing in about 3 months on oral amiodarone and maximize beta blockers. MMODL / IJN: [id number] /
[2021-01-01] MEDS ORDERED: ACETAMINOPHEN IV (For NPO) 1,000 MG in EMPTY BAG 1 BAG IVPB ONE (18:00)
--- NOTE | 2021-01-01 18:19 | XR ---
EXAMINATION TYPE: XR chest 1V portable DATE OF EXAM: 01/01/2021 COMPARISON: 12/24/2020 HISTORY: Check line placement TECHNIQUE: Single view FINDINGS: Heart is enlarged. There is no gross heart failure. There is blunting right costophrenic an gle with some infiltrate right lung base. There is left axillary pacemaker with lead tips in the righ t ventricle. IMPRESSION: Right pleural effusion and right lower lobe infiltrate increased compared to old exam. No heart failure. Pulmonary vascularity is improved slightly compared to old exam.
[2021-01-01 18:27] VITALS: BP 115/76; PULSE 57
[2021-01-01] MEDS ORDERED: EZETIMIBE 10 MG TAB PO SCH (21:00)
[2021-01-01] MEDS ORDERED: ATORVASTATIN 80 MG TAB PO SCH (21:00)
[2021-01-02] MEDS ORDERED: ASPIRIN 81 MG PO SCH (09:00)
[2021-01-02] MEDS ORDERED: AMIODARONE 200 MG TAB PO SCH (09:00)
[2021-01-02] MEDS ORDERED: SPIRONOLACTONE 25 MG TAB PO SCH (09:00)
[2021-01-02] MEDS ORDERED: FUROSEMIDE 40 MG TAB PO SCH (09:00)
== END 2021-01-01 19:03 | disposition home or self-care (01) ==
LOC: CATHEP 07:29 → 6NMEDSUR 16:45 → CATHEP 16:45
PROVIDERS: ATTEND Internal Medicine Clinical Cardiac Electrophysiology
DX: I25.5 Ischemic cardiomyopathy (principal); I25.10 Atherosclerotic heart disease of native coronary artery without angina pectoris; I25.82 Chronic total occlusion of coronary artery; I11.0 Hypertensive heart disease with heart failure; I50.20 Unspecified systolic (congestive) heart failure; E78.2 Mixed hyperlipidemia; Z90.81 Acquired absence of spleen; Z98.890 Other specified postprocedural states; Z87.891 Personal history of nicotine dependence; Z82.49 Family history of ischemic heart disease and other diseases of the circulatory system; Z79.82 Long term (current) use of aspirin; Z79.899 Other long term (current) drug therapy; Z88.0 Allergy status to penicillin
CPT/HCPCS: 33225; 33249; 71045; C1769 ×3; C1882; C1892; C1730; C1887; C1898; C1895; J2250; J3370; J0690; J2001; J3010; J0131; Q9966

== ENCOUNTER → 2021-02-08 | Outpatient (CLI) | payer MEDICARE ==
[2021-02-09 00:40] LABS: African American GFR (CKD) 65.8 (60.0-200.0); Albumin/Globulin Ratio 1.56 (1.60-3.17); BUN/Creat Ratio 15.83 Ratio (12.00-20.00); Carbon Dioxide 25.6 mmol/L (21.6-31.8); Chloride 105 mmol/L (96-109); Globulin 2.5 g/dL (1.6-3.3); Glucose 94 mg/dL (70-110); Non-African American GFR(CKD) 56.8 (60.0-200.0); Potassium 4.2 mmol/L (3.5-5.5); Sodium 139 mmol/L (135-145); Total Bilirubin 1.1 mg/dL (0.2-1.2); Total Protein 6.4 g/dL (6.2-8.2)
[2021-02-09 00:41] LABS: ALT 22 U/L (10-49); AST 23 U/L (14-35); Alkaline Phosphatase 109 U/L (41-126); Cholesterol 110 mg/dL (0-200); Triglycerides <50.0 mg/dL (0.0-149.0)
== END | disposition home or self-care (01) ==
LOC: LABWHC1 15:22
PROVIDERS: ATTEND Nurse Practitioner Adult Health
DX: I25.5 Ischemic cardiomyopathy (principal); I10 Essential (primary) hypertension; E03.9 Hypothyroidism, unspecified; E78.2 Mixed hyperlipidemia
CPT/HCPCS: 36415; 80053; 80061; 83880; 84443

== ENCOUNTER → 2021-04-04 | Outpatient (CLI) | payer MEDICARE ==
[2021-04-04 20:37] LABS: African American GFR (CKD) 46.5 (60.0-200.0); Albumin 3.9 g/dL (3.80-4.90); Albumin/Globulin Ratio 1.44 (1.60-3.17); Anion Gap 8.6 mmol/L (4.00-12.00); BUN/Creat Ratio 16.88 Ratio (12.00-20.00); Calcium 8.9 mg/dL (8.7-10.3); Carbon Dioxide 28.4 mmol/L (21.6-31.8); Globulin 2.7 g/dL (1.6-3.3); Non-African American GFR(CKD) 40.1 (60.0-200.0); Potassium 4.5 mmol/L (3.5-5.5); Total Bilirubin 1.2 mg/dL (0.2-1.2); Total Protein 6.6 g/dL (6.2-8.2)
== END | disposition home or self-care (01) ==
LOC: LABWHC1 13:54
PROVIDERS: ATTEND Nurse Practitioner Adult Health
DX: I25.5 Ischemic cardiomyopathy (principal)
CPT/HCPCS: 36415; 80053; 83880; 84443

== ENCOUNTER 2021-04-09 06:13 | Day surgery (SDC) | payer MEDICARE ==
[2021-04-05 12:19] VITALS: BMI 22.6
[~2021-04-09 06:13] MED LIST changes: +LACTATED RINGERS 1,000 ML IV SCH; -VANCOMYCIN 1,500 MG in SODIUM CHLORIDE 0.9% 250 ML IVPB STA; -VANCOMYCIN IV PER PHARMACY 1 EACH MISC MISCELLANE PRN
[2021-04-09 06:44] VITALS: RESP 18; TEMP 98.2
[2021-04-09 06:49] LABS: Basophils % (A) 1 %; Eosinophils # (A) 0.2 k/uL (0-0.7); Eosinophils % (A) 2 %; HCT 32.5 % (39.0-53.0); HGB 11.2 gm/dL (13.0-17.5); Lymphocytes # (A) 1.6 k/uL (1.0-4.8); Lymphocytes % (A) 24 %; MCH 32.5 pg (25.0-35.0); MCHC 34.3 g/dL (31.0-37.0); MCV 94.7 fL (80.0-100.0); Mean Platelet Volume 7.7; Monocytes # (A) 0.5 k/uL (0-1.0); Monocytes % (A) 8 %; Neutrophils % (A) 62 %; Platelet Count 218 k/uL (150-450); RBC 3.43 m/uL (4.30-5.90); WBC 6.5 k/uL (3.8-10.6)
[2021-04-09 06:57] LABS: Calcium 9.4 mg/dL (8.4-10.2); Potassium 4.4 mmol/L (3.5-5.1)
[2021-04-09] MEDS ORDERED: LIDOCAINE 1% INJ 10MG/ML (20 ML MDV) ONE (07:35)
[2021-04-09] MEDS ORDERED: PHENYLEPHRINE-0.9% NACL SYG 1,000 MCG/10 ML SYRINGE ONE (07:35)
[2021-04-09] MEDS ORDERED: PROPOFOL 10 MG/ML 20 ML VIAL IV ONE (07:35)
--- NOTE | 2021-04-09 07:52 | P.EPPROC ---
- EP Procedure Note Electrophysiology Procedure Note: Diagnosis 4/indication Severe cardio myopathy /chronic congestive heart failure class III History of ventricular tachycardia, on amiodarone 100 mg by mouth daily Status post Medtronic biventricular ICD Procedure Biventricular ICD was interrogated All catheters were interrogated for Bi V pacing. Patient has diaphragmatic stimulation in most nectars especially involving the distal LV poles Absence of diaphragmatic stimulation at 10 LV poles 3 and 4 at [employer]. for pacing the left ventricle Threshold 2 V at 0.5 ms DFT testing was performed Shock and T wave protocol was used to induce ventricular fibrillation this was adequately and appropriately detected at least sensitivity A 10 J shock resulted in a type II conversion to an AV sequential paced rhythm The device was then reprogrammed first cardioversion at 20 J First defibrillation 40 J Appropriate antitachycardia pacing programmed Bi V pacing incorporating the proximal LV poles for pacing left ventricle
[2021-04-09 09:25] VITALS: BP 99/55
[2021-04-09 09:30] VITALS: PULSE 57
== END 2021-04-09 09:10 | disposition home or self-care (01) ==
LOC: CATHEP 06:13
PROVIDERS: ATTEND Internal Medicine Clinical Cardiac Electrophysiology
DX: G72.89 Other specified myopathies (principal); I25.10 Atherosclerotic heart disease of native coronary artery without angina pectoris; I25.2 Old myocardial infarction; Z95.810 Presence of automatic (implantable) cardiac defibrillator; E78.5 Hyperlipidemia, unspecified; F17.210 Nicotine dependence, cigarettes, uncomplicated; I11.0 Hypertensive heart disease with heart failure; I50.9 Heart failure, unspecified
CPT/HCPCS: 93642; 80048; 85025; J2001; J2370; J2704

== ENCOUNTER → 2021-10-30 | Outpatient (CLI) | payer MEDICARE ==
[2021-10-30 18:24] LABS: African American GFR (CKD) 39.5 (60.0-200.0); Albumin 3.8 g/dL (3.8-4.9); Albumin/Globulin Ratio 1.1 (1.60-3.17); Anion Gap 14.7 mmol/L (10.00-18.00); BUN/Creat Ratio 25.14 Ratio (12.00-20.00); Calcium 9.5 mg/dL (8.7-10.3); Carbon Dioxide 25.7 mmol/L (20.0-27.5); Globulin 3.5 g/dL (1.6-3.3); Non-African American GFR(CKD) 34.1 (60.0-200.0); Potassium 4.6 mmol/L (3.5-5.5); Total Bilirubin 0.6 mg/dL (0.30-1.20); Total Protein 7.3 g/dL (6.2-8.2)
== END | disposition home or self-care (01) ==
LOC: LABWHC1 11:23
PROVIDERS: ATTEND Nurse Practitioner Adult Health
DX: I25.5 Ischemic cardiomyopathy (principal)
CPT/HCPCS: 36415; 80053; 83880

== ENCOUNTER → 2021-12-03 | Outpatient (CLI) | payer MEDICARE ==
[2021-12-03 22:57] LABS: ALT 20 U/L (10-49); AST 21 U/L (14-35); African American GFR (CKD) 44.8 (60.0-200.0); Albumin 4.1 g/dL (3.8-4.9); Albumin/Globulin Ratio 1.15 (1.60-3.17); Alkaline Phosphatase 152 U/L (41-126); BUN/Creat Ratio 25.39 Ratio (12.00-20.00); Blood Urea Nitrogen 41.9 mg/dL (9.0-27.0); Calcium 9.8 mg/dL (8.7-10.3); Carbon Dioxide 23.6 mmol/L (20.0-27.5); Chloride 103 mmol/L (96-109); Globulin 3.6 g/dL (1.6-3.3); Glucose 104 mg/dL (70-110); Non-African American GFR(CKD) 38.6 (60.0-200.0); Potassium 4.4 mmol/L (3.5-5.5); Sodium 140 mmol/L (135-145); Total Protein 7.6 g/dL (6.2-8.2)
[2021-12-04 00:06] LABS: Chol/HDL Ratio 2.19 Ratio
== END | disposition home or self-care (01) ==
LOC: LABWHC1 15:43
PROVIDERS: ATTEND Nurse Practitioner Adult Health
DX: I25.5 Ischemic cardiomyopathy (principal); E78.2 Mixed hyperlipidemia; N18.9 Chronic kidney disease, unspecified; I47.2 Ventricular tachycardia
CPT/HCPCS: 36415; 80053; 80061; 83721; 83880; 84443